=== PATIENT | male | born 1950 | race Caucasian/White ===

== ENCOUNTER → 2023-08-06 07:10 | Outpatient (REF) | payer OTHER, SELFPAY | LOC: HWRAD 07:10 | PROVIDERS: ATTENDING PHYSICIAN Internal Medicine Critical Care Medicine; FAMILY PHYSICIAN Family Medicine | DX: R91.1 Solitary pulmonary nodule (principal) | CPT/HCPCS: 71250 ==

== ENCOUNTER 2023-10-29 15:51 | Inpatient (IN) | payer OTHER, SELFPAY ==
[2023-10-29] VITALS (10 sets, daily range): BP systolic 110–133; BP diastolic 56–78; BMI 24.2; BMI 23.9
[2023-10-29] MEDS: DUONEB 3 ML INH ×2 (12:34→19:50)
[2023-10-29] MEDS: DECADRON 10 MG IV (12:34)
[2023-10-29 13:10] LABS: % Basophils 0.3 % (0-2); % Eosinophils 0.4 % (0-6); % Immature Granulocytes 0.4 % (0-0.5); % Monocytes 8.3 % (1.7-9.3); % Neutrophils 88.6 % (42.2-75.2); Absolute Eosinophils 0.1 10^3/uL (0-0.7); Absolute Immature Granulocytes 0.1 10^3/uL (0-0.05); Absolute Lymphocytes 0.3 10^3/uL (1.2-3.4); Absolute Monocytes 1.3 10^3/uL (0.1-0.6); Absolute Neutrophils 13.8 10^3/uL (1.4-6.5); Hematocrit 42.1 % (39.0-52.0); Hemoglobin 14.2 g/dL (13.0-18.0); Mean Corp Hgb Conc. 33.7 g/dL (33.0-37.0); Mean Corpuscular Volume 94.8 fL (80.0-94.0); Mean Platelet Volume 9.6 fL (7.4-10.4); Nucleated Red Blood Cells % 0 % (-); Platelet Count 269 10^3/uL (130-400); Red Blood Cell Count 4.44 10^6/uL (4.70-6.10); Red Cell Dist. Width 12.7 % (11.5-14.5); White Blood Cell Count 15.6 10^3/uL (4.8-10.8)
[2023-10-29 13:11] LABS: Lactic Acid 2.6 mmol/L (0.7-2.0)
[2023-10-29 13:12] LABS: ALT (SGPT) 34 U/L (0-50); AST (SGOT) 43 U/L (17-59); Albumin 3.7 g/dl (3.5-5.0); Alkaline Phosphatase 97 U/L (38-126); Blood Urea Nitrogen 21 mg/dl (9-20); Calcium 8.9 mg/dl (8.4-10.2); Carbon Dioxide 30 mmol/L (22-30); Chloride 85 mmol/L (98-107); Glucose 157 mg/dl (70-99); Potassium 4.2 mmol/L (3.5-5.1); Sodium 123 mmol/L (135-145); Total Bilirubin 1.4 mg/dl (0.2-1.3); eGFR > 60.00
[2023-10-29 13:30] LABS: NT-proBNP 3510 pg/ml
[2023-10-29] MEDS: MAXIPIME 2000 MG IV (13:54)
[2023-10-29 15:24] LABS: Osmolality Serum 267 mOsm/kg (275-300)
[2023-10-29] MEDS: VANCOCIN 540 MG IV (15:24)
--- NOTE | 2023-10-29 15:41 | CON.PUL ---
Consultation
Consultation Request
Date/Time Consultation Requested: 10/29/2023
Date/Time Consultation Performed: 10/29/2023
Performing Provider: Dr. Kilo Virk
Reason for Consultation: Acute exacerbation of COPD/pneumonia
Medical History
-
History of Present Illness:
73-year-old man with history of COPD, seen in the pulmonary office today 10/29/2023. Came complaining of worsening shortness of breath, hypoxemic on arrival. Increased work of breathing. Complaining of night sweats and chills.
Symptoms ongoing for about a week, including decreased appetite and fatigue. Denies leg edema. Denies hemoptysis.
Sent to the emergency room for evaluation.
Patient is mildly hypoxemic.
Does report some coughing without purulent sputum production.
Denies leg edema.
Denies nausea vomiting or diarrhea.
Overall he has gained weight over the years.
Pt has been compliant with medications.
Past Medical History
Past Medical History: Other (See assessment and plan section)
Social History
Tobacco: Former Smoker
Alcohol: None
Drug: None
Personal:
Living: With Family
Family History
Family History: Reviewed & Not Pertinent
Allergies / Home Medications
Allergies
Allergy/AdvReac Type Severity Reaction Status Date / Time
doxycycline Allergy Unknown Hives Verified 10/29/23 11:54
lisinopril Allergy Unknown cough Verified 10/29/23 11:54
Home Medications
�Medication �Instructions �Recorded �Confirmed �Last Taken �Type
tamsulosin 0.4 mg capsule (Flomax) 0.4 mg PO BID Urinary Issue 06/15/14 10/29/23 10/29/23 History
amlodipine 2.5 mg tablet 10 mg PO DAILY Blood Pressure 09/11/16 10/29/23 10/29/23 History
multivitamin 1 ea PO DAILY Supplement 12/16/18 10/29/23 10/29/23 History
fluticasone fur. 200 mcg-umeclid 1 inh inhalation DAILY 08/07/22 10/29/23 10/29/23 History
62.5 mcg-vilant 25 mcg Lung/Breathing Issues
inhalat.powder (Trelegy Ellipta)
albuterol sulfate 90 mcg/actuation 2 puff inhalation Q4H PRN sob 11/03/22 10/29/23 10/29/23 History
aerosol inhaler (ProAir HFA)
omeprazole 40 mg capsule,delayed 40 mg PO BID GERD 10/29/23 10/29/23 10/29/23 History
release
valsartan 320 mg tablet (Diovan) 320 mg PO DAILY Blood Pressure 10/29/23 10/29/23 10/29/23 History
Review of Systems
-
History Source: Patient
All other systems: Negative unless noted
Vitals / Labs / Diagnostic Testing
Vital Signs
Temp Pulse Resp BP Pulse Ox
99.1 F 99 23 123/61 91
10/29/23 11:53 10/29/23 14:45 10/29/23 14:45 10/29/23 14:00 10/29/23 14:45
Lab Data
10/29/23 12:37
10/29/23 12:37
Diagnostic Testing:
Physical Exam
-
HEENT: Normocephalic
Cardiovascular: S1/S2
Respiratory: Wheeze (minimal bilaterally, scattered ronchi.)
GI: Soft and Non Distended
Neurology: Awake, Alert and Oriented
Skin: Warm
General: Respiratory Distress (n)
Assessment
-
73-year-old man with history of COPD-severe, atrial fibrillation, former smoker who is here for progressive shortness of breath. Sent to the emergency room from the pulmonary office as he was found also to be hypoxemic with increased work of
breathing.
Acute exacerbation of COPD/hypoxemic respiratory insufficiency
Chest x-ray 10/29/2023: Possible small right midlung opacity which could represent pneumonia.
Pneumonia
Leukocytosis
Hyponatremia
Mildly increased troponin: Increased proBNP. Cannot rule out cardiac etiology for symptoms as well.
EKG: Sinus tachycardia with premature ventricular complexes. Left atrial enlargement. Incomplete right bundle branch block. Nonspecific T T wave abnormality
Conditions present prior admission:
Hypertension
Prostate cancer status post radiation therapy
Premature ventricular contraction
Atrial fibrillation/atrial flutter status post ablation June 2015
History of multiple concussions
Hypercholesterolemia
History of gout
Polycythemia vera
Obstructive sleep apnea-gained about 30 pounds in the last 2 years.-Not on CPAP.
Peripheral eosinophilia
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
FEV1 0.82 L or 25% of predicted. Diffusion capacity 36%.
On Trelegy
Cardiomyopathy-35% ejection fraction.-LVEF recovered on echocardiogram 06/09/2022.
Esophageal cancer
Former smoker quit in 2019
History of waxing waning lung nodules last CT scan 08/06/2023

Plan and recommendations:
Clinical picture consistent with acute exacerbation of COPD, sent from the office for increased work of breathing and hypoxemia.
Comfortable in ED, says feels better.
Hemodynamically stable.
Chest x-ray suggestive of pneumonia.
Patient does have severe COPD. He was recommended in the past to get a transplant evaluation but he declined.
-
Agree with antibiotic therapy
Get a sputum culture
Secretion clearance interventions: Acapella device, mucolytic's
-
Continue oxygen supplementation to maintain pulse ox above 90%.
Currently on 3L ( usually not on supplemetal oxygen)
-
Agree with IV corticosteroids- minimal bronchospasm on exam.
Nebulizer with DuoNebs QID.
Okay to continue inhalers for now. If unable to perform maneuver then will transition to Pulmicort as well.
-
Chest x-ray as needed depending on clinical situation per
Patient will need radiographic follow-up in the outpatient setting.
Last CT chest from 08/06/2023 without any abnormality in the left lower lobe. He does have history of waxing waning pulmonary nodules.
-
Trend troponins. Currently chest pain-free.
Increased proBNP: May be in the setting of hypoxemia and RV dysfunction/underlying severe lung disease. Chest x-ray does not suggest pulmonary edema.
Echocardiogram ordered
Last echocardiogram showed normal LVEF of 65%. Mild MR. Normal biventricular size with pulmonary hypertension.
-
Hyponatremia management per primary team
-
Monitor blood sugars on high-dose corticosteroids.
Target 140-180.
Insulin as needed
-
DVT prophylaxis
-
Will follow
Outpatient pulmonary follow-up with Dr. Traylor after discharge.
--- NOTE | 2023-10-29 15:41 | HPS.HSE ---
Addendum entered and electronically signed by Curt Cortez MD 10/29/23 16:02:
see update note
Original Note:
Family Physician
-
Family Physician: Vivek Phillip
Chief Complaint
-
Shortness of Breath
History of Present Illness
Patient is a 73 y/o male with a past medical history of chronic obstructive pulmonary disease, hypertension, atrial fibrillation (status post ablation), and hypertension who presents with his for shortness of breath, productive cough,
subjective fever, lethargy, anorexia, and weakness that began on Wednesday night. On Wednesday and he started having chills, feeling weak, and coughing up thick brown sputum. His shortness of breath has gradually gotten worse during the week.
He made an appointment with pulmonology and was seen this morning for these symptoms. During the appointment, his pulse ox reading was in the 80s so he was sent to the emergency department. His reports that his liquid intake has been very poor
this week. She reports that yesterday he only drank a 6 oz cup of coffee and a bottle of water. He reports that his was sick with similar symptoms last week and was treated with Augmentin. He denies chest pain, lightheadedness, and lower
extremity edema. He denies prior episodes of pneumonia, or heart failure.
Medical History
Past Medical History
Past Medical History: Reports Other
Additional Past Medical History:
Paroxysmal atrial Fibrillation s/p Ablation Jun 2015
Essential Hypertension
Hyperlipidemia
Emphysema/COPD
Polycythemia Vera
Tejada's Esophagus
Prostate Cancer s/p Radiation Seeds
Past Surgical History: Reports Other
Additional Past Surgical History:
Tonsillectomy
Hernia Repair
Social History
Tobacco: Former Smoker (Quit 3 years ago)
Alcohol: Daily ([place] - Notes only one drink in the week due to feeling unwell)
Family History
Family History: Not pertinent
Allergies / Home Medications
Allergies reflects when Allergies were last updated in [facility].
Home Medications with original date entered in [facility]
Allergy/Medication List:
Allergies
Allergy/AdvReac Type Severity Reaction Status Date / Time
doxycycline Allergy Unknown Hives Verified 10/29/23 11:54
lisinopril Allergy Unknown cough Verified 10/29/23 11:54
Home Medications
tamsulosin 0.4 mg capsule (Flomax) 0.4 mg PO BID Urinary Issue 06/15/14
amlodipine 2.5 mg tablet 10 mg PO DAILY Blood Pressure 09/11/16
multivitamin 1 ea PO DAILY Supplement 12/16/18
fluticasone fur. 200 mcg-umeclid 62.5 mcg-vilant 25 mcg inhalat.powder (Trelegy Ellipta) 1 inh inhalation DAILY Lung/Breathing Issues 08/07/22
albuterol sulfate 90 mcg/actuation aerosol inhaler (ProAir HFA) 2 puff inhalation Q4H PRN sob 11/03/22
omeprazole 40 mg capsule,delayed release 40 mg PO BID GERD 10/29/23
valsartan 320 mg tablet (Diovan) 320 mg PO DAILY Blood Pressure 10/29/23
Review of Systems
-
A 12 point ROS was completed and negative except as noted: Yes
Constitutional: Reports Fever and Chills
Respiratory: Reports Cough and Trouble Breathing
Cardiac: Denies Chest Pain or Palpitations
Physical Exam
Vital Signs
Vital Signs
Temp Pulse Resp BP Pulse Ox
99.1 F 99 23 123/61 91
10/29/23 11:53 10/29/23 14:45 10/29/23 14:45 10/29/23 14:00 10/29/23 14:45
Physical Exam
General: Comfortable and Conversant
HEENT: Anicteric, Moist mucous membranes and Oxygen (Nasal Cannula)
Respiratory: Wheezes (Few scattered, more prominent on left) and Rales (Few bilateral bases)
Cardiac: S1/S2 and Regular Rhythm; No Murmur
GI: Soft, Non Tender and Non Distended
Rectal: Deferred by Provider
Musculoskeletal: No Clubbing, No Cyanosis and No Edema
Skin: Warm and Dry
Neuro: Awake, Alert, Oriented and Nonfocal/grossly intact
Psych: Calm
Laboratory Results
-
10/29/23 12:37
10/29/23 12:37
Laboratory Results
Lactic Acid 2.6 mmol/L (0.7-2.0) H 10/29/23 12:37
Total Bilirubin 1.4 mg/dl (0.2-1.3) H 10/29/23 12:37
AST 43 U/L (17-59) 10/29/23 12:37
ALT 34 U/L (0-50) 10/29/23 12:37
Alkaline Phosphatase 97 U/L (38-126) 10/29/23 12:37
Troponin I 0.050 ng/ml H* 10/29/23 12:37
Data Reviewed
-
Diagnostic Radiology: Report Reviewed by me
Lab Data: Labs Reviewed by me
Old Records: Reviewed
Impression/Plan
-
Acute Hypoxic Respiratory Insufficiency secondary to Pneumonia and Acute COPD Exacerbation
-Continue supplemental oxygen via nasal cannula
-Consult Pulmonary
Severe Sepsis secondary to Pneumonia
-Check COVID and Influenza
-Check strep and legionella antigen
-Check blood culture
-Check procalcitonin
-Continue ceftriaxone and azithromycin
Acute COPD Exacerbation
-Continue Decadron
-Continue DuoNeb QID and PRN
-Continue Pulmicort Neb
Elevated Troponin, suspect Non-Ischemic Myocardial Injury due to hypxa
-Continue to trend troponin
-Check Echo
Hyponatremia, unclear volume status
-Consult Nephrology
-Check serum osmo, urine osmo and urine sodium
-Check TSH and Cortisol
Paroxysmal Atrial Fibrillation s/p Ablation Jun 2015
-Monitor on Telemetry
Essential Hypertension
-Continue amlodipine and valsartan
Polycythemia Vera
-Hgb stable
Tejada's Esophagus
-Continue Protonix
Prostate Cancer s/p Radiation Seeds
-Continue Flomax
DVT proph: Lovenox
Code Status: Full Code
--- NOTE | 2023-10-29 15:55 | W.PN.UPDATE ---
Update Note
Progress Note Update
I saw and examined the patient.
The [employer] MACHINE OPERATOR or PA's note was reviewed and I agree with the note.
Comment: 73 y/o M hx of COPD, HTN, Afib s/p ablation presents with SOB, cough, fever, lethargy and weakness that began Wednesday night and progressed into chills and further weakness Wednesday/. His SOB worsened into today and he saw pulmonary
in office. They referred him to ER due to pulse ox 80%. In ER, found to have COPD exacerbation, PNA and hyponatremia. Pulm and Nephrology were consulted.
Plan: We will start IV Abx, IV steroids. check cultures. Check echo with concern with crackles on exam. Consider Lasix pending hyponatremia workup. Wean O2 - he is on 2L NC currently. Pulm and Nephrology were consulted - follow their recs.
Physical Exam
General: Comfortable and Conversant
HEENT: Anicteric, Moist mucous membranes and Oxygen (Nasal Cannula)
Respiratory: Wheezes (Few scattered, more prominent on left) and Rales (Few bilateral bases)
Cardiac: S1/S2 and Regular Rhythm; No Murmur
GI: Soft, Non Tender and Non Distended
Rectal: Deferred by Provider
Musculoskeletal: No Clubbing, No Cyanosis and No Edema
Skin: Warm and Dry
Neuro: Awake, Alert, Oriented and Nonfocal/grossly intact
Psych: Calm
[2023-10-29 16:12] LABS: COVID-19 Antigen Negative (Negative)
[2023-10-29 17:21] LABS: Lactic Acid 1.5 mmol/L (0.7-2.0)
[2023-10-29 17:22] LABS: Osmolality Urine 729 mOsm/kg (300-900)
--- NOTE | 2023-10-29 17:31 | W.CON.NEPH ---
Consultation
-
Date/Time Consultation Requested: 10/29/23 1400
Date/Time Consultation Performed: 10/29/23 1730
Requesting Provider: Curt Olivia
Performing Provider: Ilda Hernandez
Reason for Consultation: Hyponatremia
Medical History
-
Chief Complaint: Hypoxia, SOB
History of Present Illness:
73 y/o male with a past medical history of chronic obstructive pulmonary disease on inhalers, hypertension on diovan,Amlodipine, atrial fibrillation (status post ablation not on AC),prostate ca s/p radiation seed, GERD on PPI BID, polycythemia vera
phlebotomy by heme when HCt >48, possible chr hyponatremia in 130 range who presents with his for shortness of breath, productive cough, subjective fever, lethargy, anorexia, and weakness that began on 5days ago. started having chills, feeling
weak, and coughing up thick brown sputum few days after. His shortness of breath has gradually gotten worse during the week. He was at pulmonology this morning and pulse ox reading was in the 80s so he was sent to the emergency department. His
reports that his liquid intake has been very poor this week. He reports that his was sick with similar symptoms last week. He denies chest pain, lightheadedness, and lower extremity edema. He denies prior episodes of pneumonia, or heart failure.
He found to have COPD exacerbation, PNA and was admitted. he also found to have sodium of 123 hence nephrology consulted.
Past Medical History
Paroxysmal atrial Fibrillation s/p Ablation Jun 2015
Essential Hypertension
Hyperlipidemia
Emphysema/COPD
Polycythemia Vera
Tejada's Esophagus
Prostate Cancer s/p Radiation Seeds
Past Surgical History: Other (Tonsillectomy Hernia Repair)
Social History
Tobacco: Former Smoker (quit 3 yr ago)
Alcohol: Daily
Living: With Family
Family History
Family History: Not Pertinent
Allergies / Home Medications
Allergy/AdvReac Type Severity Reaction Status Date / Time
doxycycline Allergy Unknown Hives Verified 10/29/23 11:54
lisinopril Allergy Unknown cough Verified 10/29/23 11:54
�Medication �Instructions �Recorded �Confirmed �Type
tamsulosin 0.4 mg capsule (Flomax) 0.4 mg PO BID Urinary Issue 06/15/14 10/29/23 History
amlodipine 2.5 mg tablet 10 mg PO DAILY Blood Pressure 09/11/16 10/29/23 History
multivitamin 1 ea PO DAILY Supplement 12/16/18 10/29/23 History
fluticasone fur. 200 mcg-umeclid 1 inh inhalation DAILY 08/07/22 10/29/23 History
62.5 mcg-vilant 25 mcg Lung/Breathing Issues
inhalat.powder (Trelegy Ellipta)
albuterol sulfate 90 mcg/actuation 2 puff inhalation Q4H PRN sob 11/03/22 10/29/23 History
aerosol inhaler (ProAir HFA)
omeprazole 40 mg capsule,delayed 40 mg PO BID GERD 10/29/23 10/29/23 History
release
valsartan 320 mg tablet (Diovan) 320 mg PO DAILY Blood Pressure 10/29/23 10/29/23 History
Review of Systems
-
All complete 12 point ROS have been inquired and found negative other than stated in HPI
Physical Exam
Vital Signs
Vital Signs
Temp Pulse Resp BP Pulse Ox
98.1 F 95 16 124/76 91
10/29/23 17:26 10/29/23 17:26 10/29/23 17:26 10/29/23 17:26 10/29/23 17:26
Lab Results
WBC 15.6 10^3/uL (4.8-10.8) H 10/29/23 12:37
RBC 4.44 10^6/uL (4.70-6.10) L 10/29/23 12:37
Hgb 14.2 g/dL (13.0-18.0) 10/29/23 12:37
Hct 42.1 % (39.0-52.0) 10/29/23 12:37
Plt Count 269 10^3/uL (130-400) 10/29/23 12:37
Sodium 123 mmol/L (135-145) L 10/29/23 12:37
Potassium 4.2 mmol/L (3.5-5.1) 10/29/23 12:37
Chloride 85 mmol/L (98-107) L 10/29/23 12:37
Carbon Dioxide 30 mmol/L (22-30) 10/29/23 12:37
BUN 21 mg/dl (9-20) H 10/29/23 12:37
Creatinine 0.7 mg/dL (0.7-1.3) 10/29/23 12:37
eGFR > 60.00 10/29/23 12:37
Glucose 157 mg/dl (70-99) H 10/29/23 12:37
Calcium 8.9 mg/dl (8.4-10.2) 10/29/23 12:37
Xve-P-Mvxjunclhqo Pept 3510 pg/ml 10/29/23 12:37
Albumin 3.7 g/dl (3.5-5.0) 10/29/23 12:37
U osmo 729, U na <5
Pro BNP 3510
Physical Exam
General: Awake, Alert, Oriented, AOx3, No Distress and Nontoxic
HEENT: EOMI, Anicteric and No JVD
Respiratory: Wheezes (mild at bases) and Normal Excursion
Cardiac: S1/S2 and Regular Rate/Rhythm
Abdomen: Soft, Nontender and Nondistended
Musculoskeletal: No Cyanosis and No Edema
Skin: No Rash and Normal Turgor
Neuro: Nonfocal/Grossly Intact
Psych: Mood/afflect pleasant, Insight/judgement good and Appropriate
Data Reviewed
-
Radiology: Image Personally Visualized and interpreted and Report Reviewed by me
Labs: Labs Reviewed by me, Discussed with Patient and Discussed with Family
Assessment/Plan
-
IMP:
Acute Hypoxic Respiratory Insufficiency secondary to Pneumonia and Acute COPD Exacerbation
Severe Sepsis secondary to Pneumonia
Acute COPD Exacerbation
Elevated Troponin, suspect Non-Ischemic Myocardial Injury due to hypxa
Hyponatremia
Paroxysmal Atrial Fibrillation s/p Ablation Jun 2015
Essential Hypertension
Polycythemia Vera-phlebotomy with hematology
Tejada's Esophagus
Prostate Cancer s/p Radiation Seeds
PLan:
A/w COPD exacerabtion
Acute on chr Hyponatremia, suspect mild hypervolemia with elevated BNP, COPD flare
high ADH state, U osmo high at 729, U na <5-suggest cardiorenal vs poor solute intake
check TSH and cortisol in am
likely will dose lasix today(pt wants only oral today) with FR 40 ounces/day
check echo
BP are stable , cont home meds
d/w pt and at bedside in detail
[2023-10-29 17:33] LABS: Troponin I 0.033 ng/ml
[2023-10-29 17:37] LABS: Urine Sodium < 5 mmol/L (30-90)
[2023-10-29 17:47] LABS: Procalcitonin 1.24 ng/ml (0.0-0.25)
[2023-10-29] MEDS: DUONEB INH (18:03)
[2023-10-29] MEDS: FLUSH (NSS) 2 FLUSH IV (18:11)
[2023-10-29] MEDS: DECADRON 4 MG IV (18:11)
--- NOTE | 2023-10-29 18:18 | PTCARENOTE ---
pt arrived to unit at 1715 via stretcher from ED. pt has IV vanco running and connected to 2LNC. assessment completed by this nurse. pt and oriented to unit. AAOX3. connected to tele #[id number] running SR w/ frequent PVCs. admissions completed
[2023-10-29] MEDS: LASIX 20 MG PO (18:22)
[2023-10-29] MEDS: PULMICORT 0.5 MG INH (19:50)
[2023-10-29] MEDS: FLOMAX 0.400000000000000022 MG PO (20:49)
[2023-10-29] MEDS: ROCEPHIN 1000 MG IV (20:49)
[2023-10-29] MEDS: PROTONIX 40 MG PO (20:50)
[2023-10-29] MEDS: STERILE WATER FOR INJECTION 10 ML IV (20:50)
[2023-10-29] MEDS: FLUSH (NSS) 1 FLUSH IV (20:50)
[2023-10-30] VITALS (8 sets, daily range): BP systolic 113–122; BP diastolic 67–84; PULSE 88; O2SAT 83–87; BMI 23.9
[2023-10-30 00:38] LABS: Troponin I 0.015 ng/ml
[2023-10-30] MEDS: FLUSH (NSS) 1 FLUSH IV ×3 (01:05→20:44)
[2023-10-30] MEDS: DECADRON 4 MG IV ×4 (01:05→18:08)
[2023-10-30] MEDS: PULMICORT 0.5 MG INH ×2 (07:34→18:00)
[2023-10-30] MEDS: DUONEB 3 ML INH ×4 (07:34→18:00)
[2023-10-30] MEDS: ZITHROMAX 500 MG PO (08:38)
[2023-10-30] MEDS: DIOVAN 320 MG PO (08:39)
[2023-10-30] MEDS: PROTONIX 40 MG PO ×2 (08:39→20:43)
[2023-10-30] MEDS: FLOMAX 0.400000000000000022 MG PO ×2 (08:39→20:43)
[2023-10-30] MEDS: NORVASC 10 MG PO (08:39)
[2023-10-30 09:48] LABS: Hematocrit 40.4 % (39.0-52.0); Hemoglobin 14.2 g/dL (13.0-18.0); Mean Corp Hgb Conc. 35.1 g/dL (33.0-37.0); Mean Corpuscular Hgb 32.3 pg (27.0-31.0); Mean Platelet Volume 9.6 fL (7.4-10.4); Platelet Count 234 10^3/uL (130-400); Red Blood Cell Count 4.39 10^6/uL (4.70-6.10); Red Cell Dist. Width 12.4 % (11.5-14.5); White Blood Cell Count 12.3 10^3/uL (4.8-10.8)
--- NOTE | 2023-10-30 10:07 | W.PN.PUL3 ---
Today's Communication / Plan
-
Systemic steroids with wean as tolerated
DuoNebs + Budesonide
Up OOB as tolerated
Incentive spirometer encouraged
Flutter valve
Abx - azithromycin x 5 days, cephalosporin x 7 days
Assessment
-
73-year-old man with history of COPD-severe, atrial fibrillation, former smoker who is here for progressive shortness of breath. Sent to the emergency room from the pulmonary office as he was found also to be hypoxemic with increased work of
breathing.
Acute exacerbation of COPD/hypoxemic respiratory insufficiency
Chest x-ray 10/29/2023: Possible small right midlung opacity which could represent pneumonia.
Pneumonia
Leukocytosis
Hyponatremia
Mildly increased troponin: Increased proBNP. Cannot rule out cardiac etiology for symptoms as well.
EKG: Sinus tachycardia with premature ventricular complexes. Left atrial enlargement. Incomplete right bundle branch block. Nonspecific T T wave abnormality
Conditions present prior admission:
Hypertension
Prostate cancer status post radiation therapy
Premature ventricular contraction
Atrial fibrillation/atrial flutter status post ablation June 2015
History of multiple concussions
Hypercholesterolemia
History of gout
Polycythemia vera
Obstructive sleep apnea-gained about 30 pounds in the last 2 years.-Not on CPAP.
Peripheral eosinophilia
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
FEV1 0.82 L or 25% of predicted. Diffusion capacity 36%.
On Trelegy
Cardiomyopathy-35% ejection fraction.-LVEF recovered on echocardiogram 06/09/2022.
Esophageal cancer
Former smoker quit in 2018
History of waxing waning lung nodules last CT scan 08/06/2023

Plan and recommendations:
Clinical picture consistent with acute exacerbation of COPD, sent from the office for increased work of breathing and hypoxemia.
Comfortable in ED, says feels better.
Hemodynamically stable.
Chest x-ray suggestive of pneumonia.
Patient does have very severe COPD (FEV1: 25%). He was recommended in the past to get a transplant evaluation but he declined.
-
Agree with antibiotic therapy
Sputum culture obtained today - follow up
Secretion clearance interventions: Acapella device, mucolytic's
-
Continue oxygen supplementation to maintain pulse ox above 90%.
Currently on 2L ( usually not on supplemental oxygen)
-
Agree with IV corticosteroids- minimal bronchospasm on exam.
Nebulizer with DuoNebs QID with pulmicort 0.5mg BID
-
Patient will need radiographic follow-up in the outpatient setting.
Last CT chest from 08/06/2023 without any abnormality in the left lower lobe. He does have history of waxing waning pulmonary nodules.
-
No need to continue trending troponin given it peaked at 0.05 on 10/29/2023 - currently chest pain-free.
Increased proBNP: May be in the setting of hypoxemia and RV dysfunction/underlying severe lung disease. Chest x-ray does not suggest pulmonary edema.
Echocardiogram ordered with LVEF 50-55% with RV pressure overload with mild pHTN (PASP: 39mmHg assuming RAP: 8)
Last echocardiogram showed normal LVEF of 65%. Mild MR. Normal biventricular size with pulmonary hypertension.
-
Hyponatremia management per primary team
-
Monitor blood sugars on high-dose corticosteroids.
Target 140-180.
Insulin as needed
-
DVT prophylaxis
-
Will follow
Outpatient pulmonary follow-up with Dr. Traylor after discharge.
Total time spent today was 35 minutes for this encounter. Time includes reviewing laboratory test/imaging results, reviewing pertinent medical records, obtaining and reviewing medical history, performing an appropriate exam, ordering medications,
tests and procedures. Time also includes documentation of this encounter, coordinating patient care and communicating with other healthcare professionals. Total time does not include separately billed tests performed on this date of service.
Subjective Data
-
Date of Service:
Date of Service: October 30, 2023
Chief Complaint: Pulmonary Follow Up
Subjective:
Patient seen this morning. at bedside. He is on 2 L/min nasal cannula breathing comfortably. Of note, he is not on home oxygen. He denies chest pain, headache, abdominal pain, fevers or chills.
Review of Systems
General: Other (Negative unless mentioned above)
Objective Data
Data Reviewed
Vital Signs / I&O / Oxygen:
Vital Signs
Temp Pulse Resp BP Pulse Ox
97.5 F 84 17 113/69 94
10/30/23 07:52 10/30/23 07:52 10/30/23 07:52 10/30/23 07:52 10/30/23 07:52
Intake and Output
10/29/23 10/30/23 10/31/23
06:59 06:59 06:59
Intake Total 280 / 280
Balance 280 / 280
SaO2 94
Nasal Cannula flow liters per 2
minute
Physical Exam
General: Respiratory Distress (Negative) and Comfortable
HEENT: Normocephalic and Anicteric
Cardiovascular: S1-S2 and Peripheral Edema (Negative)
Respiratory: Wheeze (Hopkins best in the anterior right hemithorax), Crackles (Negative), Rhonchi (Right posterior hemithorax), Accessory Resp Muscle Use (Negative) and Other (Bronchial breath sounds in the right posterior hemithorax)
GI: Soft, Non Distended and Non Tender
Neurology: AO x 3
Skin: Warm, Dry and Cyanosis (Negative)
Labs/Micro/Reports
Lab Data
10/30/23 08:58
Microbiology
10/29/23 15:23 Urine Legionella Urinary Antigen - Final
Negative for Legionella pneumophila Serogroup 1 antigen.
A negative result does not rule out the possiblity of
Legionella infection due to other serogroups or species of
Legionella. Clinical correlation is recommended.
10/29/23 15:23 Urine Streptococcus pneumoniae Antigen (M - Final
Negative for Streptococcus pneumoniae antigen.
A negative result does not exclude infection with
Streptococcus pneumoniae. Clinical correlation is
recommended.
10/29/23 15:23 Nasal Swab Influenza Types A & B (DUNIA) - Final
Negative for Influenza A & B, NAAT
Negative results must be combined with clinical observations
and patient history.
Nucleic Acid Amplification test (NAAT)performed on the
[employer] platform.
[2023-10-30 11:15] LABS: TSH Reflex To Free T4 0.53 uIU/ml (0.47-4.68)
[2023-10-30 12:40] LABS: Blood Urea Nitrogen 22 mg/dl (9-20); Calcium 8.9 mg/dl (8.4-10.2); Carbon Dioxide 27 mmol/L (22-30); Chloride 90 mmol/L (98-107); Estimated Creatinine Clearance 119 ml/min; Glucose 186 mg/dl (70-99); Potassium 4.1 mmol/L (3.5-5.1); Sodium 125 mmol/L (135-145); eGFR > 60.00
--- NOTE | 2023-10-30 12:42 | W.PN.NEPH.PH ---
Today's Communication / Plan
-
lasix
Assessment/Plan
-
IMP:
Acute Hypoxic Respiratory Insufficiency secondary to Pneumonia and Acute COPD Exacerbation
Severe Sepsis secondary to Pneumonia
Acute COPD Exacerbation
Elevated Troponin, suspect Non-Ischemic Myocardial Injury due to hypxa
Hyponatremia
Paroxysmal Atrial Fibrillation s/p Ablation Jun 2015
Essential Hypertension
Polycythemia Vera-phlebotomy with hematology
Tejada's Esophagus
Prostate Cancer s/p Radiation Seeds
PLan:
lasix 20mg po daily given echo findings.
follow BMP
TSH/cortisol ok
wean O2 as allowed
-
-
Date of Service: October 30, 2023
CC / HPI / ROS
-
Chief Complaint:
hyponatremia
History of Present Illness:
Na up to 125
BP stable
diuresed with lasix for CHF
Review of Systems:
no CP/SOB
remains on supplemental O2
Labs
-
Labs:
WBC 12.3 10^3/uL (4.8-10.8) H 10/30/23 08:58
RBC 4.39 10^6/uL (4.70-6.10) L 10/30/23 08:58
Hgb 14.2 g/dL (13.0-18.0) 10/30/23 08:58
Hct 40.4 % (39.0-52.0) 10/30/23 08:58
Plt Count 234 10^3/uL (130-400) 10/30/23 08:58
Sodium 125 mmol/L (135-145) L 10/30/23 08:58
Potassium 4.1 mmol/L (3.5-5.1) 10/30/23 08:58
Chloride 90 mmol/L (98-107) L 10/30/23 08:58
Carbon Dioxide 27 mmol/L (22-30) 10/30/23 08:58
BUN 22 mg/dl (9-20) H 10/30/23 08:58
Creatinine 0.4 mg/dL (0.7-1.3) L 10/30/23 08:58
eGFR > 60.00 10/30/23 08:58
Glucose 186 mg/dl (70-99) H 10/30/23 08:58
Calcium 8.9 mg/dl (8.4-10.2) 10/30/23 08:58
Cvi-W-Ljmkdxzpdjo Pept 3510 pg/ml 10/29/23 12:37
Albumin 3.7 g/dl (3.5-5.0) 10/29/23 12:37
Physical Exam
-
Vital Signs:
Vital Signs
Temp Pulse Resp BP Pulse Ox
97.6 F 76 20 117/84 98
10/30/23 11:04 10/30/23 11:12 10/30/23 11:12 10/30/23 11:04 10/30/23 11:12
Cardiovascular:: Regular rate and rhythm
Respiratory:: Bilateral: Coarse
Lung Excursion:: Normal
Abdomen:: Nontender and Soft
Bowel Sounds:: Normal
Extremity Edema:: None: Bilateral:
--- NOTE | 2023-10-30 13:27 | W.PN.HOSP.TC ---
Today's Communication/Plan
-
CW ABX
CW Steroids
Follow Na
Assessment / Plan
Assessment / Plan
Acute Hypoxic Respiratory Insufficiency secondary to Pneumonia and Acute COPD Exacerbation
-Continue supplemental oxygen via nasal cannula
-wean as able
Severe Sepsis secondary to Pneumonia
-neg COVID and Influenza
-neg strep and legionella antigen
-pending blood culture
-Continue ceftriaxone and azithromycin
Acute COPD Exacerbation
-Continue Decadron
-Continue DuoNeb QID and PRN
-Continue Pulmicort Neb
- Pulm following
Elevated Troponin, suspect Non-Ischemic Myocardial Injury due to hypoxia
- Continue to trend troponin
- Echo noted
Hyponatremia, unclear volume status
- Nephrology following
-Serum osmo, urine osmo and urine sodium noted
-cw FR
Paroxysmal Atrial Fibrillation s/p Ablation Jun 2015
-Monitor on Telemetry
Essential Hypertension
-Continue amlodipine and valsartan
Polycythemia Vera
-Hgb stable
Tejada's Esophagus
-Continue Protonix
Prostate Cancer s/p Radiation Seeds
-Continue Flomax
DVT proph: Lovenox
Code Status: Full Code
Anticipated Discharge: > 48 hours
Subjective/Interval History
-
Date of Service: October 30, 2023
Improved breathing
Objective Data
-
Labs:
Laboratory Results
10/30/23
08:58
WBC 12.3 H
Hgb 14.2
Hct 40.4
Plt Count 234
Sodium 125 L
Potassium 4.1
Chloride 90 L
Carbon Dioxide 27
BUN 22 H
Creatinine 0.4 L
Glucose 186 H
Calcium 8.9
Vital Signs:
Vital Signs
Temp Pulse Resp BP Pulse Ox
97.6 F 76 20 117/84 98
10/30/23 11:04 10/30/23 11:12 10/30/23 11:12 10/30/23 11:04 10/30/23 11:12
I&O
10/29/23 10/30/23 10/31/23
06:59 06:59 06:59
Intake Total 280 / 280
Balance 280 / 280
Review of Systems
-
Constitutional: Denies Fever
EENT: Denies Sore Throat
Cardiac: Denies Chest Pain
Abdomen/GI: Denies Nausea or Vomiting
Neuro: Denies Dizzy
Physical Exam
-
General: No Apparent Distress
HEENT: Moist Mucous Membranes
Respiratory: Crackles (rt mid zone ), Non Labored Respirations and Decreased Breath Sounds (in general); Negative Accessory Resp Muscle Use
Cardiac: Regular Rhythm and S1/S2
Neuro: AO x 3
Data Reviewed
-
Labs: Labs Reviewed by me
[2023-10-30] MEDS: LASIX 20 MG PO (14:32)
[2023-10-30] MEDS: ROCEPHIN 1000 MG IV (20:43)
[2023-10-30] MEDS: STERILE WATER FOR INJECTION 10 ML IV (20:43)
[2023-10-31] MEDS: DECADRON 4 MG IV ×5 (00:02→23:42)
[2023-10-31] MEDS: FLUSH (NSS) 1 FLUSH IV (00:03)
[2023-10-31 03:20] VITALS: BP 122/66
[2023-10-31 06:00] VITALS: BMI 24.1
[2023-10-31] MEDS: PULMICORT 0.5 MG INH ×2 (07:27→19:20)
[2023-10-31] MEDS: DUONEB 3 ML INH ×4 (07:28→19:21)
[2023-10-31 07:46] VITALS: BP 111/75
[2023-10-31] MEDS: ZITHROMAX 500 MG PO (08:20)
[2023-10-31] MEDS: DIOVAN 320 MG PO (08:20)
[2023-10-31] MEDS: PROTONIX 40 MG PO ×2 (08:21→20:00)
[2023-10-31] MEDS: FLOMAX 0.400000000000000022 MG PO ×2 (08:21→20:00)
[2023-10-31] MEDS: LASIX 20 MG PO (08:21)
[2023-10-31] MEDS: NORVASC 10 MG PO (08:22)
[2023-10-31 08:56] LABS: Hematocrit 39.9 % (39.0-52.0); Hemoglobin 14.3 g/dL (13.0-18.0); Mean Corp Hgb Conc. 35.8 g/dL (33.0-37.0); Mean Corpuscular Hgb 32.2 pg (27.0-31.0); Mean Corpuscular Volume 89.9 fL (80.0-94.0); Mean Platelet Volume 9.5 fL (7.4-10.4); Platelet Count 261 10^3/uL (130-400); Red Blood Cell Count 4.44 10^6/uL (4.70-6.10); Red Cell Dist. Width 12.5 % (11.5-14.5); White Blood Cell Count 12.1 10^3/uL (4.8-10.8)
[2023-10-31 09:06] LABS: Blood Urea Nitrogen 24 mg/dl (9-20); Calcium 9.3 mg/dl (8.4-10.2); Carbon Dioxide 28 mmol/L (22-30); Chloride 89 mmol/L (98-107); Estimated Creatinine Clearance 119 ml/min; Glucose 173 mg/dl (70-99); Potassium 3.9 mmol/L (3.5-5.1); Sodium 128 mmol/L (135-145); eGFR > 60.00
[2023-10-31 11:18] VITALS: BP 110/66
--- NOTE | 2023-10-31 12:10 | W.PN.NEPH.PH ---
Today's Communication / Plan
-
continue lasix
Assessment/Plan
-
IMP:
Acute Hypoxic Respiratory Insufficiency secondary to Pneumonia and Acute COPD Exacerbation
Severe Sepsis secondary to Pneumonia
Acute COPD Exacerbation
Elevated Troponin, suspect Non-Ischemic Myocardial Injury due to hypxa
Hyponatremia
Paroxysmal Atrial Fibrillation s/p Ablation Jun 2015
Essential Hypertension
Polycythemia Vera-phlebotomy with hematology
Tejada's Esophagus
Prostate Cancer s/p Radiation Seeds
PLan:
lasix 20mg po daily given echo findings/hyponatremia.
follow BMP
wean O2 as allowed
-
-
Date of Service: October 31, 2023
CC / HPI / ROS
-
Chief Complaint:
hyponatremia
History of Present Illness:
Na up to 128
BP stable
diuresed with lasix for CHF
on supplemental O2 still 2L
Review of Systems:
no CP/SOB
remains on supplemental O2
Labs
-
Labs:
WBC 12.1 10^3/uL (4.8-10.8) H 10/31/23 08:35
RBC 4.44 10^6/uL (4.70-6.10) L 10/31/23 08:35
Hgb 14.3 g/dL (13.0-18.0) 10/31/23 08:35
Hct 39.9 % (39.0-52.0) 10/31/23 08:35
Plt Count 261 10^3/uL (130-400) 10/31/23 08:35
Sodium 128 mmol/L (135-145) L 10/31/23 08:35
Potassium 3.9 mmol/L (3.5-5.1) 10/31/23 08:35
Chloride 89 mmol/L (98-107) L 10/31/23 08:35
Carbon Dioxide 28 mmol/L (22-30) 10/31/23 08:35
BUN 24 mg/dl (9-20) H 10/31/23 08:35
Creatinine 0.4 mg/dL (0.7-1.3) L 10/31/23 08:35
eGFR > 60.00 10/31/23 08:35
Glucose 173 mg/dl (70-99) H 10/31/23 08:35
Calcium 9.3 mg/dl (8.4-10.2) 10/31/23 08:35
Eax-P-Ytyokuphgvw Pept 3510 pg/ml 10/29/23 12:37
Albumin 3.7 g/dl (3.5-5.0) 10/29/23 12:37
Physical Exam
-
Vital Signs:
Vital Signs
Temp Pulse Resp BP Pulse Ox
97.5 F 80 16 110/66 96
10/31/23 11:18 10/31/23 11:28 10/31/23 11:28 10/31/23 11:18 10/31/23 11:18
Cardiovascular:: Regular rate and rhythm
Respiratory:: Bilateral: Coarse
Lung Excursion:: Normal
Abdomen:: Nontender and Soft
Bowel Sounds:: Normal
Extremity Edema:: None: Bilateral:
--- NOTE | 2023-10-31 13:08 | W.PN.HOSP.TC ---
Today's Communication/Plan
-
Wean oxygen.
Continue antibiotics
Wean steroids per pulmonary
DC plan
Assessment / Plan
Assessment / Plan
Acute Hypoxic Respiratory Insufficiency secondary to Pneumonia and Acute COPD Exacerbation
-Continue supplemental oxygen via nasal cannula -currently on 2 L
-wean as able
Severe Sepsis secondary to Pneumonia
-neg COVID and Influenza
-neg strep and legionella antigen
-Negative blood culture
-Continue ceftriaxone and azithromycin
Acute COPD Exacerbation
-Continue Decadron
-Continue DuoNeb QID and PRN
-Continue Pulmicort Neb
- Pulm following
Elevated Troponin, suspect Non-Ischemic Myocardial Injury due to hypoxia
- Continue to trend troponin
- Echo noted
Hyponatremia, unclear volume status
- Nephrology following
-Serum osmo, urine osmo and urine sodium noted
-cw FR
-Improving sodium
Paroxysmal Atrial Fibrillation s/p Ablation Jun 2015
-Monitor on Telemetry
Essential Hypertension
-Continue amlodipine and valsartan
Polycythemia Vera
-Hgb stable
Tejada's Esophagus
-Continue Protonix
Prostate Cancer s/p Radiation Seeds
-Continue Flomax
DVT proph: Lovenox
Code Status: Full Code
DC planning
Anticipated Discharge: Within 24 hours
Subjective/Interval History
-
Date of Service: October 31, 2023
Feeling improved.
Objective Data
-
Labs:
Laboratory Results
10/31/23
08:35
WBC 12.1 H
Hgb 14.3
Hct 39.9
Plt Count 261
Sodium 128 L
Potassium 3.9
Chloride 89 L
Carbon Dioxide 28
BUN 24 H
Creatinine 0.4 L
Glucose 173 H
Calcium 9.3
Vital Signs:
Vital Signs
Temp Pulse Resp BP Pulse Ox
97.5 F 80 16 110/66 96
10/31/23 11:18 10/31/23 11:28 10/31/23 11:28 10/31/23 11:18 10/31/23 11:18
I&O
10/30/23 10/31/23 11/01/23
06:59 06:59 06:59
Intake Total 280 / 280 1355 / 1355
Balance 280 / 280 1355 / 1355
Review of Systems
-
Constitutional: Denies Fever
EENT: Denies Sore Throat
Respiratory: Reports Trouble Breathing (improved)
Cardiac: Denies Chest Pain
Abdomen/GI: Denies Abdominal Pain, Nausea or Vomiting
Neuro: Denies Dizzy
Physical Exam
-
General: No Apparent Distress
HEENT: Moist Mucous Membranes
Respiratory: Clear to Auscultation and Non Labored Respirations; Negative Wheezes or Accessory Resp Muscle Use
Cardiac: Regular Rhythm and S1/S2
GI: Soft
Neuro: AO x 3
Data Reviewed
-
Labs: Labs Reviewed by me
--- NOTE | 2023-10-31 13:13 | CM ---
Met with patient and at bedside; initial assessment completed
Pharmacy verified: [facility]
Patient lives with in a multilevel home; 2 steps to enter; 13 steps between floors; railing present
PLOF: reports he is independent with ADLs and ambulation; SOB going up stairs for the last week; Drives; Works part-time
SNF/Rehab/Home Health utilization history: none
Transportation: Son or Sister will provide ride home
Outpatient Therapy recommended; patient plans to speak with [facility] tomorrow
Plan: discharge to home when medically stable; will monitor for home oxygen needs
--- NOTE | 2023-10-31 13:16 | W.PN.PUL3 ---
Today's Communication / Plan
-
Systemic steroids with wean as tolerated
DuoNebs + Budesonide
Up OOB as tolerated
Incentive spirometer encouraged
Flutter valve
Abx - azithromycin x 5 days, cephalosporin x 7 days
Assessment
-
73-year-old man with history of COPD-severe, atrial fibrillation, former smoker who is here for progressive shortness of breath. Sent to the emergency room from the pulmonary office as he was found also to be hypoxemic with increased work of
breathing.
Acute exacerbation of COPD/hypoxemic respiratory insufficiency
Chest x-ray 10/29/2023: Possible small right midlung opacity which could represent pneumonia.
Pneumonia
Leukocytosis
Hyponatremia - improving
Mildly increased troponin - peaked at 0.05 on 10/29/2023: Increased proBNP. Cannot rule out cardiac etiology for symptoms as well.
EKG: Sinus tachycardia with premature ventricular complexes. Left atrial enlargement. Incomplete right bundle branch block. Nonspecific T T wave abnormality
Conditions present prior admission:
Hypertension
Prostate cancer status post radiation therapy
Premature ventricular contraction
Atrial fibrillation/atrial flutter status post ablation June 2015
History of multiple concussions
Hypercholesterolemia
History of gout
Polycythemia vera
Obstructive sleep apnea-gained about 30 pounds in the last 2 years.-Not on CPAP.
Peripheral eosinophilia
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
FEV1 0.82 L or 25% of predicted. Diffusion capacity 36%.
On Trelegy
Cardiomyopathy-35% ejection fraction.-LVEF recovered on echocardiogram 06/09/2022.
Esophageal cancer
Former smoker quit in 2018
History of waxing waning lung nodules last CT scan 08/06/2023

Plan and recommendations:
Clinical picture consistent with acute exacerbation of COPD, sent from the office for increased work of breathing and hypoxemia.
Comfortable in ED, says feels better.
Hemodynamically stable.
Chest x-ray suggestive of pneumonia.
Patient does have very severe COPD (FEV1: 25%). He was recommended in the past to get a transplant evaluation but he declined.
-
Agree with antibiotic therapy
Sputum culture obtained on 10/29 - NGTD
Secretion clearance interventions: Acapella device, mucolytics
-
Continue oxygen supplementation to maintain pulse ox above 90%.
Currently on 2L ( usually not on supplemental oxygen) - had walking O2 study today and he requires 2L/min with activity
-
Agree with IV corticosteroids- minimal bronchospasm on exam.
Nebulizer with DuoNebs QID with pulmicort 0.5mg BID
-
Patient will need radiographic follow-up in the outpatient setting.
Last CT chest from 08/06/2023 without any abnormality in the left lower lobe. He does have history of waxing waning pulmonary nodules.
-
No need to continue trending troponin given it peaked at 0.05 on 10/29/2023 - currently chest pain-free.
Increased proBNP: May be in the setting of hypoxemia and RV dysfunction/underlying severe lung disease. Chest x-ray does not suggest pulmonary edema.
Echocardiogram ordered with LVEF 50-55% with RV pressure overload with mild pHTN (PASP: 39mmHg assuming RAP: 8)
Last echocardiogram showed normal LVEF of 65%. Mild MR. Normal biventricular size with pulmonary hypertension.
-
Hyponatremia management per primary team
-
Monitor blood sugars on high-dose corticosteroids.
Target 140-180.
Insulin as needed
-
DVT prophylaxis
-
Will follow
Outpatient pulmonary follow-up with Dr. Traylor after discharge.
Total time spent today was 35 minutes for this encounter. Time includes reviewing laboratory test/imaging results, reviewing pertinent medical records, obtaining and reviewing medical history, performing an appropriate exam, ordering medications,
tests and procedures. Time also includes documentation of this encounter, coordinating patient care and communicating with other healthcare professionals. Total time does not include separately billed tests performed on this date of service.
Subjective Data
-
Date of Service:
Date of Service: October 31, 2023
Chief Complaint: Pulmonary Follow Up
Subjective:
Patient seen this afternoon. He remains on 2 L/min nasal cannula. He feels good today. He walked around with respiratory today 140 feet and required 2 L/min during ambulation to maintain saturations of 94%. He denies chest pain, headache, fevers
or chills.
Review of Systems
General: Other (Negative unless mentioned above)
Objective Data
Data Reviewed
Vital Signs / I&O / Oxygen:
Vital Signs
Temp Pulse Resp BP Pulse Ox
98.1 F 85 18 107/59 87
10/31/23 15:28 10/31/23 15:39 10/31/23 15:39 10/31/23 15:28 10/31/23 15:39
Intake and Output
10/30/23 10/31/23 11/01/23
06:59 06:59 06:59
Intake Total 280 / 280 1355 / 1355
Balance 280 / 280 1355 / 1355
SaO2 87
Nasal Cannula flow liters per 2
minute
Physical Exam
General: Respiratory Distress (Negative) and Comfortable
HEENT: Normocephalic and Anicteric
Cardiovascular: S1-S2 and Peripheral Edema (Negative)
Respiratory: Wheeze (Posterior lung michaels bilaterally), Crackles (Negative), Rhonchi (Bilateral lung michaels), Accessory Resp Muscle Use (Negative) and Other (Bronchial breath sounds in the right posterior hemithorax)
GI: Soft, Non Distended and Non Tender
Neurology: AO x 3
Skin: Warm, Dry and Cyanosis (Negative)
Labs/Micro/Reports
Lab Data
10/31/23 08:35
10/31/23 08:35
Microbiology
10/29/23 15:23 Blood/Venous Blood Culture - Preliminary
No Growth in 48 hours- Final report to follow
10/29/23 12:37 Blood/Venous Blood Culture - Preliminary
No Growth in 48 hours- Final report to follow
10/30/23 06:21 Sputum Respiratory Culture - Preliminary
Usual Respiratory Manjula
10/30/23 06:21 Sputum Gram Stain - Preliminary
10/29/23 15:23 Urine Legionella Urinary Antigen - Final
Negative for Legionella pneumophila Serogroup 1 antigen.
A negative result does not rule out the possiblity of
Legionella infection due to other serogroups or species of
Legionella. Clinical correlation is recommended.
10/29/23 15:23 Urine Streptococcus pneumoniae Antigen (M - Final
Negative for Streptococcus pneumoniae antigen.
A negative result does not exclude infection with
Streptococcus pneumoniae. Clinical correlation is
recommended.
10/29/23 15:23 Nasal Swab Influenza Types A & B (DUNIA) - Final
Negative for Influenza A & B, NAAT
Negative results must be combined with clinical observations
and patient history.
Nucleic Acid Amplification test (NAAT)performed on the
[employer] platform.
[2023-10-31 15:28] VITALS: BP 107/59
[2023-10-31] MEDS: ROCEPHIN 1000 MG IV (20:00)
[2023-10-31] MEDS: STERILE WATER FOR INJECTION 10 ML IV (20:01)
[2023-10-31 20:43] VITALS: BP 124/66
[2023-10-31 23:36] VITALS: BP 122/76
[2023-11-01 04:00] VITALS: BP 117/76
[2023-11-01 05:17] VITALS: BMI 24.3
[2023-11-01] MEDS: DECADRON 4 MG IV ×3 (05:35→20:42)
[2023-11-01 07:00] VITALS: BP 127/75
[2023-11-01 07:14] LABS: Blood Urea Nitrogen 20 mg/dl (9-20); Calcium 8.8 mg/dl (8.4-10.2); Carbon Dioxide 30 mmol/L (22-30); Chloride 89 mmol/L (98-107); Estimated Creatinine Clearance 119 ml/min; Glucose 172 mg/dl (70-99); Potassium 4.1 mmol/L (3.5-5.1); Sodium 128 mmol/L (135-145); eGFR > 60.00
[2023-11-01] MEDS: PULMICORT 0.5 MG INH ×2 (07:24→20:00)
[2023-11-01] MEDS: DUONEB 3 ML INH ×4 (07:25→20:00)
[2023-11-01] MEDS: PROTONIX 40 MG PO ×2 (07:41→20:49)
[2023-11-01] MEDS: FLOMAX 0.400000000000000022 MG PO ×2 (07:41→20:49)
[2023-11-01] MEDS: DIOVAN 320 MG PO (07:41)
[2023-11-01] MEDS: ZITHROMAX 500 MG PO (07:41)
[2023-11-01] MEDS: LASIX 20 MG PO (07:42)
[2023-11-01] MEDS: NORVASC 10 MG PO (07:42)
[2023-11-01 11:00] VITALS: BP 131/72
--- NOTE | 2023-11-01 11:21 | W.PN.HOSP.TC ---
Today's Communication/Plan
-
Wean steroids per pulmonary
Home O2 eval
DC planning
Assessment / Plan
Assessment / Plan
Acute Hypoxic Respiratory Insufficiency secondary to Pneumonia and Acute COPD Exacerbation
-Continue supplemental oxygen via nasal cannula -currently on 1 L
-wean as able
- Home O2 evaluation today
Severe Sepsis secondary to Pneumonia
-neg COVID and Influenza
-neg strep and legionella antigen
-Negative blood culture
-Continue ceftriaxone and azithromycin. Finished a course of 7 days of cephalosporin and 5 days of Zithromax. Follow-up chest x-ray for right lung pneumonia.
Acute COPD Exacerbation
-Continue Decadron per pulm
-Continue DuoNeb QID and PRN
-Continue Pulmicort Neb
- Pulm following
Elevated Troponin, suspect Non-Ischemic Myocardial Injury due to hypoxia
- Continue to trend troponin
- Echo noted
Hyponatremia, unclear volume status
- Nephrology following
-Serum osmo, urine osmo and urine sodium noted
-cw FR and lasix
-Improving sodium
Paroxysmal Atrial Fibrillation s/p Ablation Jun 2015
Essential Hypertension
-Continue amlodipine and valsartan
Polycythemia Vera
-Hgb stable
Tejada's Esophagus
-Continue Protonix
Prostate Cancer s/p Radiation Seeds
-Continue Flomax
DVT proph: Lovenox
Code Status: Full Code
If ok from pulm stadndpiont will start DC plan
Anticipated Discharge: Today
Subjective/Interval History
-
Date of Service: November 01, 2023
Feeling improved
denies shortness of breath at rest.
No fever or chills.
No nausea vomiting.
No chest pains.
Objective Data
-
Labs:
Laboratory Results
11/01/23
06:13
Sodium 128 L
Potassium 4.1
Chloride 89 L
Carbon Dioxide 30
BUN 20
Creatinine 0.4 L
Glucose 172 H
Calcium 8.8
Vital Signs:
Vital Signs
Temp Pulse Resp BP Pulse Ox
97.5 F 83 18 127/75 95
11/01/23 04:00 11/01/23 07:42 11/01/23 07:29 11/01/23 07:42 11/01/23 07:29
I&O
10/31/23 11/01/23 11/02/23
06:59 06:59 06:59
Intake Total 1355 / 1355 1380 / 1380
Balance 1355 / 1355 1380 / 1380
Review of Systems
-
EENT: Denies Sore Throat
Abdomen/GI: Denies Nausea or Vomiting
Neuro: Denies Dizzy
Physical Exam
-
General: No Apparent Distress
HEENT: Moist Mucous Membranes
Respiratory: Clear to Auscultation
Cardiac: S1/S2
GI: Soft
Neuro: AO x 3
Psych: Calm; Negative Confused
Data Reviewed
-
Labs: Labs Reviewed by me
--- NOTE | 2023-11-01 12:32 | W.PN.PUL3 ---
Today's Communication / Plan
-
Continue to wean steroids
He will require slow taper at time of discharge, 10 mg every 5 days till off
Continue with ambulation, encourage activity, airway clearance
He will require follow-up chest x-ray in 4 to 6 weeks
He is due for follow-up CT imaging thereafter
Assessment
-
73-year-old man with history of COPD-severe, atrial fibrillation, former smoker who is here for progressive shortness of breath. Sent to the emergency room from the pulmonary office as he was found also to be hypoxemic with increased work of
breathing.
Acute exacerbation of COPD/hypoxemic respiratory insufficiency
Chest x-ray 10/29/2023: Possible small right midlung opacity which could represent pneumonia.
Pneumonia
Leukocytosis
Hyponatremia - improving
Mildly increased troponin - peaked at 0.05 on 10/29/2023: Increased proBNP. Cannot rule out cardiac etiology for symptoms as well.
EKG: Sinus tachycardia with premature ventricular complexes. Left atrial enlargement. Incomplete right bundle branch block. Nonspecific T T wave abnormality
Conditions present prior admission:
Hypertension
Prostate cancer status post radiation therapy
Premature ventricular contraction
Atrial fibrillation/atrial flutter status post ablation June 2015
History of multiple concussions
Hypercholesterolemia
History of gout
Polycythemia vera
Obstructive sleep apnea-gained about 30 pounds in the last 2 years.-Not on CPAP.
Peripheral eosinophilia
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
FEV1 0.82 L or 25% of predicted. Diffusion capacity 36%.
On Trelegy
Cardiomyopathy-35% ejection fraction.-LVEF recovered on echocardiogram 06/09/2022.
Esophageal cancer
Former smoker quit in 2018
History of waxing waning lung nodules last CT scan 08/06/2023

Plan and recommendations:
At this time, patient appears to be objectively and subjectively improved
Chest exam with minimal wheezing
Air exchange adequate, bronchial breath sounds
Ambulatory saturation 86% earlier today
Patient presently on room air
Moving forward
I do feel he is slowly going in the right direction.
He admits to sick contact prior to symptom onset. at bedside to corroborate
Chest x-ray suggest patchy infiltrate, difficult to differentiate between infectious process, inflammatory process or mucous plugging
Patient with very little pulmonary reserve
Continue with IV prednisone, will transition to oral prednisone in the a.m. Okay to decrease to every 8 hours
Remains on ceftriaxone/azithromycin.
Consider transition to oral regimen
Patient has been doing well without flareups prior
We have been considering chronic macrolide therapy as outpatient but this will be deferred to outpatient setting decision
Severe COPD with FEV1 25%
Continue oxygen supplementation to maintain pulse ox above 90%.
Currently on 2L ( usually not on supplemental oxygen) - had walking O2 study today and he requires 2L/min with activity
Prior walk test 2021 89%. Patient had refused oxygen therapy in the past
Suspect he is close to his baseline
Nebulizer with DuoNebs QID with pulmicort 0.5mg BID
Patient will need radiographic follow-up in the outpatient setting.
Last CT chest from 08/06/2023 without any abnormality in the left lower lobe. He does have history of waxing waning pulmonary nodules.
Would recommend short-term follow-up chest x-ray. Patient is due for follow-up CT chest in February 2024
No need to continue trending troponin given it peaked at 0.05 on 10/29/2023 - currently chest pain-free.
Increased proBNP: May be in the setting of hypoxemia and RV dysfunction/underlying severe lung disease. Chest x-ray does not suggest pulmonary edema.
Echocardiogram ordered with LVEF 50-55% with RV pressure overload with mild pHTN (PASP: 39mmHg assuming RAP: 8)
Last echocardiogram showed normal LVEF of 65%. Mild MR. Normal biventricular size with pulmonary hypertension.
DVT prophylaxis: Enoxaparin
GI prophylaxis: Pantoprazole
Outpatient pulmonary follow-up with Dr. Traylor after discharge.
Hope for disposition in the next 24 hours
Subjective Data
-
Date of Service:
Date of Service: November 01, 2023
Chief Complaint: Pulmonary Follow Up
Subjective:
Patient is slowly improving. He states he ambulated earlier today, went down to 86%. Has mild productive cough, no chest pain, nausea, abdominal pain. Denies lightheadedness. Denied symptoms with saturation of 86%
Objective Data
Data Reviewed
Vital Signs / I&O / Oxygen:
Vital Signs
Temp Pulse Resp BP Pulse Ox
97.5 F 85 15 131/72 94
11/01/23 04:00 11/01/23 11:33 11/01/23 11:33 11/01/23 11:00 11/01/23 11:33
Intake and Output
10/31/23 11/01/23 11/02/23
06:59 06:59 06:59
Intake Total 1355 / 1355 1380 / 1380
Balance 1355 / 1355 1380 / 1380
SaO2 94
Nasal Cannula flow liters per 7
minute
Physical Exam
General: Comfortable
HEENT: Normocephalic and Anicteric
Cardiovascular: S1-S2, Regular Rhythm, Murmur (n), Rub (n) and Peripheral Edema (Negative)
Respiratory: Wheeze (Mild end expiratory), Crackles (Negative), Rhonchi (n), Non-Labored Respirations, Stridor (n) and Other (Bronchial breath sounds in the right posterior hemithorax)
GI: Soft, Non Distended and Non Tender
Neurology: Awake, Alert and No Motor Deficits (Able to sit up without assistance)
Skin: Cyanosis (Negative), Jaundice (n), Rash (n) and Other (Venous insufficiency lower extremities)
Labs/Micro/Reports
Lab Data
10/31/23 08:35
11/01/23 06:13
Microbiology
10/30/23 06:21 Sputum Respiratory Culture - Final
Usual Respiratory Manjula
10/30/23 06:21 Sputum Gram Stain - Final
10/29/23 15:23 Blood/Venous Blood Culture - Preliminary
No Growth in 48 hours- Final report to follow
10/29/23 12:37 Blood/Venous Blood Culture - Preliminary
No Growth in 48 hours- Final report to follow
10/29/23 15:23 Urine Legionella Urinary Antigen - Final
Negative for Legionella pneumophila Serogroup 1 antigen.
A negative result does not rule out the possiblity of
Legionella infection due to other serogroups or species of
Legionella. Clinical correlation is recommended.
10/29/23 15:23 Urine Streptococcus pneumoniae Antigen (M - Final
Negative for Streptococcus pneumoniae antigen.
A negative result does not exclude infection with
Streptococcus pneumoniae. Clinical correlation is
recommended.
10/29/23 15:23 Nasal Swab Influenza Types A & B (DUNIA) - Final
Negative for Influenza A & B, NAAT
Negative results must be combined with clinical observations
and patient history.
Nucleic Acid Amplification test (NAAT)performed on the
[employer] platform.
[2023-11-01] MEDS: FLUSH (NSS) 2 FLUSH IV ×2 (12:45→20:51)
--- NOTE | 2023-11-01 14:05 | W.PN.NEPH.PH ---
Today's Communication / Plan
-
cont po lasix
Assessment/Plan
-
IMP:
Acute Hypoxic Respiratory Insufficiency secondary to Pneumonia and Acute COPD Exacerbation
Severe Sepsis secondary to Pneumonia
Acute COPD Exacerbation
Elevated Troponin, suspect Non-Ischemic Myocardial Injury due to hypxa
Hyponatremia
Paroxysmal Atrial Fibrillation s/p Ablation Jun 2015
Essential Hypertension
Polycythemia Vera-phlebotomy with hematology
Tejada's Esophagus
Prostate Cancer s/p Radiation Seeds
PLan:
Hypoantremia-sodium stable at 128
he dose not want samsca, so cont lasix 20mg po daily
echo noted RV overload
weaning IV steroids per pulm
follow BMP
d/c plan
f/u with PCP at d/c, BMP in week
FR 48 ounces/day
-
-
Date of Service: November 01, 2023
CC / HPI / ROS
-
Chief Complaint:
hyponatremia
History of Present Illness:
Na stable at 128
BP stable
off O2 today
Review of Systems:
no CP/SOB
cough improving
Labs
-
Labs:
WBC 12.1 10^3/uL (4.8-10.8) H 10/31/23 08:35
RBC 4.44 10^6/uL (4.70-6.10) L 10/31/23 08:35
Hgb 14.3 g/dL (13.0-18.0) 10/31/23 08:35
Hct 39.9 % (39.0-52.0) 10/31/23 08:35
Plt Count 261 10^3/uL (130-400) 10/31/23 08:35
Sodium 128 mmol/L (135-145) L 11/01/23 06:13
Potassium 4.1 mmol/L (3.5-5.1) 11/01/23 06:13
Chloride 89 mmol/L (98-107) L 11/01/23 06:13
Carbon Dioxide 30 mmol/L (22-30) 11/01/23 06:13
BUN 20 mg/dl (9-20) 11/01/23 06:13
Creatinine 0.4 mg/dL (0.7-1.3) L 11/01/23 06:13
eGFR > 60.00 11/01/23 06:13
Glucose 172 mg/dl (70-99) H 11/01/23 06:13
Calcium 8.8 mg/dl (8.4-10.2) 11/01/23 06:13
Qhs-N-Tqcsfakykxu Pept 3510 pg/ml 10/29/23 12:37
Albumin 3.7 g/dl (3.5-5.0) 10/29/23 12:37
Physical Exam
-
Vital Signs:
Vital Signs
Temp Pulse Resp BP Pulse Ox
97.8 F 85 15 131/72 92
11/01/23 13:47 11/01/23 11:33 11/01/23 11:33 11/01/23 11:00 11/01/23 13:47
Cardiovascular:: Regular rate and rhythm
Respiratory:: Bilateral: Wheeze (mild exp )
Lung Excursion:: Normal
Abdomen:: Nontender and Soft
Extremity Edema:: None: Bilateral:
Chen Catheter: No
[2023-11-01 15:00] VITALS: BP 160/85
[2023-11-01 16:48] VITALS: BP 116/92; PULSE 92; O2SAT 92
[2023-11-01] MEDS: ROCEPHIN 1000 MG IV (20:42)
[2023-11-01] MEDS: STERILE WATER FOR INJECTION 10 ML IV (20:42)
[2023-11-01 22:29] VITALS: BP 120/73
[2023-11-02 02:49] VITALS: BMI 24.3
[2023-11-02] MEDS: DECADRON 4 MG IV (04:09)
[2023-11-02] MEDS: FLUSH (NSS) 2 FLUSH IV (04:10)
[2023-11-02] MEDS: DUONEB 3 ML INH (07:09)
[2023-11-02] MEDS: PULMICORT 0.5 MG INH (07:09)
[2023-11-02 08:02] VITALS: BP 117/71
[2023-11-02 08:07] LABS: Blood Urea Nitrogen 19 mg/dl (9-20); Calcium 9.4 mg/dl (8.4-10.2); Carbon Dioxide 32 mmol/L (22-30); Chloride 87 mmol/L (98-107); Estimated Creatinine Clearance 119 ml/min; Glucose 140 mg/dl (70-99); Potassium 4.4 mmol/L (3.5-5.1); Sodium 129 mmol/L (135-145); eGFR > 60.00
[2023-11-02] MEDS: ZITHROMAX 500 MG PO (08:13)
[2023-11-02] MEDS: DIOVAN 320 MG PO (08:13)
[2023-11-02] MEDS: PROTONIX 40 MG PO (08:14)
[2023-11-02] MEDS: FLOMAX 0.400000000000000022 MG PO (08:14)
[2023-11-02] MEDS: NORVASC PO (08:15)
[2023-11-02] MEDS: LASIX 20 MG PO (08:15)
--- NOTE | 2023-11-02 09:56 | W.PN.PUL3 ---
Today's Communication / Plan
-
Okay to discharge on prednisone 40 mg to start 11/02
Taper by 10 mg every 7 days
GERD therapy will continue
Also plan to discharge on Zithromax 250 mg a day for 2 weeks
Discharged with home oxygen, 2 L with activity. Portable concentrator requested
Requires repeat chest x-ray in 6 weeks with pulmonary follow-up
Pulmonary information follow-up left in chart
Assessment
-
73-year-old man with history of COPD-severe, atrial fibrillation, former smoker who is here for progressive shortness of breath. Sent to the emergency room from the pulmonary office as he was found also to be hypoxemic with increased work of
breathing.
Acute exacerbation of COPD/hypoxemic respiratory insufficiency
Chest x-ray 10/29/2023: Possible small right midlung opacity which could represent pneumonia.
Pneumonia
Leukocytosis
Hyponatremia - improving
Mildly increased troponin - peaked at 0.05 on 10/29/2023: Increased proBNP. Cannot rule out cardiac etiology for symptoms as well.
EKG: Sinus tachycardia with premature ventricular complexes. Left atrial enlargement. Incomplete right bundle branch block. Nonspecific T T wave abnormality
Conditions present prior admission:
Hypertension
Prostate cancer status post radiation therapy
Premature ventricular contraction
Atrial fibrillation/atrial flutter status post ablation June 2015
History of multiple concussions
Hypercholesterolemia
History of gout
Polycythemia vera
Obstructive sleep apnea-gained about 30 pounds in the last 2 years.-Not on CPAP.
Peripheral eosinophilia
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
FEV1 0.82 L or 25% of predicted. Diffusion capacity 36%.
On Trelegy
Cardiomyopathy-35% ejection fraction.-LVEF recovered on echocardiogram 06/09/2022.
Esophageal cancer
Former smoker quit in 2018
History of waxing waning lung nodules last CT scan 08/06/2023

Plan and recommendations:
At this time, patient appears to be objectively and subjectively improved
Chest exam with minimal wheeze, decreased breath sounds
Air exchange adequate, bronchial breath sounds
Ambulatory saturation 86% on room air following 140 feet, improved with 2 L
Patient does not have oxygen therapy at home
Moving forward
I do feel he is slowly going in the right direction.
He admits to sick contact prior to symptom onset. at bedside to corroborate
Chest x-ray suggest patchy infiltrate, difficult to differentiate between infectious process, inflammatory process or mucous plugging
Patient with very little pulmonary reserve
Transition to prednisone. Discharged on 40 mg a day. Would taper by 10 mg every 7 days (slow taper)
GERD therapy while on steroids
Remains on ceftriaxone/azithromycin.
Consider transition to oral regimen
Patient has been doing well without flareups prior
We have been considering chronic macrolide therapy as outpatient but this will be deferred to outpatient setting decision
Severe COPD with FEV1 25%
Continue oxygen supplementation to maintain pulse ox above 90%.
Currently on 2L ( usually not on supplemental oxygen) - had walking O2 study 10/31 and he requires 2L/min with activity
Case management consulted, request portable concentrator to be set up, 2 L with activity based on walk test yesterday
Nebulizer with DuoNebs QID with pulmicort 0.5mg BID
This will continue as outpatient
Patient will need radiographic follow-up in the outpatient setting.
Last CT chest from 08/06/2023 without any abnormality in the left lower lobe. He does have history of waxing waning pulmonary nodules.
Would recommend short-term follow-up chest x-ray, 6 weeks. Patient is due for follow-up CT chest in February 2024
No need to continue trending troponin given it peaked at 0.05 on 10/29/2023 - currently chest pain-free.
Increased proBNP: May be in the setting of hypoxemia and RV dysfunction/underlying severe lung disease. Chest x-ray does not suggest pulmonary edema.
Echocardiogram ordered with LVEF 50-55% with RV pressure overload with mild pHTN (PASP: 39mmHg assuming RAP: 8)
Last echocardiogram showed normal LVEF of 65%. Mild MR. Normal biventricular size with pulmonary hypertension.
Our office will set up pulmonary rehabilitation
DVT prophylaxis: Enoxaparin
GI prophylaxis: Pantoprazole
Outpatient pulmonary follow-up with Dr. Traylor after discharge.
Disposition efforts
Subjective Data
-
Date of Service:
Date of Service: November 02, 2023
Chief Complaint: Pulmonary Follow Up
Subjective:
Patient continues to slowly improve. Denies chest pain. Has dry cough. Denies hemoptysis, lightheadedness, dizziness, nausea. Ambulating, oxygen goes down to 86% improved with 2 L
Objective Data
Data Reviewed
Vital Signs / I&O / Oxygen:
Vital Signs
Temp Pulse Resp BP Pulse Ox
97.4 F 76 18 117/71 95
11/02/23 08:02 11/02/23 08:15 11/02/23 08:02 11/02/23 08:15 11/02/23 08:02
Intake and Output
11/01/23 11/02/23 11/03/23
06:59 06:59 06:59
Intake Total 1380 / 1380 1440 / 1440
Balance 1380 / 1380 1440 / 1440
SaO2 95
Nasal Cannula flow liters per 1
minute
Physical Exam
General: Comfortable
HEENT: Normocephalic and Anicteric
Cardiovascular: S1-S2, Regular Rhythm, Murmur (n), Rub (n) and Peripheral Edema (Negative)
Respiratory: Wheeze (Mild end expiratory), Crackles (Negative), Rhonchi (n), Non-Labored Respirations, Stridor (n) and Other (Bronchial breath sounds in the right posterior hemithorax)
GI: Soft, Non Distended and Non Tender
Neurology: Awake, Alert and No Motor Deficits (Able to sit up without assistance)
Skin: Cyanosis (Negative), Jaundice (n), Rash (n) and Other (Venous insufficiency lower extremities)
Labs/Micro/Reports
Lab Data
10/31/23 08:35
11/02/23 07:00
Microbiology
10/29/23 15:23 Blood/Venous Blood Culture - Preliminary
No Growth in 72 hours- Final report to follow
10/29/23 12:37 Blood/Venous Blood Culture - Preliminary
No Growth in 72 hours- Final report to follow
10/30/23 06:21 Sputum Respiratory Culture - Final
Usual Respiratory Manjula
10/30/23 06:21 Sputum Gram Stain - Final
--- NOTE | 2023-11-02 10:43 | W.PN.NEPH.PH ---
Today's Communication / Plan
-
ok for d/c
Assessment/Plan
-
IMP:
Acute Hypoxic Respiratory Insufficiency secondary to Pneumonia and Acute COPD Exacerbation
Severe Sepsis secondary to Pneumonia
Acute COPD Exacerbation
Elevated Troponin, suspect Non-Ischemic Myocardial Injury due to hypxa
Hyponatremia
Paroxysmal Atrial Fibrillation s/p Ablation Jun 2015
Essential Hypertension
Polycythemia Vera-phlebotomy with hematology
Tejada's Esophagus
Prostate Cancer s/p Radiation Seeds
PLan:
Hypoantremia-sodium better at 129
cont lasix 20mg po daily
echo noted RV overload
weaning steroids per pulm
d/c plan
f/u with PCP at d/c, BMP in week
FR 48 ounces/day
-
-
Date of Service: November 02, 2023
CC / HPI / ROS
-
Chief Complaint:
hyponatremia
History of Present Illness:
Na better at 129, k normal
BP stable
off O2
Review of Systems:
no CP/SOB
feels well
Labs
-
Labs:
WBC 12.1 10^3/uL (4.8-10.8) H 10/31/23 08:35
RBC 4.44 10^6/uL (4.70-6.10) L 10/31/23 08:35
Hgb 14.3 g/dL (13.0-18.0) 10/31/23 08:35
Hct 39.9 % (39.0-52.0) 10/31/23 08:35
Plt Count 261 10^3/uL (130-400) 10/31/23 08:35
Sodium 129 mmol/L (135-145) L 11/02/23 07:00
Potassium 4.4 mmol/L (3.5-5.1) 11/02/23 07:00
Chloride 87 mmol/L (98-107) L 11/02/23 07:00
Carbon Dioxide 32 mmol/L (22-30) H 11/02/23 07:00
BUN 19 mg/dl (9-20) 11/02/23 07:00
Creatinine 0.4 mg/dL (0.7-1.3) L 11/02/23 07:00
eGFR > 60.00 11/02/23 07:00
Glucose 140 mg/dl (70-99) H 11/02/23 07:00
Calcium 9.4 mg/dl (8.4-10.2) 11/02/23 07:00
Zum-R-Yshvqqkxpjx Pept 3510 pg/ml 10/29/23 12:37
Albumin 3.7 g/dl (3.5-5.0) 10/29/23 12:37
Physical Exam
-
Vital Signs:
Vital Signs
Temp Pulse Resp BP Pulse Ox
97.4 F 76 18 117/71 95
11/02/23 08:02 11/02/23 08:15 11/02/23 08:02 11/02/23 08:15 11/02/23 08:02
Cardiovascular:: Regular rate and rhythm
Respiratory:: Bilateral: CTA (decreased)
Lung Excursion:: Normal
Abdomen:: Nontender and Soft
Extremity Edema:: None: Bilateral:
Chen Catheter: No
--- NOTE | 2023-11-02 11:34 | W.PN.HOSP.TC ---
Today's Communication/Plan
-
dc
Assessment / Plan
Assessment / Plan
Acute Hypoxic Respiratory Insufficiency secondary to Pneumonia and Acute COPD Exacerbation
-Continue supplemental oxygen via nasal cannula -currently on 1 L
-wean as able
- Home O2 evaluation shows he needs O2 with exertion which is now arranged.
Severe Sepsis secondary to Pneumonia
-neg COVID and Influenza
-neg strep and legionella antigen
-Negative blood culture
-Continue ceftriaxone and azithromycin. Finished a course of 7 days of cephalosporin and cw Zithromax per pulm. Follow-up chest x-ray for right lung pneumonia.
Acute COPD Exacerbation
-Continue Decadron per pulm- switched to po pred and slow weekly taper per pulm
-Continue DuoNeb QID and PRN
-Continue Pulmicort Neb
- Pulm following
Elevated Troponin, suspect Non-Ischemic Myocardial Injury due to hypoxia
- Continue to trend troponin
- Echo noted
Hyponatremia, unclear volume status
- Nephrology following
-Serum osmo, urine osmo and urine sodium noted
-cw FR and lasix
-Improving sodium
- Nephro input noted
- Follow up BMP in one week
Paroxysmal Atrial Fibrillation s/p Ablation Jun 2015
Essential Hypertension
-Continue amlodipine and valsartan
Polycythemia Vera
-Hgb stable
Tejada's Esophagus
-Continue Protonix
Prostate Cancer s/p Radiation Seeds
-Continue Flomax
DVT proph: Lovenox
Code Status: Full Code
Medically stable for discharge
Discussed with pulmonary today regarding the plan.
More than 30 minutes spent in discharge including
Final examination of the patient
Summarizing hospital stay
Instructions for continuing care to all relevant caregivers
Preparation of discharge records, prescriptions, and referral forms
Total time spent (in minutes): 35
Anticipated Discharge: Today
Subjective/Interval History
-
Date of Service: November 02, 2023
Patient improved. Breathing is improved. Not much of cough. No chest pain. No fever or chills. No nausea vomiting.
Objective Data
-
Labs:
Laboratory Results
11/02/23
07:00
Sodium 129 L
Potassium 4.4
Chloride 87 L
Carbon Dioxide 32 H
BUN 19
Creatinine 0.4 L
Glucose 140 H
Calcium 9.4
Vital Signs:
Vital Signs
Temp Pulse Resp BP Pulse Ox
97.4 F 76 18 117/71 95
11/02/23 08:02 11/02/23 08:15 11/02/23 08:02 11/02/23 08:15 11/02/23 08:02
I&O
11/01/23 11/02/23 11/03/23
06:59 06:59 06:59
Intake Total 1380 / 1380 1440 / 1440
Balance 1380 / 1380 1440 / 1440
Review of Systems
-
EENT: Denies Sore Throat
Abdomen/GI: Denies Abdominal Pain
Neuro: Denies Dizzy
Physical Exam
-
General: No Apparent Distress
HEENT: Moist Mucous Membranes
Respiratory: Clear to Auscultation; Negative Wheezes or Crackles
Cardiac: Regular Rhythm and S1/S2
Neuro: AO x 3
Data Reviewed
-
Labs: Labs Reviewed by me
[2023-11-02] MEDS: DUONEB INH (11:43)
--- NOTE | 2023-11-02 11:44 | W.DS.TRANS ---
DC Summary - [employer]
-
Discharge Instructions:
Sleep Apnea Risk Intermediate
Discharge Diagnosis/Procedures Right lung pneumonia, COPD exacerbation, acute
hypoxic respiratory insufficiency secondary to
above, hyponatremia
Diet Regular
Activity As tolerated
Driving Restrictions As prior to admission
Bathing Restrictions None
Blood Work BMP in one week -arrange through your PCP
Instructions:
Stand-Alone Forms:
Changes to Home Medications: Yes
Discharge Medications:
DC Medications w/original date entered in [facility]
tamsulosin 0.4 mg capsule (Flomax) 0.4 mg PO BID Urinary Issue 06/15/14
amlodipine 2.5 mg tablet 10 mg PO DAILY Blood Pressure 09/11/16
multivitamin 1 ea PO DAILY Supplement 12/16/18
fluticasone fur. 200 mcg-umeclid 62.5 mcg-vilant 25 mcg inhalat.powder (Trelegy Ellipta) 1 inh inhalation DAILY Lung/Breathing Issues 08/07/22
albuterol sulfate 90 mcg/actuation aerosol inhaler (ProAir HFA) 2 puff inhalation Q4H PRN sob 11/03/22
omeprazole 40 mg capsule,delayed release 40 mg PO BID GERD 10/29/23
valsartan 320 mg tablet (Diovan) 320 mg PO DAILY Blood Pressure 10/29/23
azithromycin 250 mg tablet 500 mg (2 x 250 mg) PO DAILY #14 tabs 11/02/23
budesonide 0.5 mg/2 mL suspension for nebulization 0.5 mg (2 mL) inhalation R BID #60 mL 11/02/23
cefuroxime axetil 500 mg tablet 500 mg PO BID #6 tabs 11/02/23
furosemide 20 mg tablet 20 mg PO DAILY #15 tabs 11/02/23
ipratropium 0.5 mg-albuterol 3 mg (2.5 mg base)/3 mL nebulization soln 3 ml inhalation R Q4HPRN PRN shortness of breath/wheeze #90 mL 11/02/23
prednisone 10 mg tablet 10 mg PO DIRECTED #72 tabs 11/02/23
Home Medication Changes
Medication-prednisone taper, DuoNeb as needed, Lasix, cefuroxime, budesonide nebulizer, Zithromax
Pending Results: No
--- NOTE | 2023-11-02 12:44 | CM ---
Received consult for o2, spoke with Seb from [employer] who confirmed that she could see patient today. Faxed over all necessary paperwork. Seb met with patient.
Plan: Case management will continue to follow and assist with discharge planning. Home with o2.
--- NOTE | 2023-11-02 15:57 | W.DCSUMMARY ---
Discharge Summary
Discharge Data
Date of Admission: 10/29/23
Date of Discharge: 11/02/23
-
Pending Results: No
Hospital Course
primary diagnosis:
Severe Sepsis secondary to Pneumonia
Acute Hypoxic Respiratory Insufficiency secondary to Pneumonia and Acute Chronic obstructive pulmonary Exacerbation
Hyponatremia
Secondary diagnosis:
Paroxysmal atrial fibrillation status post ablation in June 2015
Essential hypertension
Polycythemia vera
History of prostate cancer
History of Tejada's esophagus
Hospital course:
Patient presented with shortness of breath and discovered to be in acute hypoxic respiratory insufficiency. He was also discovered to have right lung pneumonia causing a superimposed COPD exacerbation. Pneumonia but not bacteremic. He responded
well to empirical ceftriaxone , Zithromax, and steroids. He was seen by pulmonary. He is known to have history of COPD with FEV1 1.82 L or 28% predicted. Diffusion capacity 36%. Pulmonary recommended slow steroid wean due to limited pulmonary
reserve. He was advised to continue Zithromax Z-FEDE for 2 weeks for pneumonia and the COPD flare. Advised to repeat a chest x-ray in 6 weeks to follow-up on the right mid lung opacity presumed pneumonia.
He also had a euvolemic hyponatremia probably related to his lung process. Was seen by financial institution manager. Was put on fluid restriction and on Lasix. He declined Samsca. Sodium came up to 129 on discharge. Advised to get a repeat BMP next week and
see the need of Lasix and fluid restriction depending on that sodium level.
Consultants on board:
Pulmonary-Dr. Traylor
Nephrology-Dr. Myers
Discharge Plan
-
Patient Disposition: Home (Routine Discharge)
Discharge Diagnosis/Procedures: Right lung pneumonia, COPD exacerbation, acute hypoxic respiratory insufficiency secondary to above, hyponatremia
Diet: Regular
Activity: As tolerated
Driving Restrictions: As prior to admission
Bathing Restrictions: None
Blood Work: BMP in one week -arrange through your PCP
Referrals:
Maico Traylor MD [Active] -
(CXR in 6 weeks
[place] visit in 6 weeks)
Vivek Phillip DO [Family Provider] - in less than 1 week
Prescriptions:
New
prednisone 10 mg tablet
10 mg PO DIRECTED Qty: 72 0RF
Rx Instructions:
40mg daily for a week and then taper by 10mg weekly.
furosemide 20 mg Tablet
20 mg PO DAILY Qty: 15 0RF
Rx Instructions:
re evaluate need of it after next blood test
cefuroxime axetil 500 mg tablet
500 mg PO BID Qty: 6 0RF
ipratropium-albuterol 0.5 mg-3 mg(2.5 mg base)/3 mL Solution For Nebulization
3 ml inhalation R Q4HPRN PRN (Reason: shortness of breath/wheeze) Qty: 90 1RF
azithromycin 250 mg Tablet
500 mg PO DAILY Qty: 14 0RF
budesonide 0.5 mg/2 mL Suspension For Nebulization
0.5 mg inhalation R BID Qty: 60 1RF
Continued
tamsulosin [Flomax] 0.4 MG capsule
0.4 mg PO BID
amlodipine 2.5 MG tablet
10 mg PO DAILY
multivitamin 1 EACH tablet
1 ea PO DAILY
Trelegy Ellipta 200-62.5-25 mcg Blister With Device
1 inh INHALATION DAILY
albuterol sulfate [ProAir HFA] 90 mcg/actuation Hfa Aerosol Inhaler
2 puff INHALATION Q4H PRN (Reason: sob)
Patient Comments:
Started two days ago (as of 10/29/23)
omeprazole 40 mg Capsule,Delayed Release(Dr/Ec)
40 mg PO BID
valsartan [Diovan] 320 MG tablet
320 mg PO DAILY
Discharge Orders:
Discharge Patient (As Directed); Ordered 04/30/24
Ordered By: Samson Damico
Discharge Date and Time
Discharge Date/Time: 11/02/23 12:29
Print Language: PALAUAN
== END 2023-11-02 12:29 | disposition home or self-care (01) | DRG 871 ==
LOC: 3 WEST ACU 15:51
PROVIDERS: Internal Medicine; Physician Assistant Medical; ADMITTING PHYSICIAN Internal Medicine; ATTENDING PHYSICIAN Internal Medicine; CONSULT PHYSICIAN Internal Medicine Critical Care Medicine; CONSULT PHYSICIAN Specialist; EMERGENCY PHYSICIAN Emergency Medicine; FAMILY PHYSICIAN Family Medicine
DX: A41.9 Sepsis, unspecified organism (principal); J18.9 Pneumonia, unspecified organism; J44.0 Chronic obstructive pulmonary disease with (acute) lower respiratory infection; J44.1 Chronic obstructive pulmonary disease with (acute) exacerbation; E87.1 Hypo-osmolality and hyponatremia; I5A Non-ischemic myocardial injury (non-traumatic); I10 Essential (primary) hypertension; I48.0 Paroxysmal atrial fibrillation; K22.70 Barrett's esophagus without dysplasia; Z85.46 Personal history of malignant neoplasm of prostate
CPT/HCPCS: 71046; 80048; 80053; 82533; 83605; 83735; 83880; 83930; 83935; 84145; 84300; 84443; 84484; 85025; 85027; 87040; 87070; 87205; 87449; 87502; 87811; 87899; 93005; 93306; 94640; 96365; 96366; 96375; 97116; 97162; 97166; 99285

== ENCOUNTER → 2023-12-02 07:37 | Outpatient (REF) | payer OTHER, SELFPAY | LOC: HWRAD 07:37 | PROVIDERS: ATTENDING PHYSICIAN Internal Medicine Critical Care Medicine; FAMILY PHYSICIAN Family Medicine | DX: R09.02 Hypoxemia (principal); J44.9 Chronic obstructive pulmonary disease, unspecified; J43.1 Panlobular emphysema; C80.1 Malignant (primary) neoplasm, unspecified | CPT/HCPCS: 71046 ==

== ENCOUNTER → 2024-02-11 07:12 | Outpatient (REF) | payer OTHER, SELFPAY | LOC: HWRAD 07:12 | PROVIDERS: ATTENDING PHYSICIAN Internal Medicine Critical Care Medicine; FAMILY PHYSICIAN Family Medicine | DX: R91.1 Solitary pulmonary nodule (principal) | CPT/HCPCS: 71250 ==

== ENCOUNTER → 2024-02-11 08:52 | Outpatient (REF) | payer OTHER, SELFPAY | LOC: HWRCS 08:52 | PROVIDERS: ATTENDING PHYSICIAN Internal Medicine Critical Care Medicine; FAMILY PHYSICIAN Family Medicine | DX: I42.9 Cardiomyopathy, unspecified (principal) | CPT/HCPCS: 93306 ==

== ENCOUNTER 2024-03-02 08:15 | Outpatient (RCR) | payer OTHER, SELFPAY | END 2024-03-03 08:59 | disposition home or self-care (01) | LOC: PURB 08:15 | PROVIDERS: ATTENDING PHYSICIAN Internal Medicine Critical Care Medicine; FAMILY PHYSICIAN Family Medicine | DX: J44.9 Chronic obstructive pulmonary disease, unspecified (principal); G47.33 Obstructive sleep apnea (adult) (pediatric) | CPT/HCPCS: 94625; G0237 ==

== ENCOUNTER → 2024-03-03 12:00 | Outpatient (REF) | payer OTHER, SELFPAY | LOC: DHSLP 12:00 | PROVIDERS: ATTENDING PHYSICIAN Internal Medicine Critical Care Medicine; FAMILY PHYSICIAN Family Medicine | DX: G47.33 Obstructive sleep apnea (adult) (pediatric) (principal); R09.02 Hypoxemia | CPT/HCPCS: 95806 ==

== ENCOUNTER 2024-03-14 08:15 | Outpatient (RCR) | payer OTHER, SELFPAY | END 2024-03-29 09:36 | disposition home or self-care (01) | LOC: PURB 08:15 | PROVIDERS: ATTENDING PHYSICIAN Internal Medicine Critical Care Medicine; FAMILY PHYSICIAN Family Medicine | DX: J44.9 Chronic obstructive pulmonary disease, unspecified (principal) | CPT/HCPCS: 94625 ==

== ENCOUNTER 2024-05-18 06:35 | Day surgery (SDC) | payer OTHER, SELFPAY ==
[2024-05-18 12:10] VITALS: BP 132/75; BMI 24.3
[2024-05-18 12:40] VITALS: BMI 24.3
[2024-05-18 15:37] VITALS: BP 131/72; BP 187/161
[2024-05-18 15:39] VITALS: BP 131/72
[2024-05-18 15:45] VITALS: BP 110/67
[2024-05-18 16:01] VITALS: BP 138/83
== END 2024-05-18 16:22 | disposition home or self-care (01) ==
LOC: GI 06:35
PROVIDERS: ATTENDING PHYSICIAN Internal Medicine Gastroenterology
DX: K22.89 Other specified disease of esophagus (principal); K31.89 Other diseases of stomach and duodenum; K22.70 Barrett's esophagus without dysplasia; Z09 Encounter for follow-up examination after completed treatment for conditions other than malignant neoplasm; Z85.01 Personal history of malignant neoplasm of esophagus
CPT/HCPCS: 43239; 88305

== ENCOUNTER 2024-10-06 09:59 | Emergency (ER) | payer OTHER, SELFPAY ==
[2024-10-06] VITALS (7 sets, daily range): BP systolic 155–184; BP diastolic 78–99; BMI 24.7
[2024-10-06 11:44] LABS: % Basophils 0.8 % (0-2); % Eosinophils 2.5 % (0-6); % Immature Granulocytes 0.3 % (0-0.5); % Lymphocytes 7.4 % (20.5-51.1); % Monocytes 6.6 % (1.7-9.3); % Neutrophils 82.4 % (42.2-75.2); Absolute Basophils 0.1 10^3/uL (0-0.2); Absolute Eosinophils 0.2 10^3/uL (0-0.7); Absolute Lymphocytes 0.6 10^3/uL (1.2-3.4); Absolute Monocytes 0.5 10^3/uL (0.1-0.6); Absolute Neutrophils 6.2 10^3/uL (1.4-6.5); Hemoglobin 15.6 g/dL (13.0-18.0); Mean Corp Hgb Conc. 33.9 g/dL (33.0-37.0); Mean Corpuscular Hgb 30.4 pg (27.0-31.0); Mean Corpuscular Volume 89.5 fL (80.0-94.0); Mean Platelet Volume 9.5 fL (7.4-10.4); Nucleated Red Blood Cells % 0 % (-); Platelet Count 167 10^3/uL (130-400); Red Blood Cell Count 5.14 10^6/uL (4.70-6.10); Red Cell Dist. Width 14.2 % (11.5-14.5); White Blood Cell Count 7.6 10^3/uL (4.8-10.8)
[2024-10-06 11:55] LABS: ALT (SGPT) 18 U/L (0-50); AST (SGOT) 29 U/L (17-59); Albumin 4.2 g/dl (3.5-5.0); Alkaline Phosphatase 75 U/L (38-126); Blood Urea Nitrogen 10 mg/dl (9-20); Calcium 9.5 mg/dl (8.4-10.2); Carbon Dioxide 33 mmol/L (22-30); Chloride 92 mmol/L (98-107); Estimated Creatinine Clearance 117 ml/min; Glucose 127 mg/dl (70-99); Magnesium 1.6 mg/dl (1.6-2.3); Potassium 3.8 mmol/L (3.5-5.1); Sodium 132 mmol/L (135-145); Total Bilirubin 0.7 mg/dl (0.2-1.3); Total Protein 6.9 g/dl (6.3-8.2); eGFR > 60.00
[2024-10-06 12:04] LABS: Troponin I 0.012 ng/ml
[2024-10-06 12:23] LABS: TSH 0.94 uIU/ml (0.47-4.68)
[2024-10-06] MEDS: VENTOLIN NEBULES 2.5 MG INH (13:24)
--- NOTE | 2024-10-06 14:18 | ED.GENMED ---
History of Present Illness
General
Chief Complaint: Numbness
Source: patient, spouse and family
Exam Limitations: none
Time Seen by Provider: 10/06/24 10:58
Nursing documentation reviewed up to this point in time: agreed with
History of Present Illness
History of Present Illness:
74-year-old male past medical history of A-fib currently on aspirin daily not anticoagulated, CHF hypertension presenting to the emergency department today with concerns of an episode where he coughed this morning got very sweaty felt tingling and
numbness into his fingers and his lips also a right sided headache. Resolved after 15 to 20 minutes currently feels well. Had similar episode 2 weeks ago.
Past History
Past History
ED Past Medical History: Cancer (Prostate cancer with implant and radiation seeds.), HTN and Hypercholesterolemia
ED Past Surgical History: Cardiac (Ablation), Orthopedic (Rotator cuff surgery) and Other (Hernia repair)
Social History
Tobacco: Smoker
Alcohol: Daily (Beer 4 a day)
Personal:
Living: with family
Employment: Employed
Review of Systems
Review of Systems
Allergies reviewed?: Yes
All Other Systems: ROS reviewed and negative except as documented in HPI and ROS
Phy Exam
Physical Exam
Physical Exam:
GENERAL: Alert , in no apparent distress
EYE: pupils equal and reactive
NECK: Supple, no significant adenopathy.
ENT: o/p clr, mmm.
CARDIAC: Regular rate and rhythm .
LUNGS: Clear breath sounds bilaterally, no acute respiratory distress, no wheezes/rales/rhonchi
ABDOMEN: Soft, without focal tenderness, no r/g, no cvat
NEUROLOGICAL: Alert and oriented, no focal neuro deficits
SKIN: Warm and dry, skin intact.
MUSCULOSKELETAL: No edema, well perfused.
PSYCH: Normal and appropriate interaction.
Course
Orders/Labs/Results
Orders:
Orders
10/06/24 11:09
Electrocardiogram (*1) Urgent
Reason for Study: Fatigue / Weakness
10/06/24 11:10
EKG- Treatment ONCE
10/06/24 11:12
CT Head W/o Iv Contrast Urgent
Comment:
Reason For Exam: right headache, left sided numbness
Cardiac Monitoring- Treatment ONCE
EKG- Treatment ONCE
CR Chest - 2 Views Urgent
Comment:
Reason For Exam: cough
10/06/24 11:29
Complete Blood Count/With Diff Urgent
Comprehensive Metabolic Panel Urgent
Magnesium Urgent
TSH Urgent
Troponin I Urgent
10/06/24 13:20
Albuterol Nebs [Ventolin Nebules] 2.5 mg INH R NOW STA
10/06/24 14:27
Labetalol HCl [Trandate] 5 mg IV NOW STA
Abnormal Lab Results
10/06/24
11:29
Absolute Lymphs (auto) 0.6 L 10^3/uL
(1.2-3.4)
Neutrophils % 82.4 H %
(42.2-75.2)
Lymphocytes % 7.4 L %
(20.5-51.1)
Sodium 132 L mmol/L
(135-145)
Chloride 92 L mmol/L
(98-107)
Carbon Dioxide 33 H mmol/L
(22-30)
Creatinine 0.6 L mg/dL
(0.7-1.3)
Glucose 127 H mg/dl
(70-99)
10/06/24 11:29
10/06/24 11:29
Vital Signs
Initial and Last Documented VS:
Initial Vital Signs
Temp Pulse Resp BP Pulse Ox
97.5 F 95 18 158/94 92
10/06/24 10:04 10/06/24 10:04 10/06/24 10:04 10/06/24 10:04 10/06/24 10:04
Last Documented Vital Signs
Temp Pulse Resp BP Pulse Ox
97.5 F 96 16 152/81 92
10/06/24 10:04 10/06/24 15:15 10/06/24 15:15 10/06/24 15:22 10/06/24 15:15
MDM/Problems Addressed
MDM/Problems Addressed:
74-year-old male presenting to the emergency department today after episode where he was coughing felt sweaty felt numbness into his left hand and lips also a right-sided headache lasted for 1520 minutes and resolved. Asymptomatic here normal
neurologic evaluation. Blood pressure elevated on arrival. Slight improvement while here but still elevated given a dose of labetalol. Otherwise Case was discussed with neurosurgery recommending transfer for monitoring at [place]. Patient
agreeable. Stable throughout ER stay.
*Critical Care Note
Total Time (30-74mins, 75-104mins- exclusive of procedures): Not Applicable
ED Attending Note
-
Portions of this chart may have been created with voice recognition software.� Occasional wrong word or��sound alike� substitutions may have occurred due to the inherent limitations of voice recognition software.
Discharge Plan
Departure
Patient Disposition: [facility]
Date of Disposition: 10/06/24
Time of Disposition: 14:27
Patient with high blood pressure during this ER visit?: No
Condition: Fair
Covid-19: Not Applicable
Discharge Problem:
Subdural hematoma
Prescriptions:
No Action
tamsulosin [Flomax] 0.4 MG capsule
0.8 mg PO DAILY
multivitamin 1 EACH tablet
1 ea PO DAILY
Trelegy Ellipta 200-62.5-25 mcg Blister With Device
1 inh INHALATION DAILY
omeprazole 40 mg Capsule,Delayed Release(Dr/Ec)
40 mg PO BID
valsartan [Diovan] 320 MG tablet
320 mg PO DAILY
acetaminophen [Tylenol Extra Strength] 500 mg Tablet
1,000 mg PO Q6H PRN (Reason: mild pain)
aspirin 81 mg Tablet,Chewable
81 mg PO DAILY
albuterol sulfate 90 mcg/actuation HFA aerosol inhaler
2 puff INHALATION R BID
diltiazem HCl 120 mg tablet extended release 24 hr
120 mg PO DAILY
azithromycin 250 mg tablet
250 mg PO MOWEFR@0800
Referrals:
Vivek Phillip, DO [Family Provider] -
Hospital Transfer
Other hospital: [facility]
I certify that the patient requires transfer: Yes
Discussed case with accepting physician: Yes
Reason for transfer: higher level of care, availability of service and specialties available
Interventions
Interventions:
*Risk Screen - Suicide Last Done: 10/06/24 10:04
*General Assessment Last Done: 10/06/24 10:04
*Neglect/Abuse Screening Last Done: 10/06/24 10:04
*ED- Fall Risk Assessment Last Done: 10/06/24 16:31
*ED COVID-19 Vaccine History Last Done: 10/06/24 16:31
*Nursing Disposition Last Done: 10/06/24 16:31
ED- Neurological Assessment Last Done: 10/06/24 12:03
Discharge Date and Time
Discharge Date/Time: 10/06/24 16:30
Print Language: MOHAWK
[2024-10-06] MEDS: TRANDATE 5 MG IV (15:22)
== END 2024-10-06 16:30 | disposition short-term general hospital (02) ==
LOC: EMR 09:59
PROVIDERS: Physician Assistant; EMERGENCY PHYSICIAN Emergency Medicine; FAMILY PHYSICIAN Family Medicine
DX: S06.5XAA Traumatic subdural hemorrhage with loss of consciousness status unknown, initial encounter (principal); X58.XXXA Exposure to other specified factors, initial encounter; I48.91 Unspecified atrial fibrillation; I11.0 Hypertensive heart disease with heart failure; I50.9 Heart failure, unspecified; E78.00 Pure hypercholesterolemia, unspecified; F17.200 Nicotine dependence, unspecified, uncomplicated; Z79.82 Long term (current) use of aspirin; Z85.46 Personal history of malignant neoplasm of prostate
CPT/HCPCS: 99284; 94640; 96374; 70450; 71046; 80053; 83735; 84443; 84484; 85025; 93005

== ENCOUNTER → 2024-11-28 15:35 | Outpatient (REF) | payer OTHER, SELFPAY | LOC: RAD 15:35 | PROVIDERS: ATTENDING PHYSICIAN Nurse Practitioner Family | DX: Q21.12 Patent foramen ovale (principal); E85.4 Organ-limited amyloidosis; I68.0 Cerebral amyloid angiopathy | CPT/HCPCS: 70450 ==

== ENCOUNTER → 2024-11-29 08:31 | Outpatient (REF) | payer OTHER, SELFPAY | LOC: HWRAD 08:31 | PROVIDERS: ATTENDING PHYSICIAN Nurse Practitioner Adult Health; FAMILY PHYSICIAN Family Medicine; REFERRING PHYSICIAN Internal Medicine Critical Care Medicine | DX: R06.02 Shortness of breath (principal); R91.1 Solitary pulmonary nodule | CPT/HCPCS: 71250 ==

== ENCOUNTER → 2024-12-06 08:13 | Outpatient (REF) | payer OTHER, SELFPAY | LOC: RCS 08:13 | PROVIDERS: ATTENDING PHYSICIAN Nurse Practitioner; FAMILY PHYSICIAN Family Medicine | DX: I49.3 Ventricular premature depolarization (principal) | CPT/HCPCS: 93306; Q9950 ==

== ENCOUNTER 2025-01-26 14:47 | Inpatient (IN) | payer OTHER, SELFPAY ==
[2025-01-26 09:27] VITALS: BP 135/62
[2025-01-26 09:42] VITALS: BMI 24.7
[2025-01-26 09:53] LABS: Hematocrit 34.5 % (39.0-52.0); Hemoglobin 12.4 g/dL (13.0-18.0); Mean Corp Hgb Conc. 35.9 g/dL (33.0-37.0); Mean Corpuscular Volume 91.0 fL (80.0-94.0); Nucleated Red Blood Cells % 0 % (-); Platelet Count 144 10^3/uL (130-400); Red Cell Dist. Width 12.8 % (11.5-14.5)
--- NOTE | 2025-01-26 10:11 | ED.GENMED ---
History of Present Illness
General
Chief Complaint: Fall
Source: patient
Exam Limitations: none
Time Seen by Provider: 01/26/25 09:44
Nursing documentation reviewed up to this point in time: agreed with
History of Present Illness
History of Present Illness:
74-year-old male with a past medical history of COPD, chronic respiratory failure on 1 to 2 L of home oxygen, hypertension, CHF, atrial fibrillation not on blood thinner who presents to the emergency department with his via EMS for evaluation
after a fall; patient reports that he has been feeling unwell for the past few days as well. Regarding fall: Patient says that he was very weak and shaky this morning when he was going to the bathroom and he lost his balance and fell backwards. He
says he did hit his head, did not pass out. He says he has some mild soreness in his neck and mild headache but denies any other injuries from fall. He denies any back pain, chest/rib pain, abdominal pain or pain in his extremities. He says that
he has been feeling unwell for the past few days�he has been undergoing treatment for presumed pneumonia versus COPD exacerbation for the past week. He has had increased fatigue and hacking cough and was prescribed steroids and Bactrim by his
primary doctor however the symptoms have not improved and in fact cough has slightly worsened. He denies feeling shortness of breath. Only other complaint on review of systems was some increased urinary frequency recently. His does note that
he had a history of atraumatic subdural hemorrhage in October ultimately treated at [place].
Past History
Past History
ED Past Medical History: Cancer (Prostate cancer with implant and radiation seeds.), HTN and Hypercholesterolemia
ED Past Surgical History: Cardiac (Ablation), Orthopedic (Rotator cuff surgery) and Other (Hernia repair)
Social History
Tobacco: Smoker
Alcohol: Daily (Beer 4 a day)
Personal:
Living: with family
Employment: Employed
Review of Systems
Review of Systems
All Other Systems: ROS reviewed and negative except as documented in HPI and ROS
Constitutional: Reports fatigue; Denies fever or chills
EENT: Denies sore throat
Respiratory: Reports cough; Denies trouble breathing
Cardiac: Denies chest pain
ABD/GI: Denies abdominal pain, nausea, vomiting or diarrhea
: Reports frequency; Denies dysuria or flank pain
Musculoskeletal: Reports neck pain; Denies back pain
Neurological: Reports headache; Denies dizzy
Phy Exam
Physical Exam
Physical Exam:
General: Awake, alert, oriented x3 with a GCS of 15; no acute distress
Head: Normocephalic, atraumatic
Eyes: Conjunctiva normal, EOMI, pupils equal round reactive to light bilaterally
Throat: Airway intact, handling secretions, tongue atraumatic
Neck: Trachea midline, no midline cervical spine tenderness, good range of motion with minimal pain
Lungs: Patient has diffuse scattered wheezing and frequent hacking cough throughout assessment; pulse ox acceptable on normal home oxygen, no tachypnea or signs of respiratory distress
Heart: Tachycardia with regular rhythm, no murmurs, gallops, or rubs; no chest wall tenderness
Abd: Soft, non distended, nontender
Back: No signs of trauma the back or flank, no tenderness in the thoracic or lumbar spine
Skin: Old bruise on right upper arm and left forearm but no other signs of trauma
Extremities: No deformities, no reproducible tenderness, no pain on range of motion of arms or legs
Scores
Heart Failure Risk
Heart Failure Risk Score: Not Applicable
Heart Score for Chest Pain Patients
STEMI patient?: Not applicable
Withdrawal Assessment of Alcohol
Withdrawal Assessment Completed?: Not applicable
Course
Orders/Labs/Results
Orders:
Orders
01/26/25 09:43
Complete Blood Count/With Diff Urgent
01/26/25 10:10
CT Cervical Spine W/o Iv Contr Urgent
Comment:
Reason For Exam: fall with head strike; neck pain
CT Head W/o Iv Contrast Urgent
Comment:
Reason For Exam: fall with head strike; h/o SDH
CR Chest - 2 Views Urgent
Comment:
Reason For Exam: cough, weakness
01/26/25 10:11
Ipratropium/Albuterol Sulfate [Duoneb] 3 ml INH R NOW STA
01/26/25 10:18
Electrocardiogram (*1) Urgent
Reason for Study: Fatigue / Weakness
EKG- Treatment ONCE
01/26/25 10:25
Basic Metabolic Panel Urgent
01/26/25 10:39
Osmolality, Random Urine Urgent
Time Specimen was Collected: 10:16
Comment: ADD
Urinalysis Reflex To Culture Urgent
Date Specimen was Collected: 01/26/25
Time Specimen was Collected: 10:16
Urine Microscopic Reflex Cult Urgent
Urine Sodium Urgent
Time Specimen was Collected: 10:16
Comment: ADD
01/26/25 13:14
Osmolality, Random Urine Urgent
Urine Sodium Urgent
01/26/25 13:16
Add On- LAB Urgent
Tests Added?: urine osmol. urine na
01/26/25 13:21
CefTRIAXone [Rocephin] 1,000 mg IV NOW STA
MethylPREDNISolone PF [Solu-Medrol Pf] 125 mg IV NOW STA
01/26/25 13:22
Consult Nephrology [NEPHROLOGY CONSULT] Urgent
Consulting Provider: Chase Ponce
Was physician already notified: Yes
Azithromycin 500 mg/250 ml [Zithromax Infusion] 500 mg in 250 ml IV NOW
Abnormal Lab Results
01/26/25 01/26/25 01/26/25
09:43 10:25 10:39
RBC 3.79 L 10^6/uL
(4.70-6.10)
Hgb 12.4 L g/dL
(13.0-18.0)
Hct 34.5 L %
(39.0-52.0)
MCH 32.7 H pg
(27.0-31.0)
Abs Immat Gran (auto) 0.2 H 10^3/uL
(0-0.05)
Absolute Lymphs (auto) 0.5 L 10^3/uL
(1.2-3.4)
Absolute Eos (auto) 1.4 H 10^3/uL
(0-0.7)
Immature Gran % 2.2 H %
(0-0.5)
Lymphocytes % 6.7 L %
(20.5-51.1)
Eosinophils % 20.8 H %
(0-6)
Sodium 122 L mmol/L
(135-145)
Chloride 87 L mmol/L
(98-107)
Glucose 101 H mg/dl
(70-99)
Calcium 8.1 L mg/dl
(8.4-10.2)
Ur Occult Blood Reflex 2+ A
(Negative)
Urine RBC 7-10 A /HPF
(0-2)
Urine Bacteria (Reflex) Few A
(Negative)
01/26/25 09:43
01/26/25 10:25
Vital Signs
Initial and Last Documented VS:
Initial Vital Signs
Temp Pulse Resp BP Pulse Ox
37.2 C 100 16 135/62 90
01/26/25 09:27 01/26/25 09:27 01/26/25 09:27 01/26/25 09:27 01/26/25 09:27
Last Documented Vital Signs
Temp Pulse Resp BP Pulse Ox
37.2 C 91 18 130/68 97
01/26/25 09:27 01/26/25 12:34 01/26/25 12:34 01/26/25 12:34 01/26/25 12:34
MDM/Problems Addressed
Differential Diagnosis Includes:
Fall with headache/neck pain: Cervical spine injury, subdural/brain bleed, concussion, cervical strain
Weakness/cough: Pneumonia, COPD exacerbation, UTI, anemia/electrolyte derangement
MDM/Problems Addressed:
74-year-old male presents for evaluation after a fall in the setting of recent illness as described above. Vitals and exam as above. Will plan to check CT head and cervical spine. Will check labs including a CBC and a CMP. Swab for COVID and
flu. Will check chest x-ray, EKG. Will treat with DuoNeb. Reassess after the above.
Labs reviewed: CBC shows no significant abnormalities. CMP shows acute hyponatremia with a sodium of 122, glucose normal. Added urine sodium and osmolality. Urinalysis no infection. Chest x-ray shows no acute pneumonia. CT head and cervical
spine negative for any acute pathology. Suspect that much of his weakness/dizziness may be attributable to hyponatremia. Discussed with nephrology�recommended fluid restriction for now pending urine studies and they will consult outpatient.
Regarding his cough�suspect that this is likely COPD exacerbation. Will give IV steroid and continue DuoNebs. I will cover for occult pneumonia as he reports productive cough which is a change from his typical. He has been on Bactrim but got drug
rash from this�will discontinue this in favor of ceftriaxone and azithromycin for now. Case discussed with hospitalist for admission.
Chronic conditions affecting care:
COPD, chronic respiratory failure
*Radiology
Radiology exam reviewed: preliminary read by ED provider and radiology read reviewed
*Pulse Oximetry
SaO2: 94
Nasal Cannula flow liters per minute: 1
Oxygen Mode of Delivery: Room air
Patient hypoxic: no (94% on home oxygen 1 L nasal cannula)
*Critical Care Note
Total Time (30-74mins, 75-104mins- exclusive of procedures): Not Applicable
Data Reviewed
Review of Other/Old Records Reveals: Labs and Records
Source: patient, records, spouse and ambulance crew
Patient Management
Discussion with other providers: Hospitalist (Discussed with hospitalist) and Track Oiler (Discussed with calibration checker)
Escalation/DeEscalation of care consider admission/obs:
Admission indicated
ED Attending Note
-
Portions of this chart may have been created with voice recognition software.� Occasional wrong word or��sound alike� substitutions may have occurred due to the inherent limitations of voice recognition software.
Discharge Plan
Departure
Patient Disposition: Admit
Date of Disposition: 01/26/25
Time of Disposition: 13:22
Admit to doctor: Ander
Presentation/result/management discussed w/ accepting MD/DO: Hospitalist
Discharge Problem:
COPD exacerbation, Acute hyponatremia
Prescriptions:
No Action
tamsulosin [Flomax] 0.4 MG capsule
0.8 mg PO DAILY
multivitamin 1 EACH tablet
1 ea PO DAILY
Trelegy Ellipta 200-62.5-25 mcg Blister With Device
1 inh INHALATION DAILY
omeprazole 40 mg Capsule,Delayed Release(Dr/Ec)
40 mg PO BID
valsartan [Diovan] 320 MG tablet
320 mg PO DAILY
acetaminophen [Tylenol Extra Strength] 500 mg Tablet
1,000 mg PO Q6H PRN (Reason: mild pain)
aspirin 81 mg Tablet,Chewable
81 mg PO DAILY
albuterol sulfate 90 mcg/actuation HFA aerosol inhaler
2 puff INHALATION R BID
diltiazem HCl 120 mg tablet extended release 24 hr
120 mg PO DAILY
azithromycin 250 mg tablet
250 mg PO MOWEFR@0800
Referrals:
Vivek Phillip DO [Family Provider, Family Practice]
Interventions
Interventions:
*Risk Screen - Suicide Last Done: 01/26/25 09:33
*General Assessment Last Done: 01/26/25 09:33
*Neglect/Abuse Screening Last Done: 01/26/25 09:33
ED- Cardiac Assessment Last Done: 01/26/25 09:34
ED-Musculoskeletal Assessment Last Done: 01/26/25 09:36
ED- Neurological Assessment Last Done: 01/26/25 10:29
ED- Pulmonary Assessment Last Done: 01/26/25 09:34
ED-Skin Assessment Last Done: 01/26/25 09:43
Discharge Date and Time
Print Language: NICARAGUAN
[2025-01-26] MEDS: DUONEB 3 ML INH ×2 (10:28→20:27)
[2025-01-26 10:46] LABS: Urine Character Clear (Clear)
[2025-01-26 10:53] LABS: Blood Urea Nitrogen 16 mg/dl (9-20); Calcium 8.1 mg/dl (8.4-10.2); Carbon Dioxide 29 mmol/L (22-30); Chloride 87 mmol/L (98-107); Estimated Creatinine Clearance 100 ml/min; Glucose 101 mg/dl (70-99); Sodium 122 mmol/L (135-145); eGFR > 60.00
[2025-01-26 10:58] LABS: Urine White Cell 0-2 /HPF (0-5)
[2025-01-26 12:34] VITALS: BP 130/68
--- NOTE | 2025-01-26 13:30 | HPS.HSE ---
Family Physician
-
Family Physician: Vivek Phillip
Chief Complaint
-
Falls
History of Present Illness
Patient is a 74 y/o male past medical history of atraumatic subdural hematoma in October, COPD on nocturnal oxygen, paroxysmal atrial fibrillation, hypertension, hyperlipidemia, polycythemia and prostate cancer who presents following a fall. Patient
reports he was feeling very weak and shaky this morning which resulted in a fall prompting his to call EMS and prompting his presentation to the emergency department. Work-up in ED revealed significant hyponatremia. Patient reports he has
been having trouble with his sodium level since his subdural. He had blood work on January 10 which revealed sodium 135 and he was instructed to decrease his sodium tablets from 6 tablets a day to 3 tablets a day. Patient reports compliance with his
50oz fluid restriction.
Patient is also complaining about persistent cough. He reports recently being treated for possible pneumonia vs COPD exacerbation. He notes cough is productive of thick, clear mucus. He denies any fevers.
Medical History
Past Medical History
Past Medical History: Reports Other
Additional Past Medical History:
Subdural Hematoma - October 2024
Cerebral Amyloid
Emphysema/COPD
Nocturnal Hypoxia
Paroxysmal Atrial Fibrillation s/p Ablation Jun 2015
Essential Hypertension
Hyperlipidemia
Polycythemia Vera
Tejada's Esophagus
Prostate Cancer s/p Radiation Seeds
Past Surgical History: Reports Other
Additional Past Surgical History:
Tonsillectomy
Hernia Repair
Social History
Tobacco: Former Smoker (Quit in 2018)
Alcohol: None
Family History
Family History: Not pertinent
Allergies / Home Medications
Allergies reflects when Allergies were last updated in [facility].
Home Medications with original date entered in [facility]
Allergy/Medication List:
Allergies
Allergy/AdvReac Type Severity Reaction Status Date / Time
doxycycline Allergy Hives Verified 01/26/25 09:37
lisinopril Allergy cough Verified 01/26/25 09:37
Home Medications
tamsulosin 0.4 mg capsule (Flomax) 0.4 mg PO DAILY@1200 Urinary Issue 06/15/14
fluticasone fur. 200 mcg-umeclid 62.5 mcg-vilant 25 mcg inhalat.powder (Trelegy Ellipta) 1 inh inhalation R DAILY Lung/Breathing Issues 08/07/22
omeprazole 40 mg capsule,delayed release 40 mg PO BID GERD 10/29/23
acetaminophen 500 mg tablet (Tylenol Extra Strength) 1,000 mg PO Q6HPRN PRN mild pain 10/06/24
albuterol sulfate 90 mcg/actuation aerosol inhaler 2 puff inhalation R Q6HPRN PRN sob 10/06/24
diltiazem HCl 180 mg capsule,24 hr,extended release 180 mg PO DAILY 01/26/25
furosemide 20 mg tablet (Lasix) 20 mg PO DAILY 01/26/25
prednisone 10 mg tablet 10 mg PO DIRECTED 01/26/25
sodium chloride 1 gram tablet 1,000 mg PO TID 01/26/25
valproic acid (as sodium salt) 250 mg/5 mL oral solution 625 mg PO BID 01/26/25
valsartan 160 mg tablet 160 mg PO DAILY 01/26/25
Review of Systems
-
A 12 point ROS was completed and negative except as noted: Yes
Constitutional: Denies Fever
Respiratory: Reports Cough
Cardiac: Denies Chest Pain or Palpitations
Abdomen/GI: Denies Abdominal Pain, Nausea, Vomiting or Diarrhea
Physical Exam
Vital Signs
Vital Signs
Temp Pulse Resp BP Pulse Ox
99.0 F 91 18 130/68 97
01/26/25 09:27 01/26/25 12:34 01/26/25 12:34 01/26/25 12:34 01/26/25 12:34
Physical Exam
General: Comfortable and Conversant
HEENT: Anicteric and Moist mucous membranes
Respiratory: Clear and Non Labored Respirations; No Wheezes
Cardiac: S1/S2 and Regular Rhythm; No Tachycardia
GI: Soft and Non Tender
Genito-urinary: Clear Urine
Musculoskeletal: No Clubbing, No Cyanosis and No Edema
Skin: Warm and Dry
Neuro: Awake, Alert, Oriented and Nonfocal/grossly intact
Psych: Calm
Laboratory Results
-
01/26/25 09:43
Laboratory Results
Total Bilirubin Cancelled 01/26/25 10:25
AST Cancelled 01/26/25 10:25
ALT Cancelled 01/26/25 10:25
Alkaline Phosphatase Cancelled 01/26/25 10:25
Data Reviewed
-
Lab Data: Labs Reviewed by me
Old Records: Reviewed
Impression/Plan
-
Symptomatic Acute on Chronic Hyponatremia, suspect multifactorial related to cerebral salt wasting following subdural hematoma, valproic acid use for seizure prophylaxis and recently decreased sodium tablet dosage
-Consult Nephrology
-Continue 50oz fluid restriction
-Increase sodium tablets 2 tabs TID as prior
Acute COPD Exacerbation, doubt pneumonia
Chronic Nocturnal Hypoxia
-Patient completed coarse fo Bactrim
-Continue prednisone 40mg Daily
-Continue DuoNeb QID and PRN
-Add Mucinex
-Continue 2L via NC nightly
Subdural Hematoma - October 2024
-Continue valproic acid for seizure for prophylaxis
Paroxysmal Atrial Fibrillation s/p Ablation Jun 2015
-Patient no longer on anticoagulation following subdural
-Continue diltiazem for rate control
Essential Hypertension
-Continue diltiazem and valsartan with hold parameters
GERD / Tejada's Esophagus
-Continue Protonix
Hx Prostate Cancer s/p Radiation Seeds
-Continue Flomax
DVT proph: SCDs
Code Status: Full Code
--- NOTE | 2025-01-26 14:11 | W.PN.UPDATE ---
Update Note
Progress Note Update
This is an addendum to the H&P written by Jasmina Foley on 01/26/2025. �Patient seen and examined independently with PA.
74-year-old male past medical history of COPD 1 to 2 L baseline, CHF, atrial fibrillation, hypertension, recent subdural hemorrhage in October treated Kady, prostate cancer status post radiation seeds, presenting for fall. �Fall was due to
shakiness and losing balance. �Feeling unwell for few days. �Mild soreness in the neck/headache. �Has been treated for presumed pneumonia/COPD for past week for cough. �Treated with steroids and Bactrim without improvement.�
Today he developed redness of face and body non itchy.�
Has been having ongoing issues with hyponatremia since subdural hemorrhage. �Was started on valproic acid for seizure prophylaxis. �Was started on sodium tablets 2 tablets 3 times daily decreased to 1 tablet 3 times daily about 2 weeks ago because
sodium was improving. �Has been following 50 ounce fluid restriction.
Lung sound clear although diminished breath sounds.�
Labs show sodium of 122.
CT head, cervical spine unremarkable. �Chest x-ray unremarkable.
Patient with ambulatory dysfunction and fall likely secondary to hyponatremia.
Patient with unresolving cough suspect mild COPD exacerbation.
Redness of the body likely from Bactrim although no prior sulfa allergy.� Completed 8 days of antibiotic.�
DuoNebs every 6 hours. �Continue steroids as prednisone 40 mg.
Patient also with chronic hyponatremia suspect SIADH/cerebral salt wasting/valproate contributing. �Urine sodium, osmolality pending. �Increase salt tablets back to 2 tablets 3 times daily. �Continue fluid restriction. �Nephrology consulted.
[2025-01-26] MEDS: ROCEPHIN 1000 MG IV (14:12)
[2025-01-26] MEDS: ZITHROMAX INFUSION 250 IV (14:13)
[2025-01-26] MEDS: SOLU-MEDROL PF 125 MG IV (14:13)
--- NOTE | 2025-01-26 14:36 | CM ---
Patient seen at bedside in ED with also present. Patient states that he lives with his in a 2 story home with a walker and 1 liter of O2 at night. Patient is currently on O2 in the room. Patient uses the [facility] in [place]. Patient states
that he is driving and independent prior to admission. CM will continue to follow for discharge planning needs.
Plan; home with ; watch for home O2 needs/change. watch for VN possible.
--- NOTE | 2025-01-26 15:13 | W.CON.NEPH ---
Consultation
-
Date/Time Consultation Requested: January 26, 2025 at 1300
Date/Time Consultation Performed: January 26, 2025 at 3 PM
Requesting Provider: Walter Worthington
Performing Provider: Dr. Ponce
Reason for Consultation: Hyponatremia
Medical History
-
Chief Complaint: Hypoxia, SOB
History of Present Illness:
73 y/o male with a past medical history of chronic obstructive pulmonary disease on inhalers, hypertension on diovan,Amlodipine, atrial fibrillation (status post ablation not on AC),prostate ca s/p radiation seed, GERD on PPI BID, polycythemia vera
phlebotomy by heme atraumatic subdural hematoma in October chr hyponatremia in 130 range who presents with his post fall, productive cough
He is also been on Bactrim for the last week for bronchitis. Today he developed a diffuse rash and flushing in his face.
Is found to have a sodium of 122
He follows with nephrology in [place] and recently decreased his salt tablets
Past Medical History
Paroxysmal atrial Fibrillation s/p Ablation Jun 2015
Essential Hypertension
Hyperlipidemia
Emphysema/COPD
Polycythemia Vera
Tejada's Esophagus
Prostate Cancer s/p Radiation Seeds
Past Surgical History: Other (Tonsillectomy Hernia Repair)
Social History
Tobacco: Former Smoker (quit 3 yr ago)
Alcohol: Daily
Living: With Family
Family History
Family History: Not Pertinent
Allergies / Home Medications
Allergy/AdvReac Type Severity Reaction Status Date / Time
doxycycline Allergy Hives Verified 01/26/25 09:37
lisinopril Allergy cough Verified 01/26/25 09:37
�Medication �Instructions �Recorded �Confirmed �Type
tamsulosin 0.4 mg capsule (Flomax) 0.4 mg PO DAILY@1200 Urinary Issue 06/15/14 01/26/25 History
fluticasone fur. 200 mcg-umeclid 1 inh inhalation R DAILY 08/07/22 01/26/25 History
62.5 mcg-vilant 25 mcg Lung/Breathing Issues
inhalat.powder (Trelegy Ellipta)
omeprazole 40 mg capsule,delayed 40 mg PO BID GERD 10/29/23 01/26/25 History
release
acetaminophen 500 mg tablet 1,000 mg PO Q6HPRN PRN mild pain 10/06/24 01/26/25 History
(Tylenol Extra Strength)
albuterol sulfate 90 mcg/actuation 2 puff inhalation R Q6HPRN PRN sob 10/06/24 01/26/25 History
aerosol inhaler
diltiazem HCl 180 mg capsule,24 180 mg PO DAILY 01/26/25 01/26/25 History
hr,extended release
furosemide 20 mg tablet (Lasix) 20 mg PO DAILY 01/26/25 01/26/25 History
prednisone 10 mg tablet 10 mg PO DIRECTED 01/26/25 01/26/25 History
sodium chloride 1 gram tablet 1,000 mg PO TID 01/26/25 01/26/25 History
valproic acid (as sodium salt) 250 625 mg PO BID 01/26/25 01/26/25 History
mg/5 mL oral solution
valsartan 160 mg tablet 160 mg PO DAILY 01/26/25 01/26/25 History
Review of Systems
-
Headache, cough. No nausea or vomiting no chest pain or shortness of breath other than chronic
All other systems: Negative unless noted
Physical Exam
Vital Signs
Vital Signs
Temp Pulse Resp BP Pulse Ox
99.0 F 91 18 130/68 97
01/26/25 09:27 01/26/25 12:34 01/26/25 12:34 01/26/25 12:34 01/26/25 12:34
Lab Results
WBC 6.7 10^3/uL (4.8-10.8) 01/26/25 09:43
RBC 3.79 10^6/uL (4.70-6.10) L 01/26/25 09:43
Hgb 12.4 g/dL (13.0-18.0) L 01/26/25 09:43
Hct 34.5 % (39.0-52.0) L 01/26/25 09:43
Plt Count 144 10^3/uL (130-400) 01/26/25 09:43
Sodium 122 mmol/L (135-145) L 01/26/25 10:25
Chloride 87 mmol/L (98-107) L 01/26/25 10:25
Carbon Dioxide 29 mmol/L (22-30) 01/26/25 10:25
BUN 16 mg/dl (9-20) 01/26/25 10:25
Creatinine 0.7 mg/dL (0.7-1.3) 01/26/25 10:25
eGFR > 60.00 01/26/25 10:25
Glucose 101 mg/dl (70-99) H 01/26/25 10:25
Calcium 8.1 mg/dl (8.4-10.2) L 01/26/25 10:25
Albumin Cancelled 01/26/25 10:25
Physical Exam
General no acute distress
HEENT no cephalic atraumatic extraocular muscle intact no scleral icterus no JVD neck supple
lungs clear to auscultation bilateral
heart regular S1-S2 positive
abdomen soft nontender positive bowel sounds
extremities no edema pulses present bilateral
Neurologically nonfocal alert and oriented x 3
Skin diffuse erythematous rash
Psych normal affect no bizarre behavior
Data Reviewed
-
Radiology: Image Personally Visualized and interpreted
Labs: Labs Reviewed by me, Discussed with Nurse, Discussed with Patient and Discussed with Family
Assessment/Plan
-
IMP:
Acute on chronic hyponatremia/SIADH
Acute Hypoxic Respiratory Insufficiency secondary to Pneumonia and Acute COPD Exacerbation
Recent bronchitis
Chronic COPD
Paroxysmal Atrial Fibrillation s/p Ablation Jun 2015
Essential Hypertension
Polycythemia Vera-phlebotomy with hematology
Tejada's Esophagus
Prostate Cancer s/p Radiation Seeds
Nontraumatic subdural hematoma October 2024
Drug reaction= Bactrim
PLan:
Etiology of his hyponatremia likely from his chronic COPD bronchitis
Discontinue Bactrim with likely drug reaction diffuse rash
Presenting sodium 122 with recent decrease in sodium tablets
urine indices shows a urine sodium of 157 with a urine osmolality of 482= consistent with SIADH
Will give a low-dose of Samsca
Fluid restrict
Repeat labs this afternoon
[2025-01-26 15:39] LABS: Potassium 4.1 mmol/L (3.5-5.1)
[2025-01-26] MEDS: SAMSCA 7.5 MG PO (16:00)
[2025-01-26] MEDS: SODIUM CHLORIDE 2 GRAM PO ×2 (18:23→20:19)
[2025-01-26 19:54] VITALS: BP 109/70; BMI 23.3
[2025-01-26 20:06] VITALS: BMI 23.3
[2025-01-26] MEDS: PROTONIX 40 MG PO (20:20)
[2025-01-26] MEDS: MUCINEX 600 MG PO (20:20)
[2025-01-26] MEDS: PULMICORT 0.5 MG INH (20:27)
[2025-01-26] MEDS: DEPAKENE 625 MG PO (20:56)
[2025-01-26 23:36] VITALS: BP 113/56
[2025-01-27 05:28] VITALS: BMI 22.9
[2025-01-27 07:20] VITALS: BP 140/63
[2025-01-27] MEDS: DUONEB 3 ML INH ×2 (07:27→11:38)
[2025-01-27] MEDS: PULMICORT 0.5 MG INH (07:27)
[2025-01-27 08:18] LABS: Blood Urea Nitrogen 19 mg/dl (9-20); Calcium 8.9 mg/dl (8.4-10.2); Carbon Dioxide 31 mmol/L (22-30); Chloride 93 mmol/L (98-107); Estimated Creatinine Clearance 99 ml/min; Glucose 135 mg/dl (70-99); Magnesium 2.3 mg/dl (1.6-2.3); Potassium 4.4 mmol/L (3.5-5.1); Sodium 130 mmol/L (135-145); eGFR > 60.00
[2025-01-27] MEDS: DEPAKENE 625 MG PO (08:35)
[2025-01-27] MEDS: DELTASONE 40 MG PO (08:37)
[2025-01-27] MEDS: CARDIZEM CD 180 MG PO (08:37)
[2025-01-27] MEDS: LASIX 20 MG PO (08:38)
[2025-01-27] MEDS: MUCINEX 600 MG PO (08:38)
[2025-01-27] MEDS: DIOVAN 160 MG PO (08:38)
[2025-01-27] MEDS: SODIUM CHLORIDE 2 GRAM PO (08:38)
[2025-01-27] MEDS: PROTONIX 40 MG PO (08:38)
--- NOTE | 2025-01-27 08:46 | W.PN.HOSP.TC ---
Addendum entered and electronically signed by Diego Khan MD 01/27/25 10:00:
Case discussed with nephrology. Medically cleared for discharge on higher dose of salt tabs.
Unexpected rapid recovery
Total time spent on d/c = 32 min. This included today's physical exam, progress note, review of laboratory and diagnostic data, preparation of discharge documents and prescriptions, and discussions about the pt's hospital course and discharge plan
with the patient and other emergency medical service manager involved in the patient's care.
Original Note:
Today's Communication/Plan
-
d/c
Assessment / Plan
Assessment / Plan
Gen: NAD, Awake and alert
Eyes: EOMI, PERRLA, no scleral icterus.
Neck: supple.
CV: RRR, +S1/S2, no m/r/g.
Resp: faint expiratory wheezes R base
Abd: +BS, soft, NT, ND
Skin: No rashes.
Neuro: CN 2-12 intact, non-focal.
Psych: Normal mood and affect.
CT brain/C-spine: No acute intracranial abnormality. No acute abnormality within the cervical spine.
CXR: No radiographic evidence of acute cardiopulmonary abnormality.
Symptomatic Acute on Chronic Hyponatremia:
-suspect multifactorial related to cerebral salt wasting following subdural hematoma, valproic acid use for seizure prophylaxis and recently decreased sodium tablet dosage
-renal following
-Continue with 1400c/day fluid restriction
-sodium tablets increased back to 2 tabs TID
-Na improved from 122 to 130
Acute COPD Exacerbation (mild):
-PNA has been ruled out
-chronic Nocturnal Hypoxia
-Patient completed a coarse of Bactrim [employer]
-Continue prednisone 40mg Daily x 5 days
-Continue DuoNeb QID and PRN
-cont Mucinex
-Continue 2L NC nightly
Subdural Hematoma - October 2024
-Continue valproic acid for seizure for prophylaxis
Paroxysmal Atrial Fibrillation s/p Ablation Jun 2015
-Patient no longer on anticoagulation following subdural
-Continue diltiazem for rate control
Essential Hypertension
-Continue diltiazem and valsartan with hold parameters
GERD / Tejada's Esophagus
-Continue Protonix
Hx Prostate Cancer s/p Radiation Seeds
-Continue Flomax
FULL/SCDs
Medically cleared for d/c, case management aware.
Anticipated Discharge: Today
Subjective/Interval History
-
Date of Service: January 27, 2025
No new complaints.
Objective Data
-
Labs:
Laboratory Results
01/27/25 01/27/25
00:30 07:20
Sodium Cancelled 130 L D
Potassium Cancelled 4.4
Chloride Cancelled 93 L
Carbon Dioxide Cancelled 31 H
BUN Cancelled 19
Creatinine Cancelled 0.7
Glucose Cancelled 135 H
Calcium Cancelled 8.9
Vital Signs:
Vital Signs
Temp Pulse Resp BP Pulse Ox
97.3 F 78 18 140/63 96
01/27/25 07:20 01/27/25 07:30 01/27/25 07:30 01/27/25 07:20 01/27/25 07:30
I&O
01/26/25 01/27/25 01/28/25
06:59 06:59 06:59
Output Total 600 / 600
Balance -600 / -600
[2025-01-27 10:36] VITALS: BP 113/67; BP 150/72; PULSE 82; O2SAT 94
[2025-01-27 11:24] VITALS: BP 113/67; BP 150/72; PULSE 82; O2SAT 95
--- NOTE | 2025-01-27 11:39 | CM ---
CM reviewed pt with attending- ready for dc
Discussion with PT/OT- outpt recs
Bedside meeting with pt and spouse
In agreement with outpt therapy
Script requested
IMM completed on 01/26 and remains valid
Discharge Disposition- home with outpt PT/OT, spouse will transport
[2025-01-27] MEDS: FLOMAX 0.4 MG PO (12:38)
--- NOTE | 2025-01-27 13:03 | W.PN.NEPH.PH ---
Today's Communication / Plan
-
nacl tab
ok for DC
Assessment/Plan
-
IMP:
Acute on chronic hyponatremia/SIADH
Acute Hypoxic Respiratory Insufficiency secondary to Pneumonia and Acute COPD Exacerbation
Recent bronchitis
Chronic COPD
Paroxysmal Atrial Fibrillation s/p Ablation Jun 2015
Essential Hypertension
Polycythemia Vera-phlebotomy with hematology
Tejada's Esophagus
Prostate Cancer s/p Radiation Seeds
Nontraumatic subdural hematoma October 2024
Drug reaction= Bactrim
PLan:
Etiology of his hyponatremia likely from his chronic COPD bronchitis
Discontinue Bactrim with likely drug reaction diffuse rash
Presenting sodium 122 with recent decrease in sodium tablets
urine indices shows a urine sodium of 157 with a urine osmolality of 482= consistent with SIADH
Samsca= na 130 betther
ok for dc and follow with otpt neph
cont nacl tabs
Fluid restrict
-
-
Date of Service: January 27, 2025
CC / HPI / ROS
-
no cp or sob
chart reviewed
no overnight events
rash improved
Labs
-
Labs:
WBC 6.7 10^3/uL (4.8-10.8) 01/26/25 09:43
RBC 3.79 10^6/uL (4.70-6.10) L 01/26/25 09:43
Hgb 12.4 g/dL (13.0-18.0) L 01/26/25 09:43
Hct 34.5 % (39.0-52.0) L 01/26/25 09:43
Plt Count 144 10^3/uL (130-400) 01/26/25 09:43
Sodium 130 mmol/L (135-145) L D 01/27/25 07:20
Potassium 4.4 mmol/L (3.5-5.1) 01/27/25 07:20
Chloride 93 mmol/L (98-107) L 01/27/25 07:20
Carbon Dioxide 31 mmol/L (22-30) H 01/27/25 07:20
BUN 19 mg/dl (9-20) 01/27/25 07:20
Creatinine 0.7 mg/dL (0.7-1.3) 01/27/25 07:20
eGFR > 60.00 01/27/25 07:20
Glucose 135 mg/dl (70-99) H 01/27/25 07:20
Calcium 8.9 mg/dl (8.4-10.2) 01/27/25 07:20
Albumin Cancelled 01/26/25 10:25
Physical Exam
-
Vital Signs:
Vital Signs
Temp Pulse Resp BP Pulse Ox
97.3 F 94 18 140/63 93
01/27/25 07:20 01/27/25 11:42 01/27/25 11:42 01/27/25 07:20 01/27/25 11:42
Respiratory:: Bilateral: Coarse
Lung Excursion:: Normal
Abdomen:: Soft
Bowel Sounds:: Normal
Extremity Edema:: None: Bilateral:
--- NOTE | 2025-01-27 15:27 | W.DCSUMMARY ---
Discharge Summary
Discharge Data
Date of Admission: 01/26/25
Date of Discharge: 01/27/25
-
Pending Results: No
Hospital Course
Primary diagnoses:
Symptomatic Acute on Chronic Hyponatremia
Acute COPD Exacerbation, mild
Secondary diagnoses:
Chronic nocturnal hypoxia
Subdural Hematoma (October 2024)
Paroxysmal Atrial Fibrillation s/p Ablation Jun 2015
Essential Hypertension
GERD with Tejada's Esophagus
Prostate Cancer s/p Radiation Seeds
Consultants:
Nephrology
Imaging:
CT brain/C-spine: No acute intracranial abnormality. No acute abnormality within the cervical spine.
CXR: No radiographic evidence of acute cardiopulmonary abnormality.
74 y/o M who presented yesterday with a chief complaint of falls as outlined in the H&P, admission. Hospital course per problem was:
Symptomatic Acute on Chronic Hyponatremia: Sodium was 122 on admission. His hyponatremia was likely multifactorial and related to cerebral salt wasting following subdural hematoma, valproic acid use for seizure prophylaxis, and recently decreased
sodium tablet dosage. The dosing of the patient's sodium chloride tablets was increased back to 2 tabs TID. He was placed on a fluid restriction. His sodium improved from 122 to 130.
Acute COPD Exacerbation (mild): Pneumonia was ruled out. Patient was placed on prednisone 40mg Daily x 5 days.
Discharge Plan
-
Patient Disposition: Home (Routine Discharge)
Discharge Diagnosis/Procedures: Hyponatremia, mild acute COPD exacerbation
Condition: Good
Diet: Other diet
Additional Diets: Fluid restrict to 1400 cc/day
Activity: As tolerated
Driving Restrictions: Not until seen by your Dr
Blood Work: BMP in 3 days, script from PCP
Referrals:
Vivek Phillip, DO [Family Provider, [facility]] - in less than 1 week
Prescriptions:
New
prednisone 20 mg Tablet
40 mg PO DAILY Qty: 6 0RF
sodium chloride 1,000 mg Tablet,Soluble
2,000 mg PO TID Qty: 180 0RF
Continued
tamsulosin [Flomax] 0.4 MG capsule
0.4 mg PO DAILY@1200
Trelegy Ellipta 200-62.5-25 mcg Blister With Device
1 inh INHALATION R DAILY
omeprazole 40 mg Capsule,Delayed Release(Dr/Ec)
40 mg PO BID
acetaminophen [Tylenol Extra Strength] 500 mg Tablet
1,000 mg PO Q6HPRN PRN (Reason: mild pain)
albuterol sulfate 90 mcg/actuation HFA aerosol inhaler
2 puff INHALATION R Q6HPRN PRN (Reason: sob)
diltiazem HCl 180 mg Capsule,Extended Release 24 Hr
180 mg PO DAILY
valproic acid (as sodium salt) 250 mg/5 mL solution
625 mg PO BID
furosemide [Lasix] 20 mg Tablet
20 mg PO DAILY
valsartan 160 mg Tablet
160 mg PO DAILY
Discontinued
prednisone 10 mg Tablet
10 mg PO DIRECTED
Rx Instructions:
take 30mg daily for 3 day then 20mg daily for 2 days then 10mg daily for 3 days
sodium chloride 1 gram Tablet
1,000 mg PO TID
Discharge Orders:
Discharge Patient (As Directed); Ordered 01/27/25
Ordered By: Diego Khan
Discharge Date and Time
Discharge Date/Time: 01/27/25 13:23
Print Language: [id number]
== END 2025-01-27 13:23 | disposition home or self-care (01) | DRG 644 ==
LOC: 4 EAST ACU 14:47
PROVIDERS: Physician Assistant Medical; ADMITTING PHYSICIAN Hospitalist; ATTENDING PHYSICIAN Internal Medicine; CONSULT PHYSICIAN Internal Medicine Nephrology; EMERGENCY PHYSICIAN Emergency Medicine; FAMILY PHYSICIAN Family Medicine
PROC: 5A09357 Assistance with Respiratory Ventilation, Less than 24 Consecutive Hours, Continuous Positive Airway Pressure (ICD-10-PCS; 2025-01-26)
DX: E22.2 Syndrome of inappropriate secretion of antidiuretic hormone (principal); J96.11 Chronic respiratory failure with hypoxia; J43.9 Emphysema, unspecified; M54.2 Cervicalgia; I50.9 Heart failure, unspecified; I48.0 Paroxysmal atrial fibrillation; I11.0 Hypertensive heart disease with heart failure; E78.00 Pure hypercholesterolemia, unspecified; F17.200 Nicotine dependence, unspecified, uncomplicated; K21.9 Gastro-esophageal reflux disease without esophagitis; D45 Polycythemia vera; K22.70 Barrett's esophagus without dysplasia; W01.10XA Fall on same level from slipping, tripping and stumbling with subsequent striking against unspecified object, initial encounter; Y93.89 Activity, other specified; Y92.002 Bathroom of unspecified non-institutional (private) residence as the place of occurrence of the external cause; Z85.46 Personal history of malignant neoplasm of prostate; Z92.3 Personal history of irradiation; Z79.82 Long term (current) use of aspirin; Z79.51 Long term (current) use of inhaled steroids; Z88.8 Allergy status to other drugs, medicaments and biological substances; Z88.1 Allergy status to other antibiotic agents; Z79.52 Long term (current) use of systemic steroids
CPT/HCPCS: 51701; 51798; 70450; 71046; 72125; 80048; 81003; 81015; 83735; 83935; 84132; 84300; 85025; 93005; 94640; 96374; 96375; 97162; 97166; 99285

== ENCOUNTER → 2025-02-12 07:37 | Outpatient (REF) | payer OTHER, SELFPAY | LOC: HWRAD 07:37 | PROVIDERS: ATTENDING PHYSICIAN Nurse Practitioner Adult Health; FAMILY PHYSICIAN Family Medicine | DX: R91.8 Other nonspecific abnormal finding of lung field (principal) | CPT/HCPCS: 71250 ==

== ENCOUNTER 2025-06-12 09:15 | Inpatient (IN) | payer OTHER, SELFPAY ==
[2025-06-12] VITALS (10 sets, daily range): BP systolic 114–173; BP diastolic 56–83; BMI 25.9; BMI 25.4
--- NOTE | 2025-06-12 03:53 | ED.GENMED ---
History of Present Illness
<Claire Hopkins MD, Resident - Last Filed: 06/12/25 06:54>
General
Chief Complaint: Weakness
Source: patient and significant other
Exam Limitations: none
Time Seen by Provider: 06/12/25 03:38
Nursing documentation reviewed up to this point in time: agreed with
History of Present Illness
History of Present Illness:
74-year-old M with a history of COPD (on home O2 at night only), subdural hemorrhage, atrial fibrillation (s/p ablation), HTN, CHF, history of prostate/esophageal cancer and polycythemia vera (now in remission) who presents with worsening weakness
and dyspnea at home.
Yesterday morning, patient was in his normal state of health but began to feel weak, shaky, with malaise, 'goofy' mentation over the course of the day. He also began to develop a cough in the afternoon. No blood in sputum. He began to experience
dyspnea with mild physical activity around the home, requiring them to use his home O2 during the day. He typically only uses 1 L O2 at night for COPD. He also uses Trelegy inhaler daily and has an albuterol rescue inhaler. He had to use the
albuterol inhaler 2 times yesterday. A few hours ago, the patient was sitting in bed and slid off the side of the bed to the ground and was too weak to get back up. No loss of consciousness, no trauma to the head on fall. Patient and came to
the ED.
Patient denies feeling feverish at home but endorses chills and shakiness. Patient denies any nausea/vomiting, diarrhea, dysuria, swelling/pain of joints, abrasions to the skin, abdominal pain, chest pain, or recent sick contacts. His states
that she recently had gastroenteritis after eating old spaghetti, but patient never had these symptoms.
Past History
<Claire Hopkins MD, Resident - Last Filed: 06/12/25 06:54>
Past History
ED Past Medical History: Cancer (Prostate cancer with implant and radiation seeds.), HTN and Hypercholesterolemia
ED Past Surgical History: Cardiac (Ablation), Orthopedic (Rotator cuff surgery) and Other (Hernia repair)
Social History
Tobacco: Smoker
Alcohol: Daily (Beer 4 a day)
Personal:
Living: with family
Employment: Employed
Review of Systems
<Claire Hopkins MD, Resident - Last Filed: 06/12/25 06:54>
Review of Systems
All Other Systems: ROS reviewed and negative except as documented in HPI and ROS
Constitutional: Reports fatigue and chills
EENT: Reports no symptoms
Respiratory: Reports cough and trouble breathing
Cardiac: Reports no symptoms
ABD/GI: Reports no symptoms
: Reports no symptoms
Musculoskeletal: Reports no symptoms
Skin: Reports no symptoms
Neurological: Reports weakness
Psychiatric: Reports no symptoms
Phy Exam
<Claire Hopkins MD, Resident - Last Filed: 06/12/25 06:54>
General Physical Exam
General Presentation: no apparent distress
General age: appears stated age
General Skin: warm and dry
General Habitus: normal
General Mental: alert
Cardiovascular Exam
Cardiovascular Exam: regular rate/rhythm and no edema
Heart Sounds: normal
Pulmonary Exam
Pulmonary Exam: no respiratory distress and no wheezing
Gastrointestinal Exam
Gastrointestinal Exam: non tender, soft and non distended
Neurological Exam
Neurological Exam: alert
Musculoskeletal Exam
Musculoskeletal Exam: no edema
Skin Exam
Skin Exam: normal color and warm/dry
Psychiatric Exam
Psychiatric Exam: normal mood/affect
Sepsis
<Claire Hopkins MD, Resident - Last Filed: 06/12/25 06:54>
Sepsis Screening
Sepsis Assessment: Sepsis Ruled Out
Sepsis Screen
Sepsis Screen: Sepsis Ruled Out
Date: 06/12/25
Time: 06:54
Course
<Claire Hopkins MD, Resident - Last Filed: 06/12/25 06:54>
Orders/Labs/Results
Orders:
Orders
06/12/25 03:37
Electrocardiogram (*1) Urgent
Reason for Study: Other
Other Reason for Exam: Possible Sepsis
Cardiac Monitoring- Treatment ONCE
IV Insert/Care/Rem.- Treatment PRN
O2 Therapy [RESP] Urgent
Titrate/Wean O2 to maintain O2 sat greater than (%): 93
Special Instructions: TO MAINTAIN CONTINUOUS O2 SATS > OR = 93%
Pulse Ox/cont/shift [RESP] Urgent
Quantity: 1
Special Instructions: CONTINUOUS
06/12/25 03:38
EKG- Treatment ONCE
06/12/25 03:53
CR Chest - 2 Views Urgent
Comment:
Reason For Exam: cough
06/12/25 04:13
0.9% Sodium Chloride 500 ml [Nss] 500 ml IV BOLUS
06/12/25 04:29
Basic Metabolic Panel Urgent
COVID-19 Antigen Urgent
Source: Nasal Swab
Complete Blood Count/With Diff Urgent
Influenza A+B Rapid Molecular Urgent
LAURITA Source: Nasal Swab
Specimen Description:
06/12/25 04:34
Urinalysis Reflex To Culture Urgent
Date Specimen was Collected: 06/12/25
Time Specimen was Collected: 04:33
Urine Microscopic Reflex Cult Urgent
06/12/25 04:45
Acetaminophen [Tylenol] 1,000 mg PO NOW STA
06/12/25 04:46
Lactic Acid Q4H
Comment: ON ICE, CANCEL 2ND ORDER IF FIRST LACTIC ACID LEVEL <2
Blood Culture Q20M
LAURITA Source: Blood/Venous
Specimen Description:
Comment: Urgent from separate sites. If patient screens positive for possible sepsis
06/12/25 04:55
Blood Culture Q20M
LAURITA Source: Blood/Venous
Specimen Description:
Comment: Urgent from separate sites. If patient screens positive for possible sepsis
Abnormal Lab Results
06/12/25 06/12/25
04:29 04:34
WBC 12.1 H 10^3/uL
(4.8-10.8)
RBC 4.13 L 10^6/uL
(4.70-6.10)
Hgb 12.9 L g/dL
(13.0-18.0)
Hct 38.2 L %
(39.0-52.0)
MCH 31.2 H pg
(27.0-31.0)
Abs Immat Gran (auto) 0.1 H 10^3/uL
(0-0.05)
Absolute Neuts (auto) 10.5 H 10^3/uL
(1.4-6.5)
Absolute Lymphs (auto) 0.6 L 10^3/uL
(1.2-3.4)
Absolute Monos (auto) 0.8 H 10^3/uL
(0.1-0.6)
Immature Gran % 0.7 H %
(0-0.5)
Neutrophils % 86.8 H %
(42.2-75.2)
Lymphocytes % 4.8 L %
(20.5-51.1)
Sodium 134 L mmol/L
(135-145)
Creatinine 0.5 L mg/dL
(0.7-1.3)
Glucose 116 H mg/dl
(70-99)
Ur Occult Blood Reflex 2+ A
(Negative)
Urine RBC 7-10 A /HPF
(0-2)
Urine Bacteria (Reflex) Few A
(Negative)
Urine Albumin (Reflex) 2+ A
(Neg - Trace)
06/12/25 04:29
06/12/25 04:29
Vital Signs
Initial and Last Documented VS:
Initial Vital Signs
Pulse Resp BP Pulse Ox
117 23 173/83 86
06/12/25 03:35 06/12/25 03:35 06/12/25 03:35 06/12/25 03:35
Last Documented Vital Signs
Temp Pulse Resp BP Pulse Ox
100.3 F 112 26 169/83 87
06/12/25 05:52 06/12/25 04:00 06/12/25 04:00 06/12/25 04:00 06/12/25 03:56
<Mya Rubin, DO - Last Filed: 06/12/25 06:30>
Orders/Labs/Results
Orders:
Orders
06/12/25 03:37
Electrocardiogram (*1) Urgent
Reason for Study: Other
Other Reason for Exam: Possible Sepsis
Cardiac Monitoring- Treatment ONCE
IV Insert/Care/Rem.- Treatment PRN
O2 Therapy [RESP] Urgent
Titrate/Wean O2 to maintain O2 sat greater than (%): 93
Special Instructions: TO MAINTAIN CONTINUOUS O2 SATS > OR = 93%
Pulse Ox/cont/shift [RESP] Urgent
Quantity: 1
Special Instructions: CONTINUOUS
06/12/25 03:38
EKG- Treatment ONCE
06/12/25 03:53
CR Chest - 2 Views Urgent
Comment:
Reason For Exam: cough
06/12/25 04:13
0.9% Sodium Chloride 500 ml [Nss] 500 ml IV BOLUS
06/12/25 04:29
Basic Metabolic Panel Urgent
COVID-19 Antigen Urgent
Source: Nasal Swab
Complete Blood Count/With Diff Urgent
Influenza A+B Rapid Molecular Urgent
LAURITA Source: Nasal Swab
Specimen Description:
06/12/25 04:34
Urinalysis Reflex To Culture Urgent
Date Specimen was Collected: 06/12/25
Time Specimen was Collected: 04:33
Urine Microscopic Reflex Cult Urgent
06/12/25 04:45
Acetaminophen [Tylenol] 1,000 mg PO NOW STA
06/12/25 04:46
Lactic Acid Q4H
Comment: ON ICE, CANCEL 2ND ORDER IF FIRST LACTIC ACID LEVEL <2
Blood Culture Q20M
LAURITA Source: Blood/Venous
Specimen Description:
Comment: Urgent from separate sites. If patient screens positive for possible sepsis
06/12/25 04:55
Blood Culture Q20M
LAURITA Source: Blood/Venous
Specimen Description:
Comment: Urgent from separate sites. If patient screens positive for possible sepsis
Abnormal Lab Results
06/12/25 06/12/25
04:29 04:34
WBC 12.1 H 10^3/uL
(4.8-10.8)
RBC 4.13 L 10^6/uL
(4.70-6.10)
Hgb 12.9 L g/dL
(13.0-18.0)
Hct 38.2 L %
(39.0-52.0)
MCH 31.2 H pg
(27.0-31.0)
Abs Immat Gran (auto) 0.1 H 10^3/uL
(0-0.05)
Absolute Neuts (auto) 10.5 H 10^3/uL
(1.4-6.5)
Absolute Lymphs (auto) 0.6 L 10^3/uL
(1.2-3.4)
Absolute Monos (auto) 0.8 H 10^3/uL
(0.1-0.6)
Immature Gran % 0.7 H %
(0-0.5)
Neutrophils % 86.8 H %
(42.2-75.2)
Lymphocytes % 4.8 L %
(20.5-51.1)
Sodium 134 L mmol/L
(135-145)
Creatinine 0.5 L mg/dL
(0.7-1.3)
Glucose 116 H mg/dl
(70-99)
Ur Occult Blood Reflex 2+ A
(Negative)
Urine RBC 7-10 A /HPF
(0-2)
Urine Bacteria (Reflex) Few A
(Negative)
Urine Albumin (Reflex) 2+ A
(Neg - Trace)
06/12/25 04:29
06/12/25 04:29
Vital Signs
Initial and Last Documented VS:
Initial Vital Signs
Pulse Resp BP Pulse Ox
117 23 173/83 86
06/12/25 03:35 06/12/25 03:35 06/12/25 03:35 06/12/25 03:35
Last Documented Vital Signs
Temp Pulse Resp BP Pulse Ox
100.3 F 112 26 169/83 87
06/12/25 05:52 06/12/25 04:00 06/12/25 04:00 06/12/25 04:00 06/12/25 03:56
<Claire Hopkins MD, Resident - Last Filed: 06/12/25 06:54>
MDM/Problems Addressed
Differential Diagnosis Includes:
Meets SIRS criteria for sepsis�infectious etiology most likely due to respiratory infection given new cough and dyspnea
Viral (COVID, flu) vs. CAP bacterial pneumonia
Infection likely triggering COPD exacerbation
Dyspnea unlikely secondary to PE given fever and cough
Other infectious sources include UTI, gastrointestinal�both unlikely given patient clinical presentation and lack of symptoms
MDM/Problems Addressed:
- 500cc NSS
- Blood cultures x 2
- CBC/CMP
- CXR
- COVID, flu
- UA with reflex to culture
- EKG
- Likely add azithromycin for infection plus COPD flare
- Consider DuoNebs +/- prednisone if respiratory status worsens
<Claire Hopkins MD, Resident - Last Filed: 06/12/25 06:54>
*Pulse Oximetry
SaO2: 87
Oxygen Mode of Delivery: Room air
Patient hypoxic: yes
*Critical Care Note
Total Time (30-74mins, 75-104mins- exclusive of procedures): Not Applicable
<Claire Hopkins MD, Resident - Last Filed: 06/12/25 06:54>
Update Note
Update Note:
6:30am
CXR with some haziness, likely representing PNA
COVID, flu negative
Will give ceftriaxone & azithromycin and plan to admit
ED Attending Note
<Claire Hopkins MD, Resident - Last Filed: 06/12/25 06:54>
-
Portions of this chart may have been created with voice recognition software.� Occasional wrong word or��sound alike� substitutions may have occurred due to the inherent limitations of voice recognition software.
<Mya Rubin DO - Last Filed: 06/12/25 06:30>
ED Attending Note
Patient seen and examined by attending physician: Yes
I performed the substantive portion of visit, reviewed & personally made and approve the management plan that is documented in note by myself or DIOGO.: Yes
I performed a history and physical exam of patient and discussed management with resident, I reviewed resident's note and agree with documented findings and plan of care.: Yes
ED Attending Note:
74-year-old male with history of COPD, hypertension, CHF, esophageal cancer in remission presenting to the emergency department for generally feeling weak and short of breath. Patient reports symptoms started yesterday. In the morning and
throughout the afternoon initially felt fine, however as the evening progressed, started to feel weak and shaky with chills and malaise. Also reports cough. He is usually on 1 L of oxygen overnight, however was feeling particularly short of breath
prior to arrival, which prompted him to come to the hospital. He has also required increased use of his inhaler. Patient noted to be high by the medics prior to arrival. Denies any known sick contacts. He was supposed to get an endoscopy today
for routine screening from a prior esophageal cancer.
Vital signs on arrival significant for fever and tachycardia. On exam patient is in no acute distress, however does appear slightly dry mucous membranes. No significant increased work of breathing, with oxygenation stable on 2 L nasal cannula.
Mild rhonchi bilaterally. In the setting of fever, malaise, cough, concern for infection. Vital signs meeting criteria for SIRS. Suspected source at this time is pulmonary. Plan for laboratory analysis, lactic cultures, chest x-ray, viral swabs.
Will start gentle fluid hydration given known history of CHF. Tylenol administered for fever.
05:30 - Labs show leukocytosis infection. Normal lactic acid. No current criteria for severe sepsis or septic shock. Will continue IV fluids as clinically indicated. COVID and flu negative. Pending x-ray
06:30 -x-ray shows concern for pneumonia. Will start patient on antibiotics for community-acquired. Plan for admission given fatigue, weakness, pneumonia with increased oxygen requirements.
Discharge Plan
Departure
Patient Disposition: Admit
Date of Disposition: 06/12/25
Time of Disposition: 06:54
Admit to doctor: Heriberto
Presentation/result/management discussed w/ accepting MD/DO: Hospitalist
Patient with high blood pressure during this ER visit?: Yes
Condition: Good
Covid-19: Negative COVID-19
Discharge Problem:
Pneumonia, Acute exacerbation of chronic obstructive pulmonary disease
Prescriptions:
No Action
tamsulosin [Flomax] 0.4 MG capsule
0.4 mg PO DAILY@1200
Trelegy Ellipta 200-62.5-25 mcg Blister With Device
1 inh INHALATION R DAILY
omeprazole 40 mg Capsule,Delayed Release(Dr/Ec)
40 mg PO BID
acetaminophen [Tylenol Extra Strength] 500 mg Tablet
1,000 mg PO Q6HPRN PRN (Reason: mild pain)
albuterol sulfate 90 mcg/actuation HFA aerosol inhaler
2 puff INHALATION R Q6HPRN PRN (Reason: sob)
diltiazem HCl 180 mg Capsule,Extended Release 24 Hr
180 mg PO DAILY
valproic acid (as sodium salt) 250 mg/5 mL solution
625 mg PO BID
furosemide [Lasix] 20 mg Tablet
20 mg PO DAILY
valsartan 160 mg Tablet
160 mg PO DAILY
prednisone 20 mg Tablet
40 mg PO DAILY Qty: 6 0RF
sodium chloride 1,000 mg Tablet,Soluble
2,000 mg PO TID Qty: 180 0RF
Referrals:
Vivek Phillip DO [Family Provider, Family Practice]
Interventions
Interventions:
*Risk Screen - Suicide Last Done: 06/12/25 03:39
*General Assessment Last Done: 06/12/25 03:39
*Neglect/Abuse Screening Last Done: 06/12/25 03:39
*ED COVID-19 Vaccine History Last Done: 06/12/25 03:39
*ED Influenza Vaccine History Last Done: 06/12/25 03:39
[facility] Risk Assessment Tool Last Done: 06/12/25 04:00
ED- Cardiac Assessment Last Done: 06/12/25 03:50
ED- Neurological Assessment Last Done: 06/12/25 03:50
ED- Pulmonary Assessment Last Done: 06/12/25 03:50
Discharge Date and Time
Print Language: THAI
[2025-06-12 04:43] LABS: Urine Character Clear (Clear)
[2025-06-12 04:46] LABS: Hematocrit 38.2 % (39.0-52.0); Hemoglobin 12.9 g/dL (13.0-18.0); Mean Corp Hgb Conc. 33.8 g/dL (33.0-37.0); Mean Corpuscular Volume 92.5 fL (80.0-94.0); Nucleated Red Blood Cells % 0 % (-); Platelet Count 185 10^3/uL (130-400); Red Cell Dist. Width 12.7 % (11.5-14.5)
[2025-06-12] MEDS: TYLENOL 1000 MG PO ×4 (04:57→22:17)
[2025-06-12 04:59] LABS: COVID-19 Antigen Negative (Negative)
[2025-06-12] MEDS: NSS 500 IV (05:00)
[2025-06-12 05:14] LABS: Blood Urea Nitrogen 13 mg/dl (9-20); Calcium 9.0 mg/dl (8.4-10.2); Carbon Dioxide 29 mmol/L (22-30); Chloride 99 mmol/L (98-107); Estimated Creatinine Clearance 117 ml/min; Glucose 116 mg/dl (70-99); Sodium 134 mmol/L (135-145); eGFR > 60.00
[2025-06-12 05:16] LABS: Urine White Cell 0-2 /HPF (0-5)
[2025-06-12] MEDS: ROCEPHIN 1000 MG IV (06:49)
[2025-06-12] MEDS: ZITHROMAX INFUSION 250 IV (07:01)
--- NOTE | 2025-06-12 08:47 | HPS.HSE ---
Family Physician
-
Family Physician: Vivek Phillip
Chief Complaint
-
Fever with shortness of breath
History of Present Illness
74 years old male presented with fever, weakness and mild cough. Patient reported that his symptoms mainly started over 24 hours. He uses 1 L of oxygen at nighttime. He was hypoxic in the ER and was given oxygen 2 to 3 L. Patient was scheduled
to go for annual screening EGD for history of esophageal cancer but felt weak and he was getting sick with fever. No syncopal episode. No chest pain. He reported chills.
in the ER, he was found to have leukocytosis. Negative COVID and influenza screen. chest x-ray showed bibasilar opacities with possible developing pneumonia.
Medical History
Past Medical History
Past Medical History: Reports Other (Gout, COPD, A-fib, polycythemia, sleep apnea, esophageal cancer, hypertension, prostate cancer, Tejada's esophagus, hyperlipidemia, cerebral amyloid, subdural hematoma, hyponatremia.)
Past Surgical History: Reports Other (No recent major surgery)
Social History
Tobacco: Former Smoker
Alcohol: None
Drug: None
Personal:
Living: With Family
Employment: Retired
Family History
Family History: Other (Father had emphysema, mother had lung cancer)
Allergies / Home Medications
Allergies reflects when Allergies were last updated in [facility].
Home Medications with original date entered in [facility]
Allergy/Medication List:
Allergies
Allergy/AdvReac Type Severity Reaction Status Date / Time
doxycycline Allergy Hives Verified 06/12/25 03:38
lisinopril Allergy cough Verified 06/12/25 03:38
Home Medications
fluticasone fur. 200 mcg-umeclid 62.5 mcg-vilant 25 mcg inhalat.powder (Trelegy Ellipta) 1 inh inhalation R DAILY Lung/Breathing Issues 08/07/22
omeprazole 40 mg capsule,delayed release 40 mg PO BID GERD 10/29/23
albuterol sulfate 90 mcg/actuation aerosol inhaler 2 puff inhalation R Q6HPRN PRN sob 10/06/24
diltiazem HCl 180 mg capsule,24 hr,extended release 180 mg PO DAILY 01/26/25
furosemide 20 mg tablet (Lasix) 20 mg PO DAILY 01/26/25
valsartan 160 mg tablet 160 mg PO DAILY 01/26/25
sodium chloride 1,000 mg soluble tablet 2,000 mg (2 x 1,000 mg) PO TID #180 tabs 01/27/25
azithromycin 250 mg tablet 250 mg PO MOWEFR 06/12/25
tamsulosin 0.4 mg capsule 0.4 mg PO BID 06/12/25
valproic acid (as sodium salt) 250 mg/5 mL oral solution 625 mg PO BID 06/12/25
Review of Systems
-
History Source: Patient
A 12 point ROS was completed and negative except as noted: Yes
Constitutional: Reports Fever, Fatigue and Chills
EENT: Denies Sore Throat
Respiratory: Reports Cough and Trouble Breathing
Cardiac: Denies Chest Pain
Abdomen/GI: Denies Abdominal Pain
: Denies Dysuria
Musculoskeletal: Denies Joint Pain or Edema
Skin: Denies Itching or Rash
Neurological: Denies Numbness
Hematologic/Lymphatic: Denies Bruising
Psych: Denies Panic Disorder
Physical Exam
Vital Signs
Vital Signs
Temp Pulse Resp BP Pulse Ox
100.3 F 96 20 134/71 92
06/12/25 05:52 06/12/25 08:00 06/12/25 08:00 06/12/25 08:00 06/12/25 08:00
Physical Exam
General: Conversant, Fever and Appears Chronically Ill
HEENT: Moist mucous membranes and Atraumatic
Respiratory: Rales and Decreased Breath Sounds
Cardiac: S1/S2 and Tachycardia
GI: Soft and Non Tender
Genito-urinary: No Chen
Musculoskeletal: No Clubbing, No Cyanosis and No Edema
Skin: Warm and Dry
Neuro: AO x 3 and Nonfocal/grossly intact
Psych: Calm and Intact Judgment/Insight
Laboratory Results
-
06/12/25 04:29
06/12/25 04:29
Laboratory Results
Lactic Acid Cancelled 06/12/25 07:45
Total Bilirubin Cancelled 06/12/25 04:29
AST Cancelled 06/12/25 04:29
ALT Cancelled 06/12/25 04:29
Alkaline Phosphatase Cancelled 06/12/25 04:29
Impression/Plan
-
74 years old male presented with cough, shortness of breath and fever
#Community-acquired pneumonia/acute on chronic hypoxic respiratory failure requiring 3 L of oxygen. Used 1 L of oxygen at home. Known COPD. 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 Traylor.
Patient presented with leukocytosis, fever, hypoxia, tachycardia. He meets criteria of sepsis POA
Admit the patient to the hospital.
Negative COVID and influenza. Negative lactic acidosis
Follow-up with the blood culture
Empiric IV antibiotic
Oral Tylenol for fever to avoid tachycardia
Continue with breathing treatment and oxygen supplementation
Consult pulmonary
Subdural Hematoma - October 2024
-Continue valproic acid for seizure for prophylaxis
He is not on systemic anticoagulation because of that
Paroxysmal Atrial Fibrillation s/p Ablation Jun 2015
Sinus tachycardia present on admission due to fever.
-Patient no longer on anticoagulation following subdural
-Continue diltiazem for rate control.
Essential Hypertension
-Continue diltiazem and valsartan
No hypotension.
chronic hyponatremia/SIADH
Patient follows with nephrology at [place].
Continue with Lasix and oral sodium chloride tablets. Continue with regular diet
GERD / Tejada's Esophagus
-Continue PPI.
Patient is scheduled to have screening EGD today by Dr. Espinal. Will reach out to Dr. Espinal to update him about this admission
Hx Prostate Cancer s/p Radiation Seeds
-Continue Flomax
DVT proph: Subcu heparin
Code Status: Full Code
Total time spent to see the patient, examined the patient, review data and lab results, discuss treatment plan with patient, his , pulmonary doctor, ER doctor, nursing staff around 75 minutes
--- NOTE | 2025-06-12 11:04 | CON.PUL ---
Consultation
Consultation Request
Date/Time Consultation Requested: 06/12/2025-10 AM
Date/Time Consultation Performed: 06/12/2025-10:30 AM
Requesting Provider: Hospitalist
Performing Provider: Dr. Pompa
Reason for Consultation: Pneumonia/COPD
Medical History
-
Chief Complaint: Shortness of breath
History of Present Illness:
74-year-old former smoking male with underlying COPD followed by Dr. Traylor , atrial fibrillation, polycythemia, sleep apnea, hypertension, prostate cancer, Tejada's esophagus, subdural hematoma, gallops, presented with fevers, weakness and mild
cough, found to be hypoxemic and admitted with pneumonia/COPD-pulmonary siebel consultant for pneumonia and shortness of breath. 06/12/25. The patient states that he is feeling improved. He has a mild cough. It is nonproductive. He had some fevers at
home but no longer has fevers. He denies chest pain, chest tightness, pleurisy, hemoptysis, abdominal pain, leg swelling, and he denies any focal weakness.
Past Medical History
Past Medical History: None ( COPD. Atrial fibrillation. Polycythemia. CATE. Esophageal cancer. GERD. Tejada's esophagus. Hypertension. Gout. Prostate cancer. Hyperlipidemia. Cerebral amyloid. Subdural hematoma.)
Social History
Tobacco: Former Smoker ( 51-ofas-ohwi-quit 2018)
Alcohol: None
Drug: None
Personal:
Living: With Family
Occupational Exposures: No known asbestos exposure
Environmental Exposures: No known tuberculosis exposure
Family History
Family History: Reviewed & Not Pertinent ( Father-COPD and lung cancer. Mother-lung cancer.)
Allergies / Home Medications
Allergies
Allergy/AdvReac Type Severity Reaction Status Date / Time
doxycycline Allergy Hives Verified 06/12/25 03:38
lisinopril Allergy cough Verified 06/12/25 03:38
Home Medications
�Medication �Instructions �Recorded �Confirmed �Last Taken �Type
fluticasone fur. 200 mcg-umeclid 1 inh inhalation R DAILY 08/07/22 06/12/25 01/26/25 History
62.5 mcg-vilant 25 mcg Lung/Breathing Issues
inhalat.powder (Trelegy Ellipta)
omeprazole 40 mg capsule,delayed 40 mg PO BID GERD 10/29/23 06/12/25 01/26/25 History
release
albuterol sulfate 90 mcg/actuation 2 puff inhalation R Q6HPRN PRN sob 10/06/24 06/12/25 01/25/25 History
aerosol inhaler
diltiazem HCl 180 mg capsule,24 180 mg PO DAILY 01/26/25 06/12/25 01/26/25 History
hr,extended release
furosemide 20 mg tablet (Lasix) 20 mg PO DAILY 01/26/25 06/12/25 01/26/25 History
valsartan 160 mg tablet 160 mg PO DAILY 01/26/25 06/12/25 01/26/25 History
sodium chloride 1,000 mg soluble 2,000 mg (2 x 1,000 mg) PO TID 01/27/25 06/12/25 Unknown Rx
tablet #180 tabs
azithromycin 250 mg tablet 250 mg PO MOWEFR 06/12/25 06/12/25 Unknown History
tamsulosin 0.4 mg capsule 0.4 mg PO BID 06/12/25 06/12/25 Unknown History
valproic acid (as sodium salt) 250 625 mg PO BID 06/12/25 06/12/25 06/12/25 02:00 History
mg/5 mL oral solution
Review of Systems
-
Unable to Obtain full review of systems at this time due to: Other (Per HPI)
Vitals / Labs / Diagnostic Testing
Vital Signs
Temp Pulse Resp BP Pulse Ox
100.3 F 95 20 144/81 93
06/12/25 05:52 06/12/25 10:00 06/12/25 10:00 06/12/25 10:00 06/12/25 10:00
Lab Data
06/12/25 04:29
06/12/25 04:29
Microbiology
06/12/25 04:29 Nasal Swab Influenza Types A & B (DUNIA) - Final
Negative for Influenza A & B, NAAT
Negative results must be combined with clinical observations
and patient history.
Nucleic Acid Amplification test (NAAT)performed on the
[employer] platform.
Diagnostic Testing:
Physical Exam
-
Exam:
well-nourished and well-developed in no apparent distress
HEENT-atraumatic, normocephalic
Neck-supple, no JVD, no bruit
Heart-regular rate and rhythm-no murmurs, rubs or gallops
Chest with diminished breath sounds, prolonged expiratory time, forced wheezes and rare right basilar crackle
Back-no tenderness
Abdomen-soft, nontender, nondistended, no hepatosplenomegaly
Extremities-no cyanosis, clubbing, trace lower extremity edema
Integument-intact, no rashes, lesions or ecchymosis
Neurology-alert and oriented, nonfocal motor and sensory exam
Assessment
-
74-year-old former smoking male with underlying COPD followed by Dr. Traylor , atrial fibrillation, polycythemia, sleep apnea, hypertension, prostate cancer, Tejada's esophagus, subdural hematoma, gallops, presented with fevers, weakness and mild
cough, found to be hypoxemic and admitted with pneumonia/COPD-pulmonary siebel consultant for pneumonia and shortness of breath. 06/12/25.
Community acquired pneumonia.
COPD with acute exacerbation.
Leukocytosis.
Normocytic anemia-hemoglobin 12.9.
Mild hyponatremia.
Hyperglycemia
Conditions present prior to admission:
COPD.
Eosinophilia
Pulmonary nodule
Atrial fibrillation.
Polycythemia.
Cardiomyopathy
CATE.
Esophageal cancer.
GERD.
Tejada's esophagus.
Hypertension.
Gout.
Prostate cancer.
Hyperlipidemia.
Cerebral amyloid.
Subdural hematoma...
History of multiple concussions
Family history of pulmonary embolism.
Family history of COPD and lung cancer
Prostate biopsy. TURP. Cardiac ablation 2015. Right inguinal hernia repair. Tonsillectomy. Mohs surgery. Esophageal ablation.
Plan
Acute decompensation likely related to community acquired pneumonia in a patient with underlying COPD-which is moderate to severe with 40%, FEV1 and 43%, DLCO
Radiographs, pulmonary function testing, sleep studies and cardiac workup summarized below
Supplemental oxygen as needed.
Home O2 assessment.
Patient sleeps with 2 L of oxygen at night.
Known CATE-declined CPAP-on nocturnal oxygen 2 L in, positional therapy.
Nebulizers as needed.
Aspiration precautions.
Mucolytic's
Check cultures.
Empiric antibiotics-ceftriaxone initiated.
Add atypical coverage.
Follows with Dr. Frazier for phlebotomy for his polycythemia vera.
DVT prophylaxis-on heparin.
GI prophylaxis-on pantoprazole.
Nutrition
Early mobilization
Dr. Pompa reviewed with at the bedside 06/12/2025
Patient last saw Dr. Traylor last week-Maintained on 2 L nocturnal oxygen, discussed [place] valves-patient was not excited about pursuing, Declined CPAP use for CATE, discussed potential need for transplant evaluation, presumed lung cancer screening
CT February 2026
Diagnostic data:
Chest x-ray 06/12/25-hazy bibasilar opacifications, left greater than right
CT chest 02/12/25: Scattered nodules, overall less prominent than prior imaging.� Evidence of centrilobular emphysema.� Largest nodule appears to be about 5 mm.� Prior left lower lobe and right upper lobe infiltrate appears to be improved
CT chest 11/29/24: Scattered nodules bilaterally, new area of irregular nodules left lower lobe and right upper lobe largest 6-7 mm
PFT 02/27/25: FVC 2.95/74%,FEV1 1.15/39%, ratio 51.� TLC 5.42/76%, DLCO 10.90/43%.� Severe obstruction, mild resection with severe gas exchange defect
6MWT 10/27/24: RA 94%, PRAVEEN 89% on RA. Hr 63-111bpm. Dyspnea index 0/10
6MWT 02/15/24: Total distance 950 feet, desaturation Nadirr 89% on room air, heart rate 123, dyspnea scale 2/10
HST 03/2024-moderate CATE, AHI 16.1, 91.1 min spent with O2 <89%
Echo 12/06/24: normal biventricular function, right heart pressures could not be determined
Data Reviewed
-
PFT: Report reviewed by me
EKG: Report reviewed by me
Radiology: Image personally visualized and interpreted and Report reviewed by me
CT Scan: Report reviewed by me
Medical Tests (Nuc Med, Echo etc): Report reviewed by me
Labs: Labs reviewed by me
Old Records: Reviewed
Total Time Spent with Patient (in minutes): 55
[2025-06-12] MEDS: FLOMAX 0.4 MG PO ×2 (11:26→20:48)
[2025-06-12] MEDS: DIOVAN 160 MG PO (11:26)
[2025-06-12] MEDS: SODIUM CHLORIDE 2 GRAM PO ×3 (11:29→22:19)
[2025-06-12] MEDS: CARDIZEM CD 180 MG PO (11:29)
[2025-06-12] MEDS: PROTONIX 40 MG PO ×2 (11:29→20:48)
[2025-06-12] MEDS: DEPAKENE 625 MG PO ×2 (11:51→22:15)
[2025-06-12] MEDS: DUONEB 3 ML INH ×2 (14:33→21:10)
[2025-06-12] MEDS: MUCINEX 600 MG PO (20:49)
[2025-06-13 07:00] VITALS: BP 137/70
[2025-06-13] MEDS: DUONEB 3 ML INH ×3 (07:29→19:32)
[2025-06-13] MEDS: PROTONIX 40 MG PO ×2 (08:59→20:54)
[2025-06-13] MEDS: MUCINEX 600 MG PO ×2 (08:59→20:54)
[2025-06-13] MEDS: DIOVAN 160 MG PO (08:59)
[2025-06-13] MEDS: FLOMAX 0.4 MG PO ×2 (08:59→20:54)
[2025-06-13] MEDS: TYLENOL 1000 MG PO (09:00)
[2025-06-13] MEDS: CARDIZEM CD 180 MG PO (09:00)
[2025-06-13] MEDS: LASIX 20 MG PO (09:00)
[2025-06-13] MEDS: SODIUM CHLORIDE 2 GRAM PO ×3 (09:01→22:00)
[2025-06-13] MEDS: DEPAKENE 625 MG PO ×2 (09:01→20:57)
--- NOTE | 2025-06-13 09:02 | W.PN.HOSP.TC ---
Today's Communication/Plan
-
.
Assessment / Plan
Assessment / Plan
Physical Exam
General: Conversant, comfortable, better looking with no distress
HEENT: Moist mucous membranes and Atraumatic
Respiratory: better exam today, no rales or wheezes heard.
Cardiac: S1/S2 and Tachycardia
GI: Soft and Non Tender
Genito-urinary: No Chen
Musculoskeletal: No Clubbing, No Cyanosis and No Edema
Skin: Warm and Dry
Neuro: AO x 3 and Nonfocal/grossly intact
Psych: Calm and Intact Judgment/Insight
74 years old male presented with cough, shortness of breath and fever
#Community-acquired pneumonia/acute on chronic hypoxic respiratory failure requiring 3 L of oxygen. Used 1 L of oxygen at home. Known COPD. Primary watch inspector Dr. Traylor.
Patient presented with leukocytosis, fever, hypoxia, tachycardia. He meets criteria of sepsis POA
He feels better ( I feel back to normal)
c/w IV Abx for another two doses, c/w breathing treatments
Blood culture NGTS
On cough medicine
d/w pt, he wants to leave tomorrow in AM so his has cardiac procedure and wants to be with her. Im ok with dc if afebrile in next 24 hours.
Negative COVID and influenza. Negative lactic acidosis
Oral Tylenol for fever to avoid tachycardia, will change it to PRN
Continue with breathing treatment and oxygen supplementation
Appreciate pulmonary help , primary pulmonary Dr Traylor.
Subdural Hematoma - October 2024
-Continue valproic acid for seizure for prophylaxis
He is not on systemic anticoagulation because of that
Paroxysmal Atrial Fibrillation s/p Ablation Jun 2015
Sinus tachycardia present on admission due to fever.
-Patient no longer on anticoagulation following subdural
-Continue diltiazem for rate control.
Essential Hypertension
-Continue diltiazem and valsartan
No hypotension.
chronic hyponatremia/SIADH
Patient follows with nephrology at [facility] [place].
Continue with Lasix and oral sodium chloride tablets. Continue with regular diet
GERD / Tejada's Esophagus
-Continue PPI.
Patient is scheduled to have screening EGD 06/[address] Espinal received TT.
Hx Prostate Cancer s/p Radiation Seeds
-Continue Flomax
DVT proph: Subcu heparin
Code Status: Full Code
Total time spent to see the patient, examined the patient, review data and lab results, discuss treatment plan with patient, nursing staff around 56 minutes
Anticipated Discharge: Within 24 hours
Subjective/Interval History
-
Date of Service: June 13, 2025
Less cough
No chest pain or sob
Objective Data
-
Vital Signs:
Vital Signs
Temp Pulse Resp BP Pulse Ox
99.8 F 80 18 137/70 95
06/13/25 07:00 06/13/25 07:31 06/13/25 07:31 06/13/25 07:00 06/13/25 07:31
I&O
06/12/25 06/13/25 06/14/25
06:59 06:59 06:59
Output Total 820 / 820
Balance -820 / -820
[2025-06-13] MEDS: ROCEPHIN 2000 MG IV (09:11)
[2025-06-13] MEDS: STERILE WATER FOR INJECTION 20 ML IV (09:11)
[2025-06-13 09:49] LABS: Hematocrit 36.0 % (39.0-52.0); Hemoglobin 12.3 g/dL (13.0-18.0); Mean Corp Hgb Conc. 34.2 g/dL (33.0-37.0); Mean Corpuscular Volume 94.7 fL (80.0-94.0); Platelet Count 154 10^3/uL (130-400); Red Cell Dist. Width 12.7 % (11.5-14.5)
[2025-06-13 10:39] LABS: Blood Urea Nitrogen 21 mg/dl (9-20); Calcium 8.8 mg/dl (8.4-10.2); Carbon Dioxide 29 mmol/L (22-30); Chloride 98 mmol/L (98-107); Estimated Creatinine Clearance 100 ml/min; Glucose 111 mg/dl (70-99); Potassium 3.6 mmol/L (3.5-5.1); Sodium 135 mmol/L (135-145); eGFR > 60.00
--- NOTE | 2025-06-13 10:52 | W.PN.PUL.V3 ---
Today's Communication / Plan
-
.
We not seen
Increased activity.
Finite course of antibiotics.
Prednisone if wheezing returns
Assessment
-
74-year-old former smoking male with underlying COPD followed by Dr. Traylor , atrial fibrillation, polycythemia, sleep apnea, hypertension, prostate cancer, Tejada's esophagus, subdural hematoma, gallops, presented with fevers, weakness and mild
cough, found to be hypoxemic and admitted with pneumonia/COPD-pulmonary vocational rehab consultant for pneumonia and shortness of breath. 06/12/25.
Community acquired pneumonia.
COPD with acute exacerbation.
Leukocytosis.
Normocytic anemia-hemoglobin 12.9.
Mild hyponatremia.
Hyperglycemia
Conditions present prior to admission:
COPD.
Eosinophilia
Pulmonary nodule
Atrial fibrillation-ablation October 2024
Polycythemia.
Cardiomyopathy
CATE.
Esophageal cancer.
GERD.
Tejada's esophagus.
Hypertension.
Gout.
Prostate cancer.
Hyperlipidemia.
Cerebral amyloid.
Subdural hematoma-October 2024-on valproic acid for seizure prophylaxis
History of multiple concussions
Family history of pulmonary embolism.
Family history of COPD and lung cancer
Prostate biopsy. TURP. Cardiac ablation 2014. Right inguinal hernia repair. Tonsillectomy. Mohs surgery. Esophageal ablation.
Plan
Acute decompensation likely related to community acquired pneumonia in a patient with underlying COPD-which is moderate to severe with 40%, FEV1 and 43%, DLCO
Radiographs, pulmonary function testing, sleep studies and cardiac workup summarized below
Supplemental oxygen as needed-currently on 2 L
Home O2 assessment.
Patient sleeps with 2 L of oxygen at night.
Known CATE-declined CPAP-on nocturnal oxygen 2 L in, positional therapy.
Nebulizers -2 mg 3 times daily
Aspiration precautions.
Mucolytic's
Observe off steroids-add prednisone taper. If wheezing returns
Cultures reviewed.
Blood cultures negative.
Influenza negative
Empiric antibiotics-ceftriaxone initiated.
Add atypical coverage.
Follows with Dr. Frazier for phlebotomy for his polycythemia vera.
DVT prophylaxis-on heparin.
GI prophylaxis-on pantoprazole.
Nutrition
Early mobilization.
Probable discharge in the next 24 hours-patient states 'has to leave tomorrow as his has surgery'
Dr. Pompa reviewed with at the bedside 06/12/2025
Patient last saw Dr. Traylor last week-Maintained on 2 L nocturnal oxygen, discussed [place] valves-patient was not excited about pursuing, Declined CPAP use for CATE, discussed potential need for transplant evaluation, presumed lung cancer screening
CT February 2026
Diagnostic data:
Chest x-ray 06/12/25-hazy bibasilar opacifications, left greater than right
CT chest 02/12/25: Scattered nodules, overall less prominent than prior imaging.� Evidence of centrilobular emphysema.� Largest nodule appears to be about 5 mm.� Prior left lower lobe and right upper lobe infiltrate appears to be improved
CT chest 11/29/24: Scattered nodules bilaterally, new area of irregular nodules left lower lobe and right upper lobe largest 6-7 mm
PFT 02/27/25: FVC 2.95/74%,FEV1 1.15/39%, ratio 51.� TLC 5.42/76%, DLCO 10.90/43%.� Severe obstruction, mild resection with severe gas exchange defect
6MWT 10/27/24: RA 94%, PRAVEEN 89% on RA. Hr 63-111bpm. Dyspnea index 0/10
6MWT 02/15/24: Total distance 950 feet, desaturation Nadirr 89% on room air, heart rate 123, dyspnea scale 2/10
HST 03/2024-moderate CATE, AHI 16.1, 91.1 min spent with O2 <89%
Echo 12/06/24: normal biventricular function, right heart pressures could not be determined
Subjective Data
-
Date of Service:
Date of Service: June 13, 2025
Chief Complaint: Pulmonary Follow Up and Dyspnea Follow Up
Subjective:
Feels better, still some wheezing, states that he needs to leave by tomorrow because his is having surgery
Review of Systems
General: Other ( per HPI)
Objective Data
Data Reviewed
Vital Signs / I&O:
Vital Signs
Temp Pulse Resp BP Pulse Ox
99.8 F 80 18 137/70 95
06/13/25 07:00 06/13/25 09:00 06/13/25 07:31 06/13/25 09:00 06/13/25 07:31
Intake and Output
06/12/25 06/13/25 06/14/25
06:59 06:59 06:59
Output Total 820 / 820
Balance -820 / -820
SaO2: 95
Nasal Cannula flow liters per minute: 2
Physical Exam
General: Respiratory Distress (n) and Comfortable
HEENT: Normocephalic, Anicteric and Moist Mucous Membranes
Cardiovascular: Regular Rhythm
Respiratory: Wheeze ( expiratory), Crackles ( rare basilar), Rhonchi (n), Non-Labored Respirations, Accessory Resp Muscle Use (n) and Stridor (n)
GI: Soft, Non Distended and Non Tender
Neurology: Awake, Alert and No Motor Deficits
Skin: Warm, Good Color, Cyanosis (n), Jaundice (n) and Rash
Labs/Micro/Reports
Lab Data
06/13/25 09:30
06/13/25 09:30
Microbiology
06/12/25 04:55 Blood/Venous Blood Culture - Preliminary
No Growth in 24 hours- Final report to follow
06/12/25 04:46 Blood/Venous Blood Culture - Preliminary
No Growth in 24 hours- Final report to follow
06/12/25 04:29 Nasal Swab Influenza Types A & B (DUNIA) - Final
Negative for Influenza A & B, NAAT
Negative results must be combined with clinical observations
and patient history.
Nucleic Acid Amplification test (NAAT)performed on the
[employer] platform.
[2025-06-13 15:00] VITALS: BP 126/56
[2025-06-13 16:04] VITALS: BP 123/60; PULSE 93; O2SAT 92
--- NOTE | 2025-06-13 17:07 | CM ---
CM met with Vivek to complete IA. He lives with his in a 2 story home with a walker and is on 1L O2 at night. Currently his O2 sat is 94 on 2L O2; also on Duoneb.
Pt is anxious to leave the hospital early tomorrow, stating his is having a procedure and he needs to be with her.
Patient uses the [facility] in [place]. Patient states that he is driving and independent prior to admission. CM will continue to follow for discharge planning needs. Plan: D/C to home, watch for home O2 changes. Consider VN
[2025-06-13 23:00] VITALS: BP 146/65
[2025-06-14 07:00] VITALS: BP 151/84
[2025-06-14] MEDS: DUONEB 3 ML INH ×3 (07:21→19:39)
[2025-06-14] MEDS: STERILE WATER FOR INJECTION 20 ML IV (07:57)
[2025-06-14] MEDS: ROCEPHIN 2000 MG IV (07:57)
[2025-06-14] MEDS: DEPAKENE 625 MG PO ×2 (07:57→20:21)
[2025-06-14] MEDS: DIOVAN 160 MG PO (07:57)
[2025-06-14] MEDS: SODIUM CHLORIDE 2 GRAM PO ×3 (07:58→21:07)
[2025-06-14] MEDS: PROTONIX 40 MG PO ×2 (07:58→20:22)
[2025-06-14] MEDS: FLOMAX 0.4 MG PO ×2 (07:58→20:21)
[2025-06-14] MEDS: MUCINEX 600 MG PO ×2 (07:58→20:22)
[2025-06-14] MEDS: CARDIZEM CD 180 MG PO (07:58)
[2025-06-14] MEDS: LASIX 20 MG PO (07:58)
[2025-06-14] MEDS: TYLENOL 1000 MG PO ×2 (08:06→20:27)
[2025-06-14 08:57] VITALS: BP 122/70; PULSE 115; O2SAT 88
--- NOTE | 2025-06-14 09:05 | W.PN.HOSP.TC ---
Addendum entered and electronically signed by Dot Louis MD 06/14/25 12:01:
Addendum
I went to see the patient again. He still feels well but concerned about his dropping oxygenation. His who is undergoing cardiac catheterization today at this hospital had asked him to stay in the hospital for concerns of worsening hypoxia
alone at home
Discussed with pulmonary doctor. Started prednisone
Hold discharge for today. Consulted pillowcase cleaner for safe discharge planning
End
Total time spent to see the patient, examined the patient, reviewed data and lab result, discuss treatment plan with patient, pulmonary doctor, nursing staff around 59 minutes
Original Note:
Today's Communication/Plan
-
.
Assessment / Plan
Assessment / Plan
Physical Exam
General: Conversant, comfortable, better looking with no distress
HEENT: Moist mucous membranes and Atraumatic
Respiratory: better exam today, no rales or wheezes heard.
Cardiac: S1/S2 and Tachycardia
GI: Soft and Non Tender
Genito-urinary: No Chen
Musculoskeletal: No Clubbing, No Cyanosis and No Edema
Skin: Warm and Dry
Neuro: AO x 3 and Nonfocal/grossly intact
Psych: Calm and Intact Judgment/Insight
74 years old male presented with cough, shortness of breath and fever
#Community-acquired pneumonia/acute on chronic hypoxic respiratory failure requiring 3 L of oxygen. Used 1 L of oxygen at home. Known COPD. Primary handle attacher Dr. Traylor.
Patient presented with leukocytosis, fever, hypoxia, tachycardia. He meets criteria of sepsis POA
He feels better ( I feel back to normal)
He requested to be discharge early in morning
c/p IV Abx
sent Ab to Pharmacy to finish course
He was seen by Dr Roth before leaving, recommended to start tapering prednisone dose at 40 mg Q 3 days
Blood culture NGTS
Home O2 is done
Negative COVID and influenza. Negative lactic acidosis
Oral Tylenol for fever to avoid tachycardia, will change it to PRN
Continue with breathing treatment and oxygen supplementation
Appreciate pulmonary help , primary pulmonary Dr Traylor.
Subdural Hematoma - October 2024
-Continue valproic acid for seizure for prophylaxis
He is not on systemic anticoagulation because of that
Paroxysmal Atrial Fibrillation s/p Ablation Jun 2015
Sinus tachycardia present on admission due to fever.
-Patient no longer on anticoagulation following subdural
-Continue diltiazem for rate control.
Essential Hypertension
-Continue diltiazem and valsartan
No hypotension.
chronic hyponatremia/SIADH
Patient follows with nephrology at [facility].
Continue with Lasix and oral sodium chloride tablets. Continue with regular diet
GERD / Tejada's Esophagus
-Continue PPI.
Patient is scheduled to have screening EGD 06/[address] Espinal received TT.
Hx Prostate Cancer s/p Radiation Seeds
-Continue Flomax
DVT proph: Subcu heparin
Code Status: Full Code
Total discharge time spent to see the patient, examined the patient, review data and lab results, discuss discharge plan with patient, nursing staff around 67 minutes
Anticipated Discharge: Today
Subjective/Interval History
-
Date of Service: June 14, 2025
No chest pain
No sob
No fevers
requesting discharge
Objective Data
-
Vital Signs:
Vital Signs
Temp Pulse Resp BP Pulse Ox
98.2 F 87 20 151/84 88
06/14/25 07:00 06/14/25 07:57 06/14/25 07:24 06/14/25 07:57 06/14/25 07:52
I&O
06/13/25 06/14/25 06/15/25
06:59 06:59 06:59
Intake Total 1400 / 1400
Output Total 820 / 820 200 / 200
Balance -820 / -820 1200 / 1200
--- NOTE | 2025-06-14 09:06 | PTCARENOTE ---
Physical therapy worked with patient and informed this RN that patient sitting HR was 110's and sustained 110's on ambulation. Pulse ox decreased to 84% on ambulation without oxygen. made aware.
--- NOTE | 2025-06-14 10:37 | W.PN.PUL.V3 ---
Today's Communication / Plan
-
.
Prednisone taper.
Home oxygen.
Finite course of antibiotics
Assessment
-
74-year-old former smoking male with underlying COPD followed by Dr. Traylor , atrial fibrillation, polycythemia, sleep apnea, hypertension, prostate cancer, Tejada's esophagus, subdural hematoma, gallops, presented with fevers, weakness and mild
cough, found to be hypoxemic and admitted with pneumonia/COPD-pulmonary software developer consultant for pneumonia and shortness of breath. 06/12/25.
Community acquired pneumonia.
COPD with acute exacerbation.
Leukocytosis.
Normocytic anemia-hemoglobin 12.9.
Mild hyponatremia.
Hyperglycemia
Conditions present prior to admission:
COPD.
Eosinophilia
Pulmonary nodule
Atrial fibrillation-ablation October 2024
Polycythemia.
Cardiomyopathy
CATE.
Esophageal cancer.
GERD.
Tejada's esophagus.
Hypertension.
Gout.
Prostate cancer.
Hyperlipidemia.
Cerebral amyloid.
Subdural hematoma-October 2024-on valproic acid for seizure prophylaxis
History of multiple concussions
Family history of pulmonary embolism.
Family history of COPD and lung cancer
Prostate biopsy. TURP. Cardiac ablation 2014. Right inguinal hernia repair. Tonsillectomy. Mohs surgery. Esophageal ablation.
Plan
Acute decompensation likely related to community acquired pneumonia in a patient with underlying COPD-which is moderate to severe with 40%, FEV1 and 43%, DLCO
Radiographs, pulmonary function testing, sleep studies and cardiac workup summarized below
Supplemental oxygen as needed-currently on 2 L
Home O2 assessment- Room air saturation 87%, ambulated on 2 L with desaturation requiring 3 L with exertion-reviewed with [employer]
Patient sleeps with 2 L of oxygen at night.
Known CATE-declined CPAP-on nocturnal oxygen 2 L in, positional therapy.
Nebulizers -2 mg 3 times daily.
Prednisone taper initiated
Aspiration precautions.
Mucolytic's
Cultures reviewed.
Blood cultures negative.
Influenza negative
Empiric antibiotics-ceftriaxone initiated-finite course of antibiotics
Follows with Dr. Frazier for phlebotomy for his polycythemia vera.
DVT prophylaxis-on heparin.
GI prophylaxis-on pantoprazole.
Nutrition
Early mobilization.
Probable discharge tomorrow-patient's had cardiac catheterization today
Dr. Pompa reviewed with at the bedside 06/12/2025
Patient last saw Dr. Traylor last week-Maintained on 2 L nocturnal oxygen, discussed [place] valves-patient was not excited about pursuing, Declined CPAP use for CATE, discussed potential need for transplant evaluation, presumed lung cancer screening
CT February 2026
Diagnostic data:
Chest x-ray 06/12/25-hazy bibasilar opacifications, left greater than right
CT chest 02/12/25: Scattered nodules, overall less prominent than prior imaging.� Evidence of centrilobular emphysema.� Largest nodule appears to be about 5 mm.� Prior left lower lobe and right upper lobe infiltrate appears to be improved
CT chest 11/29/24: Scattered nodules bilaterally, new area of irregular nodules left lower lobe and right upper lobe largest 6-7 mm
PFT 02/27/25: FVC 2.95/74%,FEV1 1.15/39%, ratio 51.� TLC 5.42/76%, DLCO 10.90/43%.� Severe obstruction, mild resection with severe gas exchange defect
6MWT 10/27/24: RA 94%, PRAVEEN 89% on RA. Hr 63-111bpm. Dyspnea index 0/10
6MWT 02/15/24: Total distance 950 feet, desaturation Nadirr 89% on room air, heart rate 123, dyspnea scale 2/10
HST 03/2024-moderate CATE, AHI 16.1, 91.1 min spent with O2 <89%
Echo 12/06/24: normal biventricular function, right heart pressures could not be determined
Subjective Data
-
Date of Service:
Date of Service: June 14, 2025
Chief Complaint: Pulmonary Follow Up and Dyspnea Follow Up
Subjective:
Feels better, still needs oxygen at rest as well as with exertion, no chest pain, cough, abdominal pain
Review of Systems
General: Other ( per HPI)
Objective Data
Data Reviewed
Vital Signs / I&O:
Vital Signs
Temp Pulse Resp BP Pulse Ox
98.2 F 87 20 151/84 88
06/14/25 07:00 06/14/25 07:57 06/14/25 07:24 06/14/25 07:57 06/14/25 07:52
Intake and Output
06/13/25 06/14/25 06/15/25
06:59 06:59 06:59
Intake Total 1400 / 1400
Output Total 820 / 820 200 / 200
Balance -820 / -820 1200 / 1200
SaO2: 88
Nasal Cannula flow liters per minute: 1
Physical Exam
General: Respiratory Distress (n) and Comfortable
HEENT: Normocephalic, Anicteric and Moist Mucous Membranes
Cardiovascular: Regular Rhythm
Respiratory: Wheeze ( expiratory), Crackles ( rare basilar), Rhonchi (n), Non-Labored Respirations, Accessory Resp Muscle Use (n) and Stridor (n)
GI: Soft, Non Distended and Non Tender
Neurology: Awake, Alert and No Motor Deficits
Skin: Warm, Good Color, Cyanosis (n), Jaundice (n) and Rash
Labs/Micro/Reports
Lab Data
06/13/25 09:30
06/13/25 09:30
Microbiology
06/12/25 04:55 Blood/Venous Blood Culture - Preliminary
No Growth in 48 hours- Final report to follow
06/12/25 04:46 Blood/Venous Blood Culture - Preliminary
No Growth in 48 hours- Final report to follow
06/12/25 04:29 Nasal Swab Influenza Types A & B (DUNIA) - Final
Negative for Influenza A & B, NAAT
Negative results must be combined with clinical observations
and patient history.
Nucleic Acid Amplification test (NAAT)performed on the
[employer] platform.
--- NOTE | 2025-06-14 11:36 | CM ---
Addendum entered by Jayla Bernal 06/14/25 12:13:
per Chanelle liaison patient declined [facility]
Original Note:
Patient seen at bedside
PT rec home health
discussed options with patient, prefer [facility]
notified Chanelle liaison from [facility], referral to be placed
[employer] is [employer] for his oxygen
states he has a portable at home
IMM explained & signed. In chart
patient states getting cardiac cath today
PLAN: home with [facility] when stable
states son will transport
--- NOTE | 2025-06-14 12:26 | VNURNOTE ---
Home Health Liaison met with patient at bedside to discuss [facility] nurse/therapy, visits, schedule and homebound status. Explained at length homebound criteria. Pt states that he is feeling better. He verbalizes understanding of his new home 02
reqs. He states that his son will bring in his portable 02 tank.
This author confirmed with Seb at [facility] that pt is current with them for continuous home 02. She confirmed that he has a stationary 02 concentrator and portables at home.
Patient stated he plans on going out of the home ad loretta once DC'ed. He is declining [facility] services. Advised him to follow up with PCP and they can write a Rx for us if he changes his mind after DC.
MARJAN Lutz updated.
No referral placed.
[2025-06-14] MEDS: DELTASONE 40 MG PO (13:06)
[2025-06-14 15:00] VITALS: BP 141/70
[2025-06-14 23:00] VITALS: BP 151/72
[2025-06-15 06:00] VITALS: BMI 25.5
[2025-06-15] MEDS: DUONEB 3 ML INH ×2 (07:23→13:34)
[2025-06-15 07:30] VITALS: BP 158/91
[2025-06-15] MEDS: SODIUM CHLORIDE 2 GRAM PO (08:19)
[2025-06-15] MEDS: DEPAKENE 625 MG PO (08:19)
[2025-06-15] MEDS: DIOVAN 160 MG PO (08:21)
[2025-06-15] MEDS: FLOMAX 0.4 MG PO (08:21)
[2025-06-15] MEDS: DELTASONE 40 MG PO (08:21)
[2025-06-15] MEDS: CARDIZEM CD 180 MG PO (08:22)
[2025-06-15] MEDS: MUCINEX 600 MG PO (08:22)
[2025-06-15] MEDS: PROTONIX 40 MG PO (08:22)
[2025-06-15] MEDS: ROCEPHIN 2000 MG IV (08:26)
[2025-06-15] MEDS: STERILE WATER FOR INJECTION 20 ML IV (08:26)
[2025-06-15] MEDS: LASIX 20 MG PO (08:26)
[2025-06-15] MEDS: TYLENOL 1000 MG PO (08:27)
--- NOTE | 2025-06-15 09:28 | W.PN.HOSP.TC ---
Today's Communication/Plan
-
dc
Assessment / Plan
Assessment / Plan
Physical Exam
General: Conversant, comfortable, better looking with no distress
HEENT: Moist mucous membranes and Atraumatic
Respiratory: better exam today, no rales or wheezes heard.
Cardiac: S1/S2 and not Tachycardia
GI: Soft and Non Tender
Genito-urinary: No Chen
Musculoskeletal: No Clubbing, No Cyanosis and No Edema
Skin: Warm and Dry
Neuro: AO x 3 and Nonfocal/grossly intact
Psych: Calm and Intact Judgment/Insight
74 years old male presented with cough, shortness of breath and fever
#Community-acquired pneumonia/acute on chronic hypoxic respiratory failure requiring 3 L of oxygen. Used 1 L of oxygen at home. Known COPD. Primary province archivist Dr. Traylor.
Patient presented with leukocytosis, fever, hypoxia, tachycardia. He meets criteria of sepsis POA
He feels better ( I feel back to normal)
He requested to be discharge early in morning
c/p IV Abx
sent Ab to Pharmacy to finish course
He was seen by Dr Roth before leaving, recommended to start tapering prednisone dose at 40 mg Q 3 days
Blood culture NGTS
Home O2 is done
Negative COVID and influenza. Negative lactic acidosis
Oral Tylenol for fever to avoid tachycardia, will change it to PRN
Continue with breathing treatment and oxygen supplementation
Appreciate pulmonary help , primary pulmonary Dr Traylor.
Subdural Hematoma - October 2024
-Continue valproic acid for seizure for prophylaxis
He is not on systemic anticoagulation because of that
Paroxysmal Atrial Fibrillation s/p Ablation Jun 2015
Sinus tachycardia present on admission due to fever.
-Patient no longer on anticoagulation following subdural
-Continue diltiazem for rate control.
Essential Hypertension
-Continue diltiazem and valsartan
No hypotension.
chronic hyponatremia/SIADH
Patient follows with nephrology at [facility].
Continue with Lasix and oral sodium chloride tablets. Continue with regular diet
GERD / Tejada's Esophagus
-Continue PPI.
Patient is scheduled to have screening EGD 06/[address] Espinal received TT.
Hx Prostate Cancer s/p Radiation Seeds
-Continue Flomax
DVT proph: Subcu heparin
Code Status: Full Code
Total discharge time spent to see the patient, examined the patient, review data and lab results, discuss discharge plan with patient, nursing staff around 67 minutes
Anticipated Discharge: Today
Subjective/Interval History
-
Date of Service: June 15, 2025
Objective Data
-
Vital Signs:
Vital Signs
Temp Pulse Resp BP Pulse Ox
97.6 F 75 16 158/91 98
06/15/25 07:30 06/15/25 08:22 06/15/25 07:30 06/15/25 08:22 06/15/25 07:30
I&O
06/14/25 06/15/25 06/16/25
06:59 06:59 06:59
Intake Total 1400 / 1400 1280 / 1280
Output Total 200 / 200
Balance 1200 / 1200 1280 / 1280
--- NOTE | 2025-06-15 10:23 | W.PN.PUL.V3 ---
Today's Communication / Plan
-
Assess discharge supplemental oxygen needs
Prednisone taper
Stable for proposed discharge-pulmonary will sign off-please call with questions
Assessment
-
74-year-old former smoking male with underlying COPD followed by Dr. Traylor , atrial fibrillation, polycythemia, sleep apnea, hypertension, prostate cancer, Tejada's esophagus, subdural hematoma, gallops, presented with fevers, weakness and mild
cough, found to be hypoxemic and admitted with pneumonia/COPD-pulmonary solutions consultant for pneumonia and shortness of breath. 06/12/25.
Community acquired pneumonia.
COPD with acute exacerbation.
Leukocytosis.
Normocytic anemia-hemoglobin 12.9.
Mild hyponatremia.
Hyperglycemia
Conditions present prior to admission:
COPD.
Eosinophilia
Pulmonary nodule
Atrial fibrillation-ablation October 2024
Polycythemia.
Cardiomyopathy
CATE.
Esophageal cancer.
GERD.
Tejada's esophagus.
Hypertension.
Gout.
Prostate cancer.
Hyperlipidemia.
Cerebral amyloid.
Subdural hematoma-October 2024-on valproic acid for seizure prophylaxis
History of multiple concussions
Family history of pulmonary embolism.
Family history of COPD and lung cancer
Prostate biopsy. TURP. Cardiac ablation 2014. Right inguinal hernia repair. Tonsillectomy. Mohs surgery. Esophageal ablation.
Plan
Acute decompensation likely related to community acquired pneumonia in a patient with underlying COPD-which is moderate to severe with 40%, FEV1 and 43%, DLCO
Radiographs, pulmonary function testing, sleep studies and cardiac workup summarized below
Supplemental oxygen as needed-currently on 2 L
Home O2 assessment- Room air saturation 87%, ambulated on 2 L with desaturation requiring 3 L with exertion-reviewed with MODERN LANGUAGES PROFESSOR
Patient sleeps with 2 L of oxygen at night.
Known CATE-declined CPAP-on nocturnal oxygen 2 L in, positional therapy.
Nebulizers -2 mg 3 times daily.
Prednisone taper continues
Aspiration precautions.
Mucolytic's
Cultures reviewed.
Blood cultures negative.
Influenza negative
Empiric antibiotics-ceftriaxone initiated-finite course of antibiotics
Follows with Dr. Frazier for phlebotomy for his polycythemia vera.
DVT prophylaxis-on heparin.
GI prophylaxis-on pantoprazole.
Nutrition
Early mobilization.
Stable for proposed discharge from a pulmonary perspective-pulmonary will sign off
Dr. Pompa reviewed with at the bedside 06/12/2025
Patient last saw Dr. Traylor last week-Maintained on 2 L nocturnal oxygen, discussed [place] valves-patient was not excited about pursuing, Declined CPAP use for CATE, discussed potential need for transplant evaluation, presumed lung cancer screening
CT February 2026
Diagnostic data:
Chest x-ray 06/12/25-hazy bibasilar opacifications, left greater than right
CT chest 02/12/25: Scattered nodules, overall less prominent than prior imaging.� Evidence of centrilobular emphysema.� Largest nodule appears to be about 5 mm.� Prior left lower lobe and right upper lobe infiltrate appears to be improved
CT chest 11/29/24: Scattered nodules bilaterally, new area of irregular nodules left lower lobe and right upper lobe largest 6-7 mm
PFT 02/27/25: FVC 2.95/74%,FEV1 1.15/39%, ratio 51.� TLC 5.42/76%, DLCO 10.90/43%.� Severe obstruction, mild resection with severe gas exchange defect
6MWT 10/27/24: RA 94%, PRAVEEN 89% on RA. Hr 63-111bpm. Dyspnea index 0/10
6MWT 02/15/24: Total distance 950 feet, desaturation Nadirr 89% on room air, heart rate 123, dyspnea scale 2/10
HST 03/2024-moderate CATE, AHI 16.1, 91.1 min spent with O2 <89%
Echo 12/06/24: normal biventricular function, right heart pressures could not be determined
Subjective Data
-
Date of Service:
Date of Service: June 15, 2025
Chief Complaint: Pulmonary Follow Up and Dyspnea Follow Up
Subjective:
Feels better less short of breath, no chest pain, productive cough or no pain
Review of Systems
HEENT: Other (Per HPI)
Objective Data
Data Reviewed
Vital Signs / I&O:
Vital Signs
Temp Pulse Resp BP Pulse Ox
97.6 F 75 16 158/91 98
06/15/25 07:30 06/15/25 08:22 06/15/25 07:30 06/15/25 08:22 06/15/25 07:30
Intake and Output
06/14/25 06/15/25 06/16/25
06:59 06:59 06:59
Intake Total 1400 / 1400 1280 / 1280
Output Total 200 / 200
Balance 1200 / 1200 1280 / 1280
SaO2: 98
Nasal Cannula flow liters per minute: 3
Physical Exam
General: Respiratory Distress (n) and Comfortable
HEENT: Normocephalic, Anicteric and Moist Mucous Membranes
Cardiovascular: Regular Rhythm
Respiratory: Wheeze ( expiratory), Crackles ( rare basilar), Rhonchi (n), Non-Labored Respirations, Accessory Resp Muscle Use (n) and Stridor (n)
GI: Soft, Non Distended and Non Tender
Neurology: Awake, Alert and No Motor Deficits
Skin: Warm, Good Color, Cyanosis (n), Jaundice (n) and Rash
Labs/Micro/Reports
Lab Data
06/13/25 09:30
06/13/25 09:30
Microbiology
06/12/25 04:55 Blood/Venous Blood Culture - Preliminary
No Growth in 72 hours- Final report to follow
06/12/25 04:46 Blood/Venous Blood Culture - Preliminary
No Growth in 72 hours- Final report to follow
[2025-06-15 10:37] VITALS: PULSE 95; O2SAT 97
--- NOTE | 2025-06-15 12:44 | CM ---
MD entered order for discharge.
Spoke with patient in room.
He said that he did not want VN .
His sister Alexa will be driving him home.
Pt has home oxygen with him.
IMM reviewed Pt signed on chart
PLAN Home no needs with Home O2.
--- NOTE | 2025-06-15 13:05 | PTCARENOTE ---
Pt informed this RN his is not getting discharged today and he would not feel comfortable going home alone, made aware.
[2025-06-15 13:42] VITALS: BP 141/78
--- NOTE | 2025-06-15 13:50 | W.DCSUMMARY ---
Discharge Summary
Discharge Data
Date of Admission: 06/12/25
Date of Discharge: 06/15/25
-
Pending Results: No
Hospital Course
74 years old male presented with fever and increasing cough. His symptoms were relatively acute in onset. Patient was scheduled to have elective EGD but he woke up with fever. He reported cough. Increasing hypoxia. Patient used home oxygen at
night. Patient has history of COPD. He was evaluated by pulmonary doctor. He received intravenous antibiotics. He did not have recurrent fever. White count came back normal. He was noticed to have exertional hypoxia. Patient was evaluated by
respiratory nurse. Pulmonary doctor recommended course of oral prednisone with taper in outpatient setting. Patient received nebulizer treatment. He started to feel better and was able to ambulate without distress. Blood culture came back
negative. Patient was evaluated by case management and physical therapy. He remained hemodynamically stable was discharged home in a stable condition.
Discharge Plan
-
Patient Disposition: Home (Routine Discharge)
Discharge Diagnosis/Procedures: Community acquired pneumonia.
You were seen by pulmonary doctor. You were given intravenous antibiotic. Pulmonary doctor recommended to finish antibiotic and course of prednisone therapy.
Diet: As tolerated
Referrals:
Maico Traylor MD [Active, Pulmonary Medicine] - in one to two weeks
Referral Note: Pneumonia
Vivek Phillip DO [Family Provider, [facility]] - in one week
Prescriptions:
New
guaifenesin 600 mg Tablet Extended Release 12hr
600 mg PO Q12 Qty: 20 0RF
amoxicillin-pot clavulanate 875-125 mg tablet
1 tab PO BID Qty: 14 0RF
prednisone 10 mg tablet
40 mg PO DAILY Qty: 26 0RF
Rx Instructions:
40 mg X 2 days then 30 mg X 3 days, 20 mg X 3 days, 10 mg X 3 days then off
Continued
Trelegy Ellipta 200-62.5-25 mcg Blister With Device
1 inh INHALATION R DAILY
omeprazole 40 mg Capsule,Delayed Release(Dr/Ec)
40 mg PO BID
albuterol sulfate 90 mcg/actuation HFA aerosol inhaler
2 puff INHALATION R Q6HPRN PRN (Reason: sob)
diltiazem HCl 180 mg Capsule,Extended Release 24 Hr
180 mg PO DAILY
furosemide [Lasix] 20 mg Tablet
20 mg PO DAILY
valsartan 160 mg Tablet
160 mg PO DAILY
sodium chloride 1,000 mg Tablet,Soluble
2,000 mg PO TID Qty: 180 0RF
valproic acid (as sodium salt) 250 mg/5 mL Solution
625 mg PO BID
azithromycin 250 mg Tablet
250 mg PO MOWEFR
Rx Instructions:
Wednesday, wednesday and wednesday
tamsulosin 0.4 mg Capsule
0.4 mg PO BID
Discharge Orders:
Discharge Patient (As Directed); Ordered 06/15/25
Ordered By: Dot Louis
Discharge Date and Time
Discharge Date/Time: 06/15/25 14:07
Print Language: PASHTO
== END 2025-06-15 14:07 | disposition home or self-care (01) | DRG 871 ==
LOC: 3 WEST ACU 09:15
PROVIDERS: ADMITTING PHYSICIAN Internal Medicine; EMERGENCY PHYSICIAN Student in an Organized Health Care Education/Training Program; FAMILY PHYSICIAN Family Medicine; OTHER PHYSICIAN Internal Medicine Critical Care Medicine
DX: A41.89 Other specified sepsis (principal); J18.9 Pneumonia, unspecified organism; J96.21 Acute and chronic respiratory failure with hypoxia; R65.21 Severe sepsis with septic shock; J44.0 Chronic obstructive pulmonary disease with (acute) lower respiratory infection; E22.2 Syndrome of inappropriate secretion of antidiuretic hormone; F17.200 Nicotine dependence, unspecified, uncomplicated; Z11.52 Encounter for screening for COVID-19; I48.0 Paroxysmal atrial fibrillation; I11.0 Hypertensive heart disease with heart failure; K22.70 Barrett's esophagus without dysplasia; K21.9 Gastro-esophageal reflux disease without esophagitis; D45 Polycythemia vera; Z79.899 Other long term (current) drug therapy
CPT/HCPCS: 71046; 80048; 81003; 81015; 83605; 85025; 85027; 87040; 87502; 87811; 93005; 94640; 94760; 96365; 96375; 97116; 97162; 97166; 99285